=== PATIENT | male | born 1980 | race Caucasian/White ===

== ENCOUNTER 2018-04-09 11:58 | Emergency (ER) | payer OTHER ==
--- OUTSIDE RECORDS SUMMARY | 2018-04-09 12:02 | XMS REPORT | Clinical Summary ---
:1980 Author Organization [facility] Address [address] [place] [address] Phone Care Team Providers Name Role Phone Unavailable Primary Care Provider Unavailable Allergies No Known Allergies Current Medications Prescription Sig. Disp. Refills Start Date End Date Status pantoprazole Take 40 mg by 03/09/2018 Discontinued (PROTONIX) 40 MG mouth daily. tablet varenicline (CHANTIX) Take 1 mg by 03/09/2018 Discontinued 1 mg tablet mouth 2 (two) times daily Give with meals and with a full glass of water. . aspirin 81 MG EC Take 81 mg by 03/09/2018 Discontinued tablet mouth daily. gabapentin Take 300 mg by 03/09/2018 Discontinued (NEURONTIN) 300 MG mouth 3 (three) capsule times daily. butalbital-acetaminop Take 1 tablet by 03/09/2018 Discontinued hen-caffeine mouth every 6 (FIORICET, ESGIC) (six) hours as 50-325-40 mg per needed for tablet Headaches. ondansetron (ZOFRAN) Take by mouth 03/09/2018 Discontinued 8 MG tablet every 8 (eight) hours as needed for Nausea. benzonatate Take 100 mg by 03/09/2018 Discontinued (TESSALON) 100 MG mouth 3 (three) capsule times daily as needed for Cough. atorvastatin Take 40 mg by 03/09/2018 Discontinued (LIPITOR) 40 MG mouth daily. tablet omega-3 fatty Take 2 g by 03/09/2018 Discontinued acids-fish oil mouth 2 (two) 340-1,000 mg Cap per times daily. capsule naproxen Take 220 mg by 03/09/2018 Discontinued (ALEVE,ANAPROX,MIDOL) mouth 2 (two) 220 MG tablet times daily with breakfast and dinner. ergocalciferol Take 50,000 03/09/2018 Discontinued (VITAMIN D2) 50,000 Units by mouth unit capsule once a week. loratadine (CLARITIN) Take 10 mg by 03/09/2018 Discontinued 10 mg tablet mouth daily. Active Problems Not on file Encounters Date Type Specialty Care Team Description 03/10/2018 Procedure Pass Gastroenterology 03/09/2018 Anesthesia Event Gastroenterology Yair Puckett MD 03/03/2018 Outside Orders Rick Alcala Abdominal pain, MD Pipo generalized (Primary Dx) after 04/08/2017 Social History Tobacco Use Types Packs/Day Years Used Date Current Every Day Smoker 0.5 Smokeless Tobacco: Never Used Tobacco Cessation: Ready to Quit: Yes Alcohol Use Drinks/Week oz/Week Comments Yes 6 pack a month Sex Assigned at Date Recorded Not on file Last Filed Vital Signs Vital Sign Reading Time Taken Blood Pressure - - Pulse - - Temperature - - Respiratory Rate - - Oxygen Saturation - - Inhaled Oxygen Concentration - - Weight 113.4 kg (250 lb) 03/05/2018 11:20 AM CDT Height 185.4 cm (6' 1") 03/05/2018 11:20 AM CDT Body Mass Index 32.98 03/05/2018 11:20 AM CDT Plan of Treatment Not on file Results Not on fileafter 04/08/2017
--- OUTSIDE RECORDS SUMMARY | 2018-04-09 12:02 | XMS REPORT ---
:1980 [facility] Address [address] [place] [address] Dr. Cuevas [address] [place] [address] Care Team Providers Name Role Phone Unavailable Unavailable Unavailable Problems This patient has no known problems. Allergies, Adverse Reactions, Alerts This patient has no known allergies or adverse reactions. Medications This patient has no known medications. Results Test Description Test Time Test Comments Text Results Atomic Results Result Comments CT ABDOMEN/PELVIS WITH 2017-04-16 [facility]3080 15:41:00 [place], [place] [id number] IMAGING REPORTPatient Name: Odalys PHILIPte of Service: [id number]: 36 Sex: M Order #: [id number] [facility] 1980 [facility] Number: [id number] Record Number: [id number] Hospital Number: [id number] Physician: ESTELA TELLEZ TANOrdering Physician: RUPERTO KC ABDOMEN AND PELVIS WITH CONTRAST:CLINICAL HISTORY: Pain in the left lower rib cage/upper abdomen post traumaTECHNIQUE: Examination is performed following intravenous administration of100 mL of Isovue-300. 4 mm axial sections were obtained with coronal andsagittal reconstructions.This CT exam was performed using one or more of the following dosereduction techniques: Automated exposure control, adjustment of the MA andor KV according to patient size or use of iterative reconstructiontechnique.FINDINGS: The enhanced liver, spleen, pancreas, adrenals, kidneys, uretersand bladder oral normal.The retrocecal appendix is normal. The bowel loops are unremarkable.There is no evidence of free air or ascites.There is no evidence of a soft tissue hematoma.The lower rib cage, lumbar spine and bony pelvis are normal.Impression: Normal CT scan abdomen and pelvisElectronically Signed By: Giovanni Altman M.D., 04/16/2017 3:39 PMLegally authenticated by DEMARCO Merlos 2017-04-16 15:39:04 CT THORAX W/CONT 2017-04-16 [facility]3080 15:39:00 [place], [place] [id number] IMAGING REPORTPatient Name: Dharmesh PHILIP of Service: [id number]: 36 Sex: M Order #: [id number] [facility] 1980 [facility] Number: [id number] Record Number: [id number] Hospital Number: [id number] Physician: ESTELA TELLEZ TANOrdering Physician: RUPERTO KC CHEST WITH INTRAVENOUS CONTRAST:CLINICAL HISTORY: Pain in the left lower rib cage after trauma; dizzinessand nauseaTECHNIQUE: Examination is performed following intravenous administration of100 mL of Isovue-300. 4 mm axial sections were obtained with coronal andsagittal reconstructions.This CT exam was performed using one or more of the following dosereduction techniques: Automated exposure control, adjustment of the MA andor KV according to patient size or use of iterative reconstructiontechnique.FINDINGS: The heart and great vessels are within normal limits.There is no evidence of mediastinal or hilar adenopathy and the lungs areclear with no focal infiltrates, pneumothorax or contusion.The bony thorax appears grossly intact.Impression: Normal CT scan of the chestElectronically Signed By: Giovanni Altman M.D., 04/16/2017 3:36 PMLegally authenticated by DEMARCO Merlos 2017-04-16 15:36:49
--- NOTE | 2018-04-09 13:32 | ER ---
Nurse's Notes [facility] Name: Diogo Holden Age: 37 yrs Sex: Male : 1980 Arrival Date: 04/09/2018 Time: 12:03 Bed 23 Private MD: Diagnosis: Low back pain Presentation: 04/09 12:13 Presenting complaint: Patient states: Low back pain that radiates down bilateral legs. aj Patient reports pain has been chronic for over 1 year. Seen in ER for this complaint in [place]. Transition of care: patient was not received from another setting of care. Onset of symptoms was January 2017. Initial Sepsis Screen: Does the patient meet any 2 criteria? No. Patient's initial sepsis screen is negative. Does the patient have a suspected source of infection? No. Patient's initial sepsis screen is negative. Care prior to arrival: None. 12:13 Method Of Arrival: Ambulatory 12:13 Acuity: HEATHER 4 aj Triage Assessment: 12:17 General: Appears in no apparent distress. comfortable, Behavior is calm, cooperative, aj appropriate for age. Pain: Complains of pain in coccyx, left lower back, right lower back, left gluteus amalia, right gluteus amalia, left gluteal fold and right gluteal fold. Neuro: Level of Consciousness is awake, alert, obeys commands, Oriented to person, place, time, situation, Appropriate for age. Respiratory: Airway is patent Respiratory effort is even, unlabored, Respiratory pattern is regular, symmetrical. Derm: Skin is intact, is healthy with good turgor, Skin is pink, warm \\T\\ dry. normal. Musculoskeletal: Range of motion: intact in all extremities, Reports pain in coccyx, left lower back, right lower back, left gluteus amalia, right gluteus amalia, left gluteal fold and right gluteal fold. Historical: - Allergies: 12:17 No Known Allergies; aj - Home Meds: 12:17 gabapentin 300 mg oral cap 3 times per day [Active]; Chantix oral oral [Active]; Zofran aj (as hydrochloride) 4 mg Oral tab [Active]; aspirin 81 mg Oral chew 1 tab once daily [Active]; Butalbital Compound 50-325-40 mg Oral tab 1 tab every 4 hours [Active]; loratadine 10 mg oral TbDL 1 tab once daily [Active]; atorvastatin 20 mg oral tab 1 tab once daily [Active]; pantoprazole 40 mg oral TbEC 1 tab once daily [Active]; - PMHx: 12:17 Hyperlipidemia; Chronic pain; "stomach issues"; aj - PSHx: 12:17 wisdom teeth; aj - Immunization history:: Adult Immunizations up to date. - Social history:: Smoking status: Patient uses tobacco products, smokes one pack cigarettes per day. Screenin:00 Abuse screen: Denies threats or abuse. Denies injuries from another. Nutritional kr2 screening: No deficits noted. Tuberculosis screening: No symptoms or risk factors identified. Fall Risk None identified. Assessment: 13:00 General: Appears in no apparent distress. uncomfortable, well groomed, well developed, kr2 well nourished, Behavior is calm, cooperative, appropriate for age. Pain: Complains of pain in back Pain radiates to right leg and left leg Pain currently is 6 out of 10 on a pain scale. Quality of pain is described as aching, sharp, Pain began 1 year ago Is continuous, Alleviated by medications, rest, Aggravated by increased activity. Neuro: Level of Consciousness is awake, alert, obeys commands, Oriented to person, place, time, situation, French Tutor are equal bilaterally Moves all extremities. Intact. Cardiovascular: Capillary refill < 3 seconds in bilateral fingers Patient's skin is warm and dry. Respiratory: Airway is patent Respiratory effort is even, unlabored, Respiratory pattern is regular, symmetrical, Breath sounds are clear bilaterally. GI: Abdomen is flat, non-distended. : No signs and/or symptoms were reported regarding the genitourinary system. EENT: Oral mucosa is moist. Derm: Skin is intact, is healthy with good turgor, Skin is pink, warm \\T\\ dry. Musculoskeletal: Circulation, motion, and sensation intact. Vital Signs: 12:17 BP 125 / 85; Pulse 72; Resp 18; Temp 98.2; Pulse Ox 99% on R/A; Weight 104.33 kg; aj Height 6 ft. 1 in. (185.42 cm); Pain 6/10; 13:15 BP 124 / 78; Pulse 70; Resp 16; Pulse Ox 99% on R/A; kr2 12:17 Body Mass Index 30.34 (104.33 kg, 185.42 cm) ED Course: 12:03 Patient arrived in ED. sb2 12:14 Triage completed. aj 12:17 Arm band placed on right wrist. Patient placed in an exam room. aj 12:53 Barbara Ferrer, RN is Primary Nurse. kr2 12:56 Glen Remy NP is PHCP. pm1 12:56 Maximilian Cain MD is Attending Physician. pm1 13:00 Patient has correct armband on for positive identification. Bed in low position. Call kr2 light in reach. Side rails up X 1. Adult w/ patient. Pulse ox on. NIBP on. Door closed. Warm blanket given. Head of bed elevated. 13:50 No provider procedures requiring assistance completed. Patient did not have IV access kr2 during this emergency room visit. Administered Medications: No medications were administered Outcome: 13:32 Discharge ordered by . pm1 13:50 Discharged to home ambulatory, with family. kr2 13:50 Condition: good 13:50 Discharge instructions given to patient, family, Instructed on discharge instructions, follow up and referral plans. medication usage, Demonstrated understanding of instructions, follow-up care, medications, Prescriptions given X 2. 13:51 Patient left the ED. kr2 Signatures: Rita Brumfield, RN RN Glen Dudley, LETICIA CHILD AND FAMILY THERAPIST pm1 Barbara Ferrer, SLAVA RN kr2 Radha Paul sb2
--- NOTE | 2018-04-09 13:32 | EDPHYS ---
Physician Documentation [facility] Name: Diogo Holden Age: 37 yrs Sex: Male : 1980 Arrival Date: 04/09/2018 Time: 12:03 Bed 23 Private MD: ED Physician Maximilian Cain HPI: 04/09 13:30 This 37 yrs old Male presents to ER via Ambulatory with complaints of Back pm1 Pain. 13:30 The patient presents with pain that is chronic, with no known mechanism of injury. The pm1 symptoms are located in the low back. Onset: The symptoms/episode began/occurred 1 year(s) ago. The pain radiates to the right leg and left leg. Associated signs and symptoms: Pertinent negatives: abdominal pain, chest pain, dysuria, fever, incontinence, numbness, tingling, urinary retention. The problem was sustained Result of fall injury in the past. Modifying factors: The patient symptoms are alleviated by nothing, the patient symptoms are aggravated by bending, movement, walking. Severity of symptoms: in the emergency department the symptoms are unchanged. The patient has experienced similar episodes in the past, chronically. Historical: - Allergies: 12:17 No Known Allergies; aj - Home Meds: 12:17 gabapentin 300 mg oral cap 3 times per day [Active]; Chantix oral oral [Active]; Zofran aj (as hydrochloride) 4 mg Oral tab [Active]; aspirin 81 mg Oral chew 1 tab once daily [Active]; Butalbital Compound 50-325-40 mg Oral tab 1 tab every 4 hours [Active]; loratadine 10 mg oral TbDL 1 tab once daily [Active]; atorvastatin 20 mg oral tab 1 tab once daily [Active]; pantoprazole 40 mg oral TbEC 1 tab once daily [Active]; - PMHx: 12:17 Hyperlipidemia; Chronic pain; "stomach issues"; aj - PSHx: 12:17 wisdom teeth; aj - Immunization history:: Adult Immunizations up to date. - Social history:: Smoking status: Patient uses tobacco products, smokes one pack cigarettes per day. ROS: 13:30 Constitutional: Negative for fever, chills, and weight loss, Eyes: Negative for injury, pm1 pain, redness, and discharge, ENT: Negative for injury, pain, and discharge, Neck: Negative for injury, pain, and swelling, Cardiovascular: Negative for chest pain, palpitations, and edema, Respiratory: Negative for shortness of breath, cough, wheezing, and pleuritic chest pain, Abdomen/GI: Negative for abdominal pain, nausea, vomiting, diarrhea, and constipation. 13:30 : Negative for injury, bleeding, discharge, and swelling, MS/Extremity: Negative for injury and deformity, Skin: Negative for injury, rash, and discoloration, Neuro: Negative for headache, weakness, numbness, tingling, and seizure. 13:30 Back: Positive for of the left low back and right low back. Exam: 13:30 Constitutional: This is a well developed, well nourished patient who is awake, alert, pm1 and in no acute distress. Head/Face: Normocephalic, atraumatic. Eyes: Pupils equal round and reactive to light, extra-ocular motions intact. Lids and lashes normal. Conjunctiva and sclera are non-icteric and not injected. Cornea within normal limits. Periorbital areas with no swelling, redness, or edema. ENT: Nares patent. No nasal discharge, no septal abnormalities noted. Tympanic membranes are normal and external auditory canals are clear. Oropharynx with no redness, swelling, or masses, exudates, or evidence of obstruction, uvula midline. Mucous membranes moist. Neck: Trachea midline, no thyromegaly or masses palpated, and no cervical lymphadenopathy. Supple, full range of motion without nuchal rigidity, or vertebral point tenderness. No Meningismus. Chest/axilla: Normal chest wall appearance and motion. Nontender with no deformity. No lesions are appreciated. Cardiovascular: Regular rate and rhythm with a normal S1 and S2. No gallops, murmurs, or rubs. Normal PMI, no JVD. No pulse deficits. Respiratory: Lungs have equal breath sounds bilaterally, clear to auscultation and percussion. No rales, rhonchi or wheezes noted. No increased work of breathing, no retractions or nasal flaring. Abdomen/GI: Soft, non-tender, with normal bowel sounds. No distension or tympany. No guarding or rebound. No evidence of tenderness throughout. 13:30 MS/ Extremity: Pulses equal, no cyanosis. Neurovascular intact. Full, normal range of motion. 13:30 Back: normal spinal alignment noted, muscle spasm, is appreciated in the left low back, left mid back, right mid back and right low back. 13:30 Neuro: Orientation: is normal, Mentation: is normal, Motor: is normal, moves all fours, Sensation: is normal, no obvious gross deficits, Gait: is steady, at a normal pace, without difficulty, Deep tendon reflexes are 2+ (normal) in the right Achilles and left Achilles, Babinski testing is normal. Vital Signs: 12:17 BP 125 / 85; Pulse 72; Resp 18; Temp 98.2; Pulse Ox 99% on R/A; Weight 104.33 kg; aj Height 6 ft. 1 in. (185.42 cm); Pain 6/10; 13:15 BP 124 / 78; Pulse 70; Resp 16; Pulse Ox 99% on R/A; kr2 12:17 Body Mass Index 30.34 (104.33 kg, 185.42 cm) aj MDM: 12:58 Patient medically screened. pm1 13:30 Data reviewed: vital signs. Data interpreted: Pulse oximetry: on room air is 99 %. pm1 Interpretation: normal. Counseling: I had a detailed discussion with the patient and/or guardian regarding: the historical points, exam findings, and any diagnostic results supporting the discharge/admit diagnosis, the need for outpatient follow up, to return to the emergency department if symptoms worsen or persist or if there are any questions or concerns that arise at home. Administered Medications: No medications were administered Disposition: 04/10 07:21 Co-signature as Attending Physician, Maximilian Cain MD I agree with the assessment and wilder plan of care. Disposition: 04/09/18 13:32 Discharged to Home. Impression: Low back pain. - Condition is Stable. - Discharge Instructions: Back Pain, Adult, Chronic Back Pain, Sciatica. - Prescriptions for Naprosyn 500 mg Oral Tablet - take 1 tablet by ORAL route 2 times per day take with food; 30 tablet. Cyclobenzaprine 10 mg Oral Tablet - take 1 tablet by ORAL route every 8 hours As needed; 30 tablet. - Medication Reconciliation Form, Thank You Letter form. - Follow up: Emergency Department; When: As needed; Reason: Worsening of condition. Follow up: Private Physician; When: 2 - 3 days; Reason: Recheck today's complaints, Continuance of care, Re-evaluation by your physician. - Problem is new. - Symptoms have improved. Signatures: Rita Brumfield, RN RN Maximilian Colmenares MD MD cha Marinas, Patrick, OVEN DRIER TENDER OVEN DRIER TENDER pm1 Barbara Ferrer RN RN kr2 Corrections: (The following items were deleted from the chart) 04/09 13:51 13:32 04/09/2018 13:32 Discharged to Home. Impression: Low back pain. Condition is kr2 Stable. Forms are Medication Reconciliation Form, Thank You Letter, Antibiotic Education, Prescription Opioid Use. Follow up: Emergency Department; When: As needed; Reason: Worsening of condition. Follow up: Private Physician; When: 2 - 3 days; Reason: Recheck today's complaints, Continuance of care, Re-evaluation by your physician. Problem is new. Symptoms have improved. pm1
== END 2018-04-09 13:51 | disposition home or self-care (01) ==
LOC: ER 11:58
DX: M54.5 Low back pain (principal); E78.5 Hyperlipidemia, unspecified; F17.210 Nicotine dependence, cigarettes, uncomplicated
CPT/HCPCS: 99283

== ENCOUNTER 2018-06-24 16:25 | Emergency (ER) | payer OTHER ==
--- OUTSIDE RECORDS SUMMARY | 2018-06-24 16:27 | XMS REPORT ---
:1980 [facility] Address [address] Cuevas [address] [place] [address] Care Team Providers Name Role Phone Unavailable Unavailable Unavailable Problems This patient has no known problems. Allergies, Adverse Reactions, Alerts This patient has no known allergies or adverse reactions. Medications This patient has no known medications. Results Test Description Test Time Test Comments Text Results Atomic Results Result Comments CT ABDOMEN/PELVIS WITH 2017-04-16 [facility]3080 15:41:00 [place], [place] [id number] IMAGING REPORTPatient Name: Dharmesh PHILIP of Service: [id number]: 36 Sex: M Order #: [id number] Room: ERSDOB: 1980 X-Ray Number: [id number] Record Number: [id number] Hospital Number: [id number] Physician: ESTELA TELLEZ TANOrdering Physician: RUPERTO KC [...] Merlos 2017-04-16 15:39:04 CT THORAX W/CONT 2017-04-16 [facility]3080 15:39:00 [place], [place] [id number] IMAGING REPORTPatient Name: Dharmesh PHILIP of Service: [id number]: 36 Sex: M Order #: [id number] [facility] 1980 [facility] Number: [id number] Record Number: [id number] Hospital Number: [id number] Physician: ESTELA TELLEZ TANOrdering Physician: RUPERTO KC [...]
--- OUTSIDE RECORDS SUMMARY | 2018-06-24 16:27 | XMS REPORT ---
:1980 Author Organization [employer] Care Team Providers Name Role Phone Sirisha Meadows Provider Role Unavailable Allergies, Adverse Reactions, Alerts Substance Reaction Event Type mucomyst Info Not Available Non Drug Allergy Problems Problem Type Condition Code Onset Dates Condition Status Assessment Lumbar back pain with radiculopathy M54.17 Active affecting right lower extremity Problem Cigarette nicotine dependence F17.210 Active without complication Problem Cyclical vomiting with nausea, G43.A0 Active intractability of vomiting not specified Problem Vitamin D deficiency E55.9 Active Problem Mixed hyperlipidemia E78.2 Active Problem 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 Problem Gastroesophageal reflux disease K21.9 Active without esophagitis Problem Migraine with aura and without G43.109 Active status migrainosus, not intractable Problem Anxiety F41.9 Active Problem Environmental allergies Z91.09 Active Assessment 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 Assessment Mixed hyperlipidemia E78.2 Active Assessment Other specified abnormal findings R79.89 Active of blood chemistry Assessment Vitamin D deficiency E55.9 Active Assessment Other abnormality of red blood R71.8 Active cells Assessment Mid-back pain, acute M54.9 Active Medications Medication Code Code Instructions Start End Status Dosage System Date Date Gabapentin [facility] 64498909990 300 MG Orally Active 1 capsule Three times a day Pantoprazole [facility] 27936484460 40 MG Orally Active 1 tablet Sodium Once a day Borage Oil [facility] 33688625665 1000 MG Orally Active not defined Decara [facility] 68102873889 10512 UNIT Active 1 capsule Orally weekly Fish Oil [facility] 35903126337 1000 MG Orally Active 1 capsule Once a day Butalbital-APAP- [facility] 88820276161 50-300-40 MG Active 1 capsule Caffeine Orally prn as needed Chantix [facility] 67160316593 1 MG Orally Active 1 tablet Twice a day Flax Seed Oil [facility] 72855736083 1000 MG Orally Active not defined Benzonatate [facility] 61166720468 200 MG Orally Active 1 capsule prn Loratadine [facility] 86069248572 10 MG Orally Active 1 tablet Once a day Aspirin 81 ND 52284101024 81 MG Orally Active 1 tablet Once a day Butalbital-Aceta [facility] 11113501645 50-325 MG March Active 1 tablet minophen Orally every 6 2017, as needed hrs prn 2017 Migraine Atorvastatin [facility] 21471950964 40 MG Orally Active 1 tablet Calcium Once a day in evening Zofran [facility] 35912182741 4 MG Orally BID Active 1 tab prn nausea Aleve [facility] 59569574515 220 MG Orally Active 1 tablet every 12 hrs with food or milk as needed Results No Known Results Summary Purpose [employer] Submission
--- OUTSIDE RECORDS SUMMARY | 2018-06-24 16:27 | XMS REPORT ---
:1980 Author Organization [employer] Care Team Providers Name Role Phone Sirisha Meadows Provider Role Unavailable Allergies No Known Allergies Problems Problem Type Condition Code Onset Dates Condition Status Problem Cigarette nicotine dependence F17.210 Active without [...] F41.9 Active Problem Environmental allergies Z91.09 Active Medications No Known Medications Results No Known Results Summary Purpose [employer] Submission
--- OUTSIDE RECORDS SUMMARY | 2018-06-24 16:27 | XMS REPORT | Clinical Summary ---
:1980 Author Organization [facility] Address [address] [place] [address] Phone Care Team Providers Name Role Phone [...] pain, MD Pipo generalized (Primary Dx) after 06/23/2017 Social History Tobacco Use Types Packs/Day Years [...] Not on file Results Not on fileafter 06/23/2017
--- OUTSIDE RECORDS SUMMARY | 2018-06-24 16:27 | XMS REPORT ---
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 Assessment Lumbar back pain with radiculopathy M54.17 Active affecting right lower extremity Medications Medication Code Code Instructions Start End Status Dosage System Date Date Gabapentin [facility] 92703990537 300 MG Orally Active 1 capsule Three times a day Pantoprazole [facility] 99539633149 40 MG Orally Active 1 tablet Sodium Once a day Borage Oil [facility] 26624798260 1000 MG Orally Active not defined Decara [facility] 67478877891 13587 UNIT Active 1 capsule Orally weekly Fish Oil [facility] 06311359283 1000 MG Orally Active 1 capsule Once a day Butalbital-APAP- [facility] 45218170518 50-300-40 MG Active 1 capsule Caffeine Orally prn as needed Chantix [facility] 01539573901 1 MG Orally Active 1 tablet Twice a day Flax Seed Oil [facility] 35279403212 1000 MG Orally Active not defined Benzonatate [facility] 52893017845 200 MG Orally Active 1 capsule prn Loratadine [facility] 70010144039 10 MG Orally Active 1 tablet Once a day Aspirin 81 NDC 86960462787 81 MG Orally Active 1 tablet Once a day Butalbital-Aceta [facility] 31795966230 50-325 MG March Active 1 tablet minophen Orally every 6 2017 03, as needed hrs prn 2017 Migraine Atorvastatin [facility] 39970119446 40 MG Orally Active 1 tablet Calcium Once a day in evening Zofran [facility] 07802009329 4 MG Orally BID Active 1 tab prn nausea Aleve [facility] 65566552974 220 MG Orally Active 1 tablet every 12 hrs with food or milk as needed Results No Known Results Summary Purpose eClinicalWorks Submission
[2018-06-24] MEDS ORDERED: LIDOCAINE 1% MPF 5 ML VIAL ONE (17:49)
[2018-06-24] MEDS ORDERED: BUPIVACAINE 0.5% PF 10 ML VIAL ONE (17:50)
[2018-06-24] MEDS ORDERED: IBUPROFEN 400 MG TAB ONE (17:50)
[2018-06-24] MEDS ORDERED: TETANUS & DIPHTHERIA TOX,ADULT 0.5 ML VIAL ONE (17:52)
--- NOTE | 2018-06-24 18:39 | ER ---
Nurse's Notes [facility] Name: Diogo Holden Age: 37 yrs Sex: Male : 1980 Arrival Date: 06/24/2018 Time: 16:28 Bed 15 Private MD: Diagnosis: Laceration without foreign body of finger without damage to nail-Right Index and Middle Fingers Presentation: 06/24 16:41 Presenting complaint: Patient states: right 2nd and 3rd digit laceration on sheet rock sv that occurred about 30 mins ago. Transition of care: patient was not received from another setting of care. Onset of symptoms was June 24, 2018 at 16:00. Care prior to arrival: None. 16:41 Method Of Arrival: Ambulatory sv 16:41 Acuity: HEATHER 3 sv Historical: - Allergies: 16:44 No Known Allergies; sv - Home Meds: 16:44 aspirin 81 mg oral chew once daily [Active]; atorvastatin 20 mg Oral tab 1 tab once sv daily [Active]; Butalbital Compound 50-325-40 mg Oral tab 1 tab every 4 hours [Active]; Chantix Oral [Active]; gabapentin 300 mg Oral cap 3 times per day [Active]; loratadine 10 mg Oral TbDL 1 tab once daily [Active]; pantoprazole 40 mg Oral chew 1 tab once daily [Active]; Zofran (as hydrochloride) 4 mg Oral tab [Active]; - PMHx: 16:44 "stomach issues"; Chronic pain; Hyperlipidemia; sv - PSHx: 16:44 wisdom teeth; sv - Immunization history:: Adult Immunizations up to date, Last tetanus immunization: unknown. - Social history:: Smoking status: Patient uses tobacco products, smokes one pack cigarettes per day. - Ebola Screening: : No symptoms or risks identified at this time. Screenin:04 Abuse screen: Denies threats or abuse. Denies injuries from another. Nutritional aj1 screening: No deficits noted. Tuberculosis screening: No symptoms or risk factors identified. 19:09 Fall Risk None identified. aj1 Assessment: 17:20 General: Appears in no apparent distress. uncomfortable, Behavior is calm, cooperative, aj1 appropriate for age. Pain: Complains of pain in palmar aspect of middle phalanx of right middle finger and palmar aspect of middle phalanx of right index finger Pain does not radiate. Neuro: Level of Consciousness is awake, alert, obeys commands, Oriented to person, place, time, situation. Cardiovascular: Patient's skin is warm and dry. Respiratory: Airway is patent Respiratory effort is even, unlabored, Respiratory pattern is regular, symmetrical. GI: No signs and/or symptoms were reported involving the gastrointestinal system. : No signs and/or symptoms were reported regarding the genitourinary system. EENT: No signs and/or symptoms were reported regarding the EENT system. Derm: Skin is pink, warm \\T\\ dry. Musculoskeletal: Capillary refill < 3 seconds. Injury Description: Laceration sustained to palmar aspect of middle phalanx of right middle finger and palmar aspect of middle phalanx of right index finger is bleeding moderately. 18:10 Reassessment: Patient appears in no apparent distress at this time. No changes from aj1 previously documented assessment. Patient and/or family updated on plan of care and expected duration. Pain level reassessed. Patient is alert, oriented x 3, equal unlabored respirations, skin warm/dry/pink. 19:07 Reassessment: Patient appears in no apparent distress at this time. No changes from sv previously documented assessment. Patient and/or family updated on plan of care and expected duration. Pain level reassessed. Patient is alert, oriented x 3, equal unlabored respirations, skin warm/dry/pink. Vital Signs: 16:44 BP 155 / 109; Pulse 92; Resp 20; Pulse Ox 97% ; Weight 113.4 kg; Height 6 ft. 1 in. sv (185.42 cm); Pain 3/10; 18:04 BP 149 / 102; Pulse 88; Resp 18; Pulse Ox 99% ; aj1 16:44 Body Mass Index 32.98 (113.40 kg, 185.42 cm) sv ED Course: 16:28 Patient arrived in ED. mr 16:43 Triage completed. sv 16:44 Arm band placed on right wrist. sv 17:18 Maximilian Padilla PA is PHCP. cp 17:18 Aidan Escoto MD is Attending Physician. cp 17:18 Molly Lizarraga, SLAVA is Primary Nurse. aj1 17:25 Wound care: to laceration located on palmar aspect of distal phalanx of right ring jp3 finger, palmar aspect of middle phalanx of right ring finger, palmar aspect of distal phalanx of right middle finger, palmar aspect of middle phalanx of right middle finger, palmar aspect of distal phalanx of right index finger and palmar aspect of middle phalanx of right index finger was cleaned with Hibiclens, soaked in Betadine solution, debrided using irrigated with normal saline, Patient tolerated well. 17:36 Diet: Patient given ice chips. Patient given water. jp3 18:04 Patient has correct armband on for positive identification. Bed in low position. Call aj1 light in reach. Side rails up X 1. 18:04 Assist provider with laceration repair on palmar aspect of middle phalanx of right aj1 middle finger and palmar aspect of middle phalanx of right index finger Set up tray. 19:07 Wound care: to laceration was dressed with 4X4s, Kerlix. sv 19:07 Patient did not have IV access during this emergency room visit. 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 Exp: aj1 07/20/2020. Lot #: [id number]. } Route: IM; Site: right deltoid; 19:07 Follow up: Response: No adverse reaction sv 17:56 Drug: Marcaine (0.5 %) 5 ml {Note: given by PA. Darius} Volume: 10 ml; Route: aj1 Infiltration; 17:57 Drug: Lidocaine (1 %) 5 ml {Note: given by PA. Darius} Volume: 5 ml; Route: aj1 Infiltration; Outcome: 18:39 Discharge ordered by MD. mosley 19:08 Discharged to home ambulatory. aj1 19:08 Condition: good 19:08 Discharge instructions given to patient, Instructed on discharge instructions, follow up and referral plans. wound care, Demonstrated understanding of instructions, follow-up care, wound care. 19:09 Patient left the ED. aj1 Signatures: Molly Lizarraga RN RN ajRadha De Santiago RN RN sv Rivera, Maria mr Page, Corey, PA PA cp Pisarski, Jacob jp3 Corrections: (The following items were deleted from the chart) 18:09 18:04 General: Appears in no apparent distress. uncomfortable, Behavior is calm, aj1 cooperative, appropriate for age, aj1 : 18:04 Pain: Complains of pain in palmar aspect of middle phalanx of right middle finger aj1 and palmar aspect of middle phalanx of right index finger Pain does not radiate. [facility] : 18:04 Neuro: Level of Consciousness is awake, alert, obeys commands, Oriented to [facility] person, place, time, situation, [facility] : 18:04 Cardiovascular: [facility]'s [facility] is [facility] and [facility]. [facility] Respiratory: Airway is patent Respiratory effort is even, unlabored, Respiratory [facility] pattern is regular, symmetrical, [facility] : 18:04 GI: No signs and/or symptoms were reported involving the gastrointestinal system. [facility] 18:04 : No signs and/or symptoms were reported regarding the [facility]ourinary system. [facility] E[facility]: No signs and/or symptoms were reported regarding the EENT system. [facility]04 Derm: Skin is pink, warm \\T\\ dry. [facility] 18:04 Musculoskeletal: Capillary refill < 3 seconds, [place] [id number] : 18:04 Injury Description: Laceration sustained to palmar aspect of middle phalanx of aj1 right middle finger and palmar aspect of middle phalanx of right index finger is bleeding moderately, aj
--- NOTE | 2018-06-24 18:40 | EDPHYS ---
Physician Documentation [facility] Name: Diogo Holden Age: 37 yrs Sex: Male : 1980 Arrival Date: 06/24/2018 Time: 16:28 Bed 15 Private MD: ED Physician Aidan Escoto HPI: 06/24 17:30 This 37 yrs old Male presents to ER via Ambulatory with complaints of cp laceration to fingers. 17:30 The patient or guardian reports a laceration, clean. The complaints affect the palmar cp aspect of middle phalanx of right index finger and palmar aspect of middle phalanx of right middle finger. Context: The problem was sustained at work, resulted from sharp edge of sheet rock. 17:30 Onset: The symptoms/episode began/occurred just prior to arrival. Associated signs and cp symptoms: Pertinent negatives: cyanosis distally, decreased sensation distally. Historical: - Allergies: 16:44 No Known Allergies; sv - Home Meds: 16:44 aspirin 81 mg oral chew once daily [Active]; atorvastatin 20 mg Oral tab 1 tab once sv daily [Active]; Butalbital Compound 50-325-40 mg Oral tab 1 tab every 4 hours [Active]; Chantix Oral [Active]; gabapentin 300 mg Oral cap 3 times per day [Active]; loratadine 10 mg Oral TbDL 1 tab once daily [Active]; pantoprazole 40 mg Oral chew 1 tab once daily [Active]; Zofran (as hydrochloride) 4 mg Oral tab [Active]; - PMHx: 16:44 "stomach issues"; Chronic pain; Hyperlipidemia; sv - PSHx: 16:44 wisdom teeth; sv - Immunization history:: Adult Immunizations up to date, Last tetanus immunization: unknown. - Social history:: Smoking status: Patient uses tobacco products, smokes one pack cigarettes per day. - Ebola Screening: : No symptoms or risks identified at this time. ROS: 17:35 Constitutional: Negative for body aches, chills, fever, poor PO intake. cp 17:35 Eyes: Negative for injury, pain, redness, and discharge. cp 17:35 ENT: Negative for drainage from ear(s), ear pain, sore throat, difficulty swallowing, difficulty handling secretions. 17:35 Cardiovascular: Negative for chest pain, edema, palpitations. 17:35 Respiratory: Negative for cough, shortness of breath, wheezing. 17:35 Skin: Positive for laceration(s), of the palmar aspect of middle phalanx of right index finger and palmar aspect of middle phalanx of right middle finger. 17:35 Neuro: Negative for numbness, tingling. 17:35 All other systems are negative. Exam: 17:40 Constitutional: The patient appears in no acute distress, alert, awake, well developed, cp well nourished, uncomfortable. 17:40 Head/Face: Normocephalic, atraumatic. cp 17:40 Eyes: Periorbital structures: appear normal, Conjunctiva: normal, no exudate, no cp injection, Lids and lashes: appear normal, bilaterally. 17:40 ENT: External ear(s): are unremarkable, Nose: is normal, Mouth: Lips: moist, Oral cp mucosa: moist, Posterior pharynx: is normal, airway is patent. 17:40 Chest/axilla: Inspection: normal. 17:40 Cardiovascular: Rate: normal. 17:40 Respiratory: the patient does not display signs of respiratory distress, Respirations: normal, no use of accessory muscles, no retractions, no splinting, no tachypnea. 17:40 Abdomen/GI: Exam negative for discomfort, distension, guarding, Inspection: abdomen appears normal. 17:40 Musculoskeletal/extremity: Perfusion: the extremity is normally perfused throughout, Sensation intact. Tendon exam: specific tendon testing normal through active and passive range of motion 17:40 Skin: injury, laceration(s), the wound is approximately 2 cm(s), of the palmar aspect of middle phalanx of right index finger, the second wound is approximately 1 cm(s), of the palmar aspect of middle phalanx of right middle finger, that can be described as clean, linear, with mild bleeding. Vital Signs: 16:44 BP 155 / 109; Pulse 92; Resp 20; Pulse Ox 97% ; Weight 113.4 kg; Height 6 ft. 1 in. sv (185.42 cm); Pain 3/10; 18:04 BP 149 / 102; Pulse 88; Resp 18; Pulse Ox 99% ; aj1 16:44 Body Mass Index 32.98 (113.40 kg, 185.42 cm) sv Laceration: 18:30 Wound Repair of 3cm ( 1.2in ) subcutaneous laceration to palmar aspect of middle cp phalanx of right index finger and palmar aspect of middle phalanx of right middle finger. Linear shaped.. Distal neuro/vascular/tendon intact. Anesthesia: Digital block administered with 6 mls of Lido/Marcaine. Wound prep: Extensive cleansing by nurse, Wound irrigation by me. Skin closed with 6 5-0 Prolene using interrupted sutures and sterile technique. Dressed with Bacitracin, non-adherent dressing. Patient tolerated well. MDM: 17:18 Patient medically screened. cp 17:30 Differential diagnosis: open fracture, tendon injury, superficial laceration, retained cp foreign body. 18:38 Data reviewed: vital signs, nurses notes, and as a result, I will discharge patient. cp 18:38 Counseling: I had a detailed discussion with the patient and/or guardian regarding: the cp historical points, exam findings, and any diagnostic results supporting the discharge/admit diagnosis, to return to the emergency department if symptoms worsen or persist or if there are any questions or concerns that arise at home. Response to treatment: the patient's symptoms have markedly improved after treatment, and as a result, I will discharge patient. 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 Exp: aj1 07/20/2020. Lot #: [id number]. } Route: IM; Site: right deltoid; 19:07 Follow up: Response: No adverse reaction sv 17:56 Drug: Marcaine (0.5 %) 5 ml {Note: given by PA. Darius} Volume: 10 ml; Route: aj1 Infiltration; 17:57 Drug: Lidocaine (1 %) 5 ml {Note: given by ORA Mccoy.} Volume: 5 ml; Route: aj1 Infiltration; Disposition: 06/24/18 18:39 Discharged to Home. Impression: Laceration without foreign body of finger without damage to nail - Right Index and Middle Fingers. - Condition is Stable. - Discharge Instructions: Laceration Care, Adult. - Medication Reconciliation Form, Thank You Letter, Antibiotic Education, Prescription Opioid Use form. - Follow up: Private Physician; When: 7 - 10 days; Reason: Staple/Suture removal. - Problem is new. - Symptoms have improved. Addendum: 07/03/2018 21:06 Co-signature as Attending Physician, Aidan Escoto MD. r n Signatures: Molly Lizarraga RN RN aj1 Radha Alex RN RN sv Nieto, Roman, MD MD rn Page, Corey, PA PA cp Corrections: (The following items were deleted from the chart) 06/24 19:09 18:39 06/24/2018 18:39 Discharged to Home. Impression: Laceration without foreign body aj1 of finger without damage to nail - Right Index and Middle Fingers. Condition is Stable. Forms are Medication Reconciliation Form, Thank You Letter, Antibiotic Education, Prescription Opioid Use. Follow up: Private Physician; When: 7 - 10 days; Reason: Staple/Suture removal. Problem is new. Symptoms have improved. cp
== END 2018-06-24 19:09 | disposition home or self-care (01) ==
LOC: ER 16:25
PROC: 0JQJ0ZZ Repair Right Hand Subcutaneous Tissue and Fascia, Open Approach (ICD-10-PCS; principal; 2018-06-24)
DX: S61.210A Laceration without foreign body of right index finger without damage to nail, initial encounter (principal); S61.212A Laceration without foreign body of right middle finger without damage to nail, initial encounter; W26.8XXA Contact with other sharp object(s), not elsewhere classified, initial encounter; Y93.89 Activity, other specified; Y92.69 Other specified industrial and construction area as the place of occurrence of the external cause; Z23 Encounter for immunization; G89.29 Other chronic pain; E78.5 Hyperlipidemia, unspecified
CPT/HCPCS: 90714; 99284

== ENCOUNTER 2019-01-04 10:41 | Emergency (ER) | payer OTHER, SELFPAY ==
--- OUTSIDE RECORDS SUMMARY | 2019-01-04 10:48 | XMS REPORT ---
[...] End Status Dosage System Date Date Gabapentin [facility] 39429203816 300 MG Orally Active 1 capsule Three times a day Pantoprazole [facility] 27882336556 40 MG Orally Active 1 tablet Sodium Once a day Borage Oil [facility] 87734302192 1000 MG Orally Active not defined Decara [facility] 84419166900 91597 UNIT Active 1 capsule Orally weekly Fish Oil [facility] 57931266778 1000 MG Orally Active 1 capsule Once a day Butalbital-APAP- [facility] 28447252701 50-300-40 MG Active 1 capsule Caffeine Orally prn as needed Chantix [facility] 71010636995 1 MG Orally Active 1 tablet Twice a day Flax Seed Oil [facility] 69102301525 1000 MG Orally Active not defined Benzonatate [facility] 72024750411 200 MG Orally Active [address] [facility] 16549358158 10 MG Orally Active 1 tablet Once a day Aspirin 81 NDC 74564971603 81 MG Orally Active 1 tablet Once a day Butalbital-Aceta [facility] 69365977862 50-325 MG March Active 1 tablet minophen Orally every 6 2017 03, as needed hrs prn [address] [facility] 69328840670 40 MG Orally Active 1 tablet Calcium Once a day in evening Zofran [facility] 78420424545 4 MG Orally BID Active 1 tab prn nausea Aleve [facility] 92693702833 220 MG Orally Active 1 tablet every 12 hrs with food or milk as needed Results No Known Results Summary Purpose eClinicalWorks Submission
--- OUTSIDE RECORDS SUMMARY | 2019-01-04 10:48 | XMS REPORT | Clinical Summary ---
:1980 Author Organization [facility] Address [address] [place] [address] Care Team Providers Name Role Phone Sarah Meadows [facility] Primary Care Provider Allergies No Known Allergies Medications Medication Sig Dispensed Refills Start Date End Date Status pantoprazole Take 40 mg by 0 Discontinued (PROTONIX) 40 MG mouth daily. 8 tablet varenicline Take 1 mg by 0 Discontinued (CHANTIX) 1 mg mouth 2 (two) 8 tablet times daily Give with meals and with a full glass of water. . aspirin 81 MG EC Take 81 mg by 0 Discontinued tablet mouth daily. 8 gabapentin Take 300 mg by 0 Discontinued (NEURONTIN) 300 MG mouth 3 (three) 8 capsule times daily. butalbital-acetamino Take 1 tablet 0 Discontinued phen-caffeine by mouth every 8 (FIORICET, ESGIC) 6 (six) hours 50-325-40 mg per as needed for tablet Headaches. ondansetron (ZOFRAN) Take by mouth 0 Discontinued 8 MG tablet every 8 (eight) 8 hours as needed for Nausea. benzonatate Take 100 mg by 0 Discontinued (TESSALON) 100 MG mouth 3 (three) 8 capsule times daily as needed for Cough. atorvastatin Take 40 mg by 0 Discontinued (LIPITOR) 40 MG mouth daily. 8 tablet omega-3 fatty Take 2 g by 0 Discontinued acids-fish oil mouth 2 (two) 8 340-1,000 mg Cap per times daily. capsule naproxen Take 220 mg by 0 Discontinued (ALEVE,ANAPROX,MIDOL mouth 2 (two) 8 ) 220 MG tablet times daily with breakfast and dinner. ergocalciferol Take 50,000 0 Discontinued (VITAMIN D2) 50,000 Units by mouth 8 unit capsule once a week. loratadine Take 10 mg by 0 Discontinued (CLARITIN) 10 mg mouth daily. 8 tablet Active Problems Not on file Encounters Date Type Specialty Care Team Description 03/09/2018 Anesthesia Event Gastroenterology ItaloYair MD 03/03/2018 Outside Orders Rick Alcala Abdominal pain, MD P[place] generalized (Primary Dx) after 01/03/2018 Social History Tobacco Use Types Packs/Day Years Used Date Current Every Day Smoker 0.5 Smokeless Tobacco: Never Used Tobacco Cessation: Ready to Quit: Yes Alcohol Use Drinks/Week oz/Week Comments Yes 6 pack a month Sex Assigned at Date Recorded Not on file Job Start Date Occupation Industry Not on file Not on file Not on file Travel History Travel Start Travel End No recent travel history available. Last Filed Vital Signs Vital Sign Reading [...] Not on file Results Not on fileafter 01/03/2018 Insurance Payer Benefit Plan / Group Subscriber ID Type Phone Address [employer] [facility] x[facility] BRITTANY [employer] xxxxxxxxxxx
--- OUTSIDE RECORDS SUMMARY | 2019-01-04 10:48 | XMS REPORT ---
[...] End Status Dosage System Date Date Gabapentin [facility] 84501034725 300 MG Orally Active 1 capsule Three times a day Pantoprazole [facility] 25480413628 40 MG Orally Active 1 tablet Sodium Once a day Borage Oil [facility] 73136985246 1000 MG Orally Active not defined Decara [facility] 56347366478 78171 UNIT Active 1 capsule Orally weekly Fish Oil [facility] 08301744603 1000 MG Orally Active 1 capsule Once a day Butalbital-APAP- [facility] 45439509008 50-300-40 MG Active 1 capsule Caffeine Orally prn as needed Chantix [facility] 54785142270 1 MG Orally Active 1 tablet Twice a day Flax Seed Oil [facility] 73429473026 1000 MG Orally Active not defined Benzonatate [facility] 99907849917 200 MG Orally Active 1 capsule prn Loratadine [facility] 83383364180 10 MG Orally Active 1 tablet Once a day Aspirin 81 ND 96622377148 81 MG Orally Active 1 tablet Once a day Butalbital-Aceta [facility] 70375221706 50-325 MG March Active 1 tablet minophen Orally every 6 2017, as needed hrs prn 2017 Migraine Atorvastatin [facility] 72866067104 40 MG Orally Active 1 tablet Calcium Once a day in evening Zofran [facility] 54470964325 4 MG Orally BID Active 1 tab prn nausea Aleve [facility] 47381276985 220 MG Orally Active 1 tablet every 12 hrs with food or milk as needed Results No Known Results Summary Purpose eClinicalWorks Submission
--- OUTSIDE RECORDS SUMMARY | 2019-01-04 10:48 | XMS REPORT ---
:1980 Author Organization [employer] Care Team Providers Name Role Phone Sirisha Meadows Provider Role Unavailable Allergies No Known Allergies Problems Problem Type Condition Code Onset Dates Condition Status Problem Cigarette nicotine dependence F17.210 Active without complication Problem Gastroesophageal reflux disease K21.9 Active without esophagitis Problem Migraine with aura and without G43.109 Active status migrainosus, not intractable Problem Family history of hemochromatosis Z83.49 Active Problem Seasonal allergic rhinitis due to J30.1 Active pollen Problem Mixed dyslipidemia E78.2 Active Problem Anxiety F41.9 Active Problem Environmental allergies Z91.09 Active Problem 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
--- OUTSIDE RECORDS SUMMARY | 2019-01-04 10:48 | XMS REPORT ---
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 Problem Seasonal allergic rhinitis due to J30.1 Active pollen Problem Mixed hyperlipidemia E78.2 Active Problem Migraine with aura and without G43.109 Active status migrainosus, not intractable Problem Environmental allergies Z91.09 Active Problem Gastroesophageal reflux disease K21.9 Active without esophagitis Assessment Smoking trying to quit Z72.0 Active Assessment Seasonal allergic rhinitis due to J30.1 Active pollen Assessment Migraine with aura and without G43.109 Active status migrainosus, not intractable Medications Medication Code Code Instructions Start End Status Dosage System Date Date Magnesium Oxide ND 13960316152 400 MG Orally Jul 22, Nov 19, Active 1 tablet Once a day 2017 2017 as needed Pantoprazole ND 48423918464 40 MG Orally Active 1 tablet Sodium Once a day Aspirin 81 ND 44970947001 81 MG Orally Active 1 tablet Once a day Loratadine ND 52176773996 10 MG Orally Active 1 tablet Once a day Borage Oil [facility] 28367653500 1000 MG Orally Active not defined Zofran ND 81340813628 4MG Active TAKE 1 TABLET BY MOUTH TWICE DAILY NEEDED FOR NAUSEA Fish Oil ND 37849637014 1000 MG Orally Active 1 capsule Once a day Aleve ND 28478474209 220 MG Orally Active 1 tablet every 12 hrs with food or milk as needed ProAir HFA ND 87460361127 108 (90 Base) Jul 22, Active 2 puffs as MCG/ACT 2018 needed Inhalation every 6 hrs Butalbital-APAP ND 91553655223 50-300-40 MG Inactive 1 capsule -Caffeine Orally prn as needed Chantix [facility] 65910945288 1 MG Orally Active 1 tablet Twice a day Gabapentin [facility] 55880825641 300 MG Active 1 capsule Three times a day Orally 30 days Decara [facility] 09458306793 53911 UNIT Active 1 capsule Orally weekly Flax Seed Oil [facility] 49519890088 1000 MG Orally Active not defined Atorvastatin [facility] 59848101571 40 MG Orally Active 1 tablet Calcium Once a day in evening Butalbital-Acet [facility] 28142573673 50-325MG Orally Active 1 tablet aminophen every 6 hrs prn as needed Migraine Flonase [facility] 77809748446 50 MCG/ACT Jul 22, Active 1 spray in Nasally Once a 2018 each day nostril Results No Known Results Summary Purpose eClinicalWorks Submission
--- OUTSIDE RECORDS SUMMARY | 2019-01-04 10:48 | XMS REPORT ---
:1980 [facility] [place] [address] [place] [id number] Care Team Providers Name Role Phone Unavailable Unavailable Unavailable Problems This patient has no known problems. Allergies, Adverse Reactions, Alerts This patient has no known allergies or adverse reactions. Medications This patient has no known medications. Results Test Description Test Time Test Comments Text Results Atomic Results Result Comments CT ABDOMEN/PELVIS WITH 2017-04-16 [id number] 15:41:00 [place], [place] [id number] IMAGING REPORTPatient Name: Odalys PHILIPte of Service: [id number]: 35 Sex: M Order #: [id number] Room: ERSDOB: 1980 X-Ray Number: [id number] Record Number: [id number] Hospital Number: [id number] Physician: ESTELA TELLEZ TANOrdering Physician: RUPERTO KC [...] Merlos 2017-04-16 15:39:04 CT THORAX W/CONT 2017-04-16 [id number] 15:39:00 [place], [place] [id number] IMAGING REPORTPatient Name: Dharmesh PHILIP of Service: [id number]: 36 Sex: M Order #: [id number] [facility] 1980 [facility] Number: [id number] Record Number: [id number] Hospital Number: [id number] Physician: ESTELA TELLEZ TANOrdering Physician: RUPERTO KC [...]
--- NOTE | 2019-01-04 13:54 | RAD REPORT ---
EXAM DESCRIPTION: RAD - Chest Single View - 01/04/2019 1:49 pm CLINICAL HISTORY: COUGH Chest pain. COMPARISON: No comparisons FINDINGS: Portable technique limits examination quality. The lungs are grossly clear. The heart is normal in size. No displaced fractures. IMPRESSION: No acute intrathoracic process suspected.
[2019-01-04] MEDS ORDERED: KETOROLAC 30 MG/ML INJ ONE (14:14)
[2019-01-04] MEDS ORDERED: ONDANSETRON 4 MG/2 ML VIAL ONE (14:23)
[2019-01-04 14:45] LABS: Absolute Lymphocytes (CBC) 3.5 K/uL (0.7-4.9); Absolute Monocytes 0.6 K/uL (0.1-1.3); Absolute Neutrophil 4.2 K/uL (1.8-8.0); Basophils % 0.4 % (0-1.3); Eosinophils % 1.1 % (0-4.4); Hematocrit 43.3 % (39.6-49.0); Lymphocytes % 41.8 % (15.3-44.8); MPV 7.1 fL (7.6-11.3); Monocytes % 6.6 % (3.3-12.3); RBC Red Blood Cell Count 4.72 M/uL (4.33-5.43)
[2019-01-04 14:47] LABS: Protime INR 0.94
[2019-01-04 14:57] LABS: Albumin 3.8 g/dL (3.4-5.0); Bilirubin Direct 0.2 mg/dL (0-0.2); Bilirubin Total 0.3 mg/dL (0.2-1.0); Potassium 3.9 mmol/L (3.5-5.1); Protein, Total 7.6 g/dL (6.4-8.2)
--- NOTE | 2019-01-04 16:26 | RAD REPORT ---
EXAM DESCRIPTION: CT - Abdomen Pelvis W Contrast - 01/04/2019 4:08 pm CLINICAL HISTORY: Abdominal pain. COMPARISON: January 2018 TECHNIQUE: Computed axial tomography of the abdomen and pelvis was obtained. 100 cc Isovue-300 is ad ministered intravenously. Oral contrast was given. All CT scans are performed using dose optimization technique as appropriate and may include automated exposure control or mA/KV adjustment according to patient size. FINDINGS: The liver, spleen, pancreas, adrenals and kidneys appear unremarkable. The appendix is normal caliber. There is no evidence of diverticulitis Spondylosis involves L5 IMPRESSION: No acute abnormality displayed
--- NOTE | 2019-01-04 16:53 | ER ---
Nurse's Notes 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 Transition of care: patient was not received from another setting of care. Onset of symptoms was January 04, 2019. Risk Assessment: Do you want to hurt yourself or someone else? Patient reports no desire to harm self or others. Initial Sepsis Screen: Does the patient meet any 2 criteria? RR > 20 per min. Does the patient have a suspected source of infection? No. Patient's initial sepsis screen is negative. Care prior to arrival: None. 10:50 Method Of Arrival: Ambulatory sg 10:50 Acuity: HEATHER 3 sg Triage Assessment: 17:09 General: Appears uncomfortable, well groomed, well developed, well nourished. tl3 Respiratory:. Respiratory: Reports no resp s/s. Historical: - Allergies: 10:53 No Known Allergies; sg - Home Meds: 17:11 atorvastatin 20 mg Oral tab 1 tab once daily [Active]; gabapentin 300 mg Oral cap 3 tl3 times per day [Active]; pantoprazole 40 mg Oral chew 1 tab once daily [Active]; Zofran (as hydrochloride) 4 mg Oral tab [Active]; - PMHx: 10:53 "stomach issues"; Chronic pain; Hyperlipidemia; sg - PSHx: 10:53 wisdom teeth; sg - Immunization history:: Adult Immunizations up to date. - Social history:: Smoking status: Patient uses tobacco products. - Ebola Screening: : Patient negative for fever greater than or equal to 101.5 degrees Fahrenheit, and additional compatible Ebola Virus Disease symptoms Patient denies exposure to infectious person Patient denies travel to an Ebola-affected area in the 21 days before illness onset No symptoms or risks identified at this time. Screenin:46 Abuse screen: Denies threats or abuse. Nutritional screening: No deficits noted. tl3 Tuberculosis screening: Fall Risk None identified. Assessment: 12:46 General: Appears distressed, uncomfortable, well groomed, well developed, well tl3 nourished, Behavior is calm, cooperative, appropriate for age. Pain: Complains of pain in chest and abdomen Pain currently is 8 out of 10 on a pain scale. Neuro: No deficits noted. Level of Consciousness is awake, alert, obeys commands, Oriented to person, place, time, situation, Appropriate for age. Cardiovascular: Heart tones S1 S2 present Patient's skin is warm and dry. Rhythm is regular. Respiratory: Airway is patent Respiratory effort is even, unlabored, Respiratory pattern is regular, symmetrical, Breath sounds are clear bilaterally. GI: No signs and/or symptoms were reported involving the gastrointestinal system. : No signs and/or symptoms were reported regarding the genitourinary system. 13:39 Reassessment: No changes from previously documented assessment. Patient and/or family tl3 updated on plan of care and expected duration. Pain level reassessed. Patient is alert, oriented x 3, equal unlabored respirations, skin warm/dry/pink. 14:08 Reassessment: Patient appears in no apparent distress at this time. No changes from tl3 previously documented assessment. Patient and/or family updated on plan of care and expected duration. Pain level reassessed. Patient is alert, oriented x 3, equal unlabored respirations, skin warm/dry/pink. family at bedside, no needs at this time. 15:19 Reassessment: Patient appears in no apparent distress at this time. No changes from tl3 previously documented assessment. Patient and/or family updated on plan of care and expected duration. Pain level reassessed. Patient is alert, oriented x 3, equal unlabored respirations, skin warm/dry/pink. 17:06 Reassessment: Patient appears in no apparent distress at this time. No changes from tl3 previously documented assessment. Patient and/or family updated on plan of care and expected duration. Pain level reassessed. Patient is alert, oriented x 3, equal unlabored respirations, skin warm/dry/pink. pt being discharged. Vital Signs: 10:53 BP 132 / 92; Pulse 76; Resp 19; Temp 97.6; Pulse Ox 97% on R/A; Weight 113.4 kg; Height sg 6 ft. 0 in. (182.88 cm); Pain 8/10; 12:46 BP 125 / 95; Pulse 68; Resp 18; Pulse Ox 95% on R/A; tl3 13:39 BP 124 / 86; Pulse 66; Resp 18; Pulse Ox 97% ; tl3 14:08 BP 132 / 90; Pulse 60; Resp 18; Pulse Ox 98% on R/A; tl3 15:19 BP 120 / 83; Pulse 66; Resp 18; Pulse Ox 95% on R/A; tl3 17:06 BP 120 / 83; Pulse 67; Resp 18; Pulse Ox 95% on R/A; tl3 10:53 Body Mass Index 33.91 (113.40 kg, 182.88 cm) sg ED Course: 10:44 Patient arrived in ED. as 10:44 Sarah Meadows is Private Physician. as 10:52 Triage completed. sg 10:52 Arm band placed on. sg 11:04 EKG done, by senior maintenance technician. reviewed by Aidan Escoto MD. sg 12:35 Verenice Rojas, RN is Primary Nurse. tl3 12:39 Maximilian Padilla PA is PHCP. cp 12:39 Aidan Escoto MD is Attending Physician. cp 12:46 Patient has correct armband on for positive identification. Placed in gown. Bed in low tl3 position. Call light in reach. Side rails up X2. Adult w/ patient. groundwater monitoring technician on. Pulse ox on. NIBP on. Door closed. Warm blanket given. 12:46 No provider procedures requiring assistance completed. tl3 13:48 X-ray completed. Portable x-ray completed in exam room. Patient tolerated procedure sw well. 13:52 Inserted saline lock: 20 gauge in right antecubital area, using aseptic technique. lt1 13:53 Initial lab(s) drawn, by me, sent to lab. lt1 13:54 XRAY Chest (1 view) In Process Unspecified. EDMS 16:00 Inserted saline lock: 22 gauge in left antecubital area, using aseptic technique. ca1 ,using aseptic technique. by CTscan tech. 16:09 CT Abd/Pelvis - W/Contrast In Process Unspecified. EDMS 17:06 IV discontinued, intact, bleeding controlled, No redness/swelling at site. Pressure tl3 dressing applied, RAC and LAC. Administered Medications: 14:07 Drug: TORadol 30 mg Route: IVP; Infused Over: 1 mins; Site: left antecubital; tl3 14:19 Follow up: Response: No adverse reaction tl3 14:18 Drug: Zofran 4 mg Route: IVP; Infused Over: 2 mins; Site: right antecubital; tl3 17:08 Follow up: Response: No adverse reaction tl3 Outcome: 16:53 Discharge ordered by . melany 17:06 Discharged to home ambulatory. tl3 17:06 Condition: stable 17:06 Discharge instructions given to patient, family, Instructed on discharge instructions, follow up and referral plans. medication usage, Demonstrated understanding of instructions, follow-up care, medications, Prescriptions given X 2. 17:12 Patient left the ED. tl3 Signatures: Dispatcher [employer] EDMS Kyle Garcia RN RN sg Martinez, Amelia as Warren, Shannon sw Page, Corey, Verenice Verduzco cp, RN RN tl3 Sushila Witt RN RN ca1 Tran, Leah lt1
--- NOTE | 2019-01-04 16:53 | EDPHYS ---
Physician Documentation [facility] Name: Diogo Holden Age: 38 yrs Sex: Male : 1980 Arrival Date: 01/04/2019 Time: 10:44 Bed 23 Private MD: Sarah Meadows ED Physician Aidan Escoto HPI: 01/04 13:05 This 38 yrs old Male presents to ER via Ambulatory with complaints of cp Shortness Of Breath, Chest Pain, Abdominal Pain. 13:05 The patient has shortness of breath with light activity. cp 13:05 Onset: The symptoms/episode began/occurred gradually. Duration: The symptoms are cp intermittent. The patient's shortness of breath is aggravated by exertion. Associated signs and symptoms: Pertinent positives: non-productive cough, left lower rib and left upper abdomen pain, Pertinent negatives: diaphoresis, dizziness, fever, vomiting. Severity of symptoms: in the emergency department the symptoms are unchanged despite home interventions. Historical: - Allergies: 10:53 No Known Allergies; sg - Home Meds: 17:11 atorvastatin 20 mg Oral tab 1 tab once daily [Active]; gabapentin 300 mg Oral cap 3 tl3 times per day [Active]; pantoprazole 40 mg Oral chew 1 tab once daily [Active]; Zofran (as hydrochloride) 4 mg Oral tab [Active]; - PMHx: 10:53 "stomach issues"; Chronic pain; Hyperlipidemia; sg - PSHx: 10:53 wisdom teeth; sg - Immunization history:: Adult Immunizations up to date. - Social history:: Smoking status: Patient uses tobacco products. - Ebola Screening: : Patient negative for fever greater than or equal to 101.5 degrees Fahrenheit, and additional compatible Ebola Virus Disease symptoms Patient denies exposure to infectious person Patient denies travel to an Ebola-affected area in the 21 days before illness onset No symptoms or risks identified at this time. ROS: 13:10 Constitutional: Negative for body aches, chills, fever, poor PO intake. cp 13:10 Eyes: Negative for injury, pain, redness, and discharge. cp 13:10 ENT: Negative for drainage from ear(s), ear pain, sore throat, difficulty swallowing, difficulty handling secretions. 13:10 Neck: Negative for pain with movement, pain at rest, stiffness, tenderness. 13:10 Cardiovascular: Positive for chest pain, of the left lower rib area, Negative for edema, palpitations. 13:10 Respiratory: Positive for shortness of breath, Negative for cough, wheezing. 13:10 Abdomen/GI: Positive for abdominal pain, of the epigastric area and left upper quadrant, Negative for vomiting, diarrhea, constipation, abdominal distension, anorexia, dysphagia, black/tarry stool, rectal bleeding. 13:10 Back: Negative for injury or acute deformity, decreased range of motion, radiated pain. 13:10 : Negative for urinary symptoms, burning with urination, difficulty urinating, testicular pain 13:10 Skin: Negative for cellulitis, rash. 13:10 Neuro: Negative for altered mental status, dizziness, headache, numbness, weakness. 13:10 All other systems are negative. Exam: 13:15 Constitutional: The patient appears in no acute distress, alert, awake, cp non-diaphoretic, non-toxic, well developed, well nourished. 13:15 Head/Face: Normocephalic, atraumatic. Eyes: Pupils equal round and reactive to light, cp extra-ocular motions intact. Lids and lashes normal. Conjunctiva and sclera are non-icteric and not injected. Cornea within normal limits. Periorbital areas with no swelling, redness, or edema. ENT: Nares patent. No nasal discharge, no septal abnormalities noted. Tympanic membranes are normal and external auditory canals are clear. Oropharynx with no redness, swelling, or masses, exudates, or evidence of obstruction, uvula midline. Mucous membranes moist. Neck: Trachea midline, no thyromegaly or masses palpated, and no cervical lymphadenopathy. Supple, full range of motion without nuchal rigidity, or vertebral point tenderness. No Meningismus. 13:15 Chest/axilla: Inspection: normal, Palpation: crepitus, is not appreciated, tenderness, that is moderate, of the left lower lateral rib area, that partially reproduces the patient's complaints. 13:15 Cardiovascular: Rate: normal, Rhythm: regular, Pulses: Pulses are 2+ in right radial artery and left radial artery. Heart sounds: murmur, not appreciated, rub, not appreciated, gallop, not appreciated, Edema: is not appreciated, JVD: is not appreciated. 13:15 Respiratory: the patient does not display signs of respiratory distress, Respirations: normal, no use of accessory muscles, no retractions, no splinting, no tachypnea, labored breathing, is not present, Breath sounds: are clear throughout, no decreased breath sounds, no stridor, no wheezing. 13:15 Abdomen/GI: Inspection: abdomen appears normal, Bowel sounds: active, all quadrants, Palpation: soft, in all quadrants, moderate abdominal tenderness, in the epigastric area and left upper quadrant, rebound tenderness, is not appreciated, voluntary guarding, is not appreciated, involuntary guarding, is not appreciated. 13:15 Back: ROM is normal. 13:15 Musculoskeletal/extremity: Exam is negative for decreased range of motion, deformity, injury. 13:15 Skin: cellulitis, is not appreciated, no rash present. 13:15 Neuro: Orientation: to person, place \\T\\ time. Mentation: is normal, Cerebellar function: is grossly normal, Motor: moves all fours, strength is normal, Sensation: is normal. Vital Signs: 10:53 BP 132 / 92; Pulse 76; Resp 19; Temp 97.6; Pulse Ox 97% on R/A; Weight 113.4 kg; Height sg 6 ft. 0 in. (182.88 cm); Pain 8/10; 12:46 BP 125 / 95; Pulse 68; Resp 18; Pulse Ox 95% on R/A; tl3 13:39 BP 124 / 86; Pulse 66; Resp 18; Pulse Ox 97% ; tl3 14:08 BP 132 / 90; Pulse 60; Resp 18; Pulse Ox 98% on R/A; tl3 15:19 BP 120 / 83; Pulse 66; Resp 18; Pulse Ox 95% on R/A; tl3 17:06 BP 120 / 83; Pulse 67; Resp 18; Pulse Ox 95% on R/A; tl3 10:53 Body Mass Index 33.91 (113.40 kg, 182.88 cm) sg MDM: 12:39 Patient medically screened. cp 14:15 Differential diagnosis: Bronchitis CHF exacerbation, Chronic Obstructive Pulmonary cp Disease pneumonia, Pneumothorax pulmonary edema, Unstable Angina. 16:52 Data reviewed: vital signs, nurses notes, lab test result(s), EKG, radiologic studies, cp plain films. 16:52 Test interpretation: by ED physician or midlevel provider: ECG, plain radiologic cp studies. Counseling: I had a detailed discussion with the patient and/or guardian regarding: the historical points, exam findings, and any diagnostic results supporting the discharge/admit diagnosis, lab results, radiology results, to return to the emergency department if symptoms worsen or persist or if there are any questions or concerns that arise at home. Response to treatment: the patient's symptoms have markedly improved after treatment, VSS. Pain improved with meds, and as a result, I will discharge patient. 01/04 13:16 Order name: Basic Metabolic Panel; Complete Time: 15:07 cp / 15:07 Interpretation: Normal except: CL 109; GFR 74. cp 01/04 13:16 Order name: CBC with Diff; Complete Time: 15:20 cp 01/04 15:20 Interpretation: Normal except: MPV 7.1. cp / 13:16 Order name: Creatinine for Radiology; Complete Time: 15:07 cp 01/04 13:16 Order name: Hepatic Function; Complete Time: 15:07 cp /04 16:45 Interpretation: Normal except: GLOB 3.8; A/G 1.0. cp 01/04 13:16 Order name: Lipase; Complete Time: 15:07 cp 01/04 13:16 Order name: PT-INR; Complete Time: 15:07 cp 01/04 13:02 Order name: EKG Electrocardiogram; Complete Time: 14:08 EDMS 01/04 13:16 Order name: XRAY Chest (1 view); Complete Time: 15:07 cp 01/04 13:16 Order name: IV Saline Lock; Complete Time: 14:01 cp 01/04 13:16 Order name: Labs collected and sent; Complete Time: 14:01 cp 01/04 14:00 Order name: CT Abd/Pelvis - W/Contrast; Complete Time: 16:44 cp Administered Medications: 14:07 Drug: TORadol 30 mg Route: IVP; Infused Over: 1 mins; Site: left antecubital; tl3 14:19 Follow up: Response: No adverse reaction tl3 14:18 Drug: Zofran 4 mg Route: IVP; Infused Over: 2 mins; Site: right antecubital; tl3 17:08 Follow up: Response: No adverse reaction tl3 Disposition: 18:13 Co-signature as Attending Physician, Aidan Escoto MD. rn Disposition: 01/04/19 16:53 Discharged to Home. Impression: Intercostal pain - Left lower ribs, Upper abdominal pain, unspecified - Left. - Condition is Stable. - Discharge Instructions: Gastroesophageal Reflux Disease, Adult, Musculoskeletal Pain. - Prescriptions for Cyclobenzaprine 10 mg Oral Tablet - take 1 tablet by ORAL route every 8 hours As needed; 20 tablet. Tramadol 50 mg Oral Tablet - take 1 tablet by ORAL route every 8 hours as needed. no driving while taking medication; 15 tablet. - Medication Reconciliation Form, Thank You Letter, Antibiotic Education, Prescription Opioid Use form. - Follow up: Private Physician; When: 2 - 3 days; Reason: Recheck today's complaints. - Problem is new. - Symptoms have improved. Signatures: Dispatcher [employer] EDMS Kyle Garcia RN RN sg Aidan Escoto MD MD rn Page, Corey, PA PA cp Lowrey, Tammy RN RN tl3 Corrections: (The following items were deleted from the chart) 17:12 16:53 01/04/2019 16:53 Discharged to Home. Impression: Intercostal pain - Left lower tl3 ribs; Upper abdominal pain, unspecified - Left. Condition is Stable. Forms are Medication Reconciliation Form, Thank You Letter, Antibiotic Education, Prescription Opioid Use. Follow up: Private Physician; When: 2 - 3 days; Reason: Recheck today's complaints. Problem is new. Symptoms have improved. cp
--- NOTE | 2019-01-04 17:01 | EKG ---
Test Date: 2018-12-04 Test Time: 11:01:54 Worm Raiser: [place] MEASUREMENT RESULTS: Intervals: Rate: 75 CT: 146 QRSD: 104 QT: 366 QTc: 408 [place]: P: 36 CT: 146 QRS: 41 T: 34 INTERPRETIVE STATEMENTS: Normal sinus rhythm Normal ECG No previous ECG available for comparison Electronically Signed On 01-04-19 17:01:06 SALES ACCOUNT ASSOCIATE by Scooby Zee
== END 2019-01-04 17:12 | disposition home or self-care (01) ==
LOC: ER 10:41
DX: R07.82 Intercostal pain (principal); R10.12 Left upper quadrant pain; E78.5 Hyperlipidemia, unspecified; Z72.0 Tobacco use
CPT/HCPCS: 36415; 71045; 74177; 80048; 80076; 83690; 85025; 85610; 93005; 99285; J2405; Q9967

== ENCOUNTER 2020-01-27 09:02 | Emergency (ER) | payer OTHER ==
--- OUTSIDE RECORDS SUMMARY | 2020-01-27 09:05 | XMS REPORT ---
:1980 Author Organization [employer] Care Team Providers Name Role Phone Sarah Meadows Provider Role Unavailable Allergies, Adverse Reactions, Alerts Substance Reaction Event Type mucomyst Info Not Available Non Drug Allergy Problems Problem Type Condition Code Onset Dates Condition Status Problem Migraine with aura and without G43.109 Active status migrainosus, not intractable Problem Environmental allergies Z91.09 Active Problem Gastroesophageal reflux disease K21.9 Active without esophagitis Problem Mixed dyslipidemia E78.2 Active Assessment Spondylosis of lumbar spine M47.816 Active Problem Family history of hemochromatosis Z83.49 Active Assessment Vitamin D deficiency E55.9 Active Assessment Anxiety F41.9 Active Problem Mixed hyperlipidemia E78.2 Active Problem Vitamin D deficiency E55.9 Active Problem Anxiety F41.9 Active Problem Seasonal allergic rhinitis due to J30.1 Active pollen Problem 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 Problem Pain in right foot M79.671 Active Assessment Cigarette nicotine dependence F17.210 Active without complication Assessment Gastroesophageal reflux disease K21.9 Active without esophagitis Problem 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 Active Problem Spondylosis of lumbar spine M47.816 Active Problem Unspecified thoracic, thoracolumbar M51.9 Active and lumbosacral intervertebral disc disorder Problem Cyclical vomiting with nausea, G43.A0 Active intractability of vomiting not specified Assessment Mixed hyperlipidemia E78.2 Active Problem Pain of left foot M79.672 Active Problem Cigarette nicotine dependence F17.210 Active without complication Medications Medication Code Code Instructions Start End Status Dosage System Date Date Escitalopram [facility] 10306173208 20 MG Oral Active TAKE 1 Oxalate TABLET BY MOUTH ONCE DAILY FOR 30 DAYS Flax Seed Oil ND 86348901875 1000 MG Orally Active not defined Fish Oil ND 16496647913 1000 MG Orally Active 1 capsule Once a day Ondansetron ND 21177683206 8 MG Orally Jan 06, Active 1 tablet on Once a day 2019 the tongue and allow to dissolve as needed Rosuvastatin ND 58952686924 40 MG Orally Nov 29, Active 1 tablet Calcium Once a day 2017 Decara [facility] 65304143134 42026 UNIT Active 1 capsule Orally weekly ProAir HFA [facility] 36478415579 108 (90 Base) Active 2 puffs as MCG/ACT needed Inhalation every 6 hrs Butalbital-Aceta [facility] 60221078973 50-325MG Orally Active 1 tablet as minophen every 6 hrs prn needed Migraine Atorvastatin [facility] 57557020417 40 MG Orally Active 1 tablet Calcium Once a day in evening Gabapentin [facility] 05333698922 300 MG Orally Jan 06, Active 1 capsule Three times a 2019 Zofran [facility] 19167698347 4MG Active TAKE 1 TABLET BY MOUTH TWICE DAILY NEEDED FOR NAUSEA Loratadine [facility] 56204259510 10 MG Orally Active 1 tablet Once a day Ibuprofen [facility] 46539716390 200 MG Orally Active 1 tablet Three times a with food day or milk as needed Tylenol [facility] 89117574443 325 MG Orally Active 1 tablet as every 4 hrs needed Pantoprazole [facility] 09102288070 40 MG Orally Active 1 tablet Sodium Once a day Flonase [facility] 12042044905 50 MCG/ACT Active 1 spray in Nasally Once a each day nostril Borage Oil [facility] 83775681291 1000 MG Orally Active not defined Aspirin 81 [facility] 79113957601 81 MG Orally Active 1 tablet Once a day Chantix [facility] 04103115330 1 MG Orally Active 1 tablet Twice a day Results No Known Results Summary Purpose eClinicalWorks Submission
--- OUTSIDE RECORDS SUMMARY | 2020-01-27 09:05 | XMS REPORT ---
:1980 [facility] [place] [address] [place] [address] Care Team Providers Name Role Phone Unavailable Unavailable Unavailable Problems This patient has no known problems. Allergies, Adverse Reactions, Alerts This patient has no known allergies or adverse reactions. Medications This patient has no known medications. Results Test Description Test Time Test Comments Text Results Atomic Results Result Comments CT ABDOMEN/PELVIS WITH 2017-04-16 [facility] 15:41:00 [place], [place] [id number] IMAGING REPORTPatient Name: Odalys PHILIPte of Service: [id number]: 36 Sex: M Order #: [id number] Room: ERSDOB: 1980 X-Ray Number: [id number] Record Number: [id number] Hospital Number: [id number] Physician: ESTELA TELLEZ TANOrdering Physician: RUPERTO KC [...] Merlos 2017-04-16 15:39:04 CT THORAX W/CONT 2017-04-16 [facility] 15:39:00 [place], [place] [id number] IMAGING REPORTPatient Name: Dharmesh PHILIP of Service: [id number]: 36 Sex: M Order #: [id number] [facility] 1980 X-Ray Number: [id number] Record Number: [id number] Hospital Number: [id number] Physician: ESTELA TELLEZ TANOrdering Physician: RUPERTO KC [...]
[2020-01-27] MEDS ORDERED: DICYCLOMINE HCL 10 MG CAP ONE (09:31)
[2020-01-27] MEDS ORDERED: PANTOPRAZOLE 40 MG INJ ONE (09:31)
[2020-01-27] MEDS ORDERED: NA CHLORIDE 0.9% 1,000 ML ONE (09:31)
[2020-01-27 09:42] LABS: Absolute Lymphocytes (CBC) 2.3 K/uL (0.7-4.9); Basophils % 0.5 % (0-1.3); Hematocrit 45.5 % (39.6-49.0); Lymphocytes % 21.7 % (15.3-44.8); MPV 7.4 fL (7.6-11.3); RBC Red Blood Cell Count 4.98 M/uL (4.33-5.43)
[2020-01-27 09:51] LABS: Albumin 4.3 g/dL (3.4-5.0); Bilirubin Total 0.8 mg/dL (0.2-1.0); Potassium 3.3 mmol/L (3.5-5.1); Protein, Total 8.7 g/dL (6.4-8.2)
--- NOTE | 2020-01-27 10:34 | RAD REPORT ---
EXAM DESCRIPTION: CTAbdomen Pelvis W Contrast - 01/27/2020 10:20 am CLINICAL HISTORY: Abdominal pain. ABD PAIN COMPARISON: Abdomen Pelvis W Contrast dated 01/04/2019; Abdomen Pelvis W Contrast dated 01/30/2018 TECHNIQUE: Biphasic CT imaging of the abdomen and pelvis was performed with 100 ml non-ionic IV cont rast. All CT scans are performed using dose optimization technique as appropriate and may include automated exposure control or mA/KV adjustment according to patient size. FINDINGS: The lung bases are clear. The liver, spleen, pancreas, adrenal glands and kidneys are within normal limits. No bowel obstruction, free air, free fluid or abscess. The appendix is normal. No evidence of signi ficant lymphadenopathy. No suspicious bony findings. IMPRESSION: No acute intra-abdominal or pelvic finding.
[2020-01-27 11:23] LABS: Barbiturates NEGATIVE (NEGATIVE); Benzodiazepines NEGATIVE (NEGATIVE); Cocaine POSITIVE (NEGATIVE); METHAMPHETAM POSITIVE (NEGATIVE); Methadone NEGATIVE (NEGATIVE); Opiates NEGATIVE (NEGATIVE); Phencyclidine NEGATIVE (NEGATIVE); THC Cannibis POSITIVE (NEGATIVE)
--- NOTE | 2020-01-27 11:35 | EDPHYS ---
Physician Documentation [facility] Name: Diogo Holden Age: 39 yrs Sex: Male : 1980 Arrival Date: 01/27/2020 Time: 09:03 Bed 7 Private MD: ED Physician Rony Nails HPI: 01/27 09:10 This 39 yrs old Male presents to ER via EMS with complaints of hematemesis. ps1 09:10 Patient states that he has polysubstance abuse. Took 5 MDMA pills yesterday and cocaine ps1 over the last week. States this morning was taking a shower and had nausea with gross hematemesis. Has mild epigastric pain. Symptoms have improved as blood is now streaky. Presented tachycardic and appears dehydrated. . Historical: - Allergies: 09:23 acetylcysteine; ah 09:23 Risperdal; ah - Home Meds: 09:23 gabapentin Oral [Active]; Zofran (as hydrochloride) Oral [Active]; Lexapro Oral ah [Active]; biotin oral oral [Active]; Omeprazole Oral [Active]; - PMHx: 09:23 "stomach issues"; Chronic pain; Hyperlipidemia; ah - PSHx: 09:23 None; ah - Immunization history:: Flu vaccine is not up to date. - Social history:: Patient uses street drugs, cocaine, Smoking status: . ROS: 09:10 Constitutional: Negative for fever, chills, and weight loss, Eyes: Negative for injury, ps1 pain, redness, and discharge, ENT: Negative for injury, pain, and discharge, Cardiovascular: Negative for chest pain, palpitations, and edema, Respiratory: Negative for shortness of breath, cough, wheezing, and pleuritic chest pain, MS/Extremity: Negative for injury and deformity, Skin: Negative for injury, rash, and discoloration, Neuro: Negative for headache, weakness, numbness, tingling, and seizure. 09:10 Abdomen/GI: Positive for abdominal pain, nausea and vomiting, hematemesis. Exam: 09:10 Head/Face: Normocephalic, atraumatic. Eyes: Pupils equal round and reactive to light, ps1 extra-ocular motions intact. Lids and lashes normal. Conjunctiva and sclera are non-icteric and not injected. Chest/axilla: Normal chest wall appearance and motion. Nontender with no deformity. No lesions are appreciated. 09:10 Abdomen/GI: Soft, non-tender, with normal bowel sounds. No distension or tympany. No guarding or rebound. No evidence of tenderness throughout. Skin: Warm, dry with normal turgor. Normal color with no rashes, no lesions, and no evidence of cellulitis. MS/ Extremity: Pulses equal, no cyanosis. Neurovascular intact. Full, normal range of motion. Neuro: Awake and alert, GCS 15, oriented to person, place, time, and situation. Cranial nerves II-XII grossly intact. Sensory grossly intact. Psych: Awake, alert, with orientation to person, place and time. Behavior, mood, and affect are within normal limits. 09:10 Constitutional: The patient appears alert, diaphoretic, in obvious distress, mildly distressed. 09:10 Cardiovascular: Rate: tachycardic, Rhythm: regular, Pulses: no pulse deficits are appreciated. 09:10 Respiratory: the patient does not display signs of respiratory distress, Respirations: normal, Breath sounds: are clear throughout, Respiratory rate: tachypnea Vital Signs: 09:11 Pulse 111; Resp 20; Temp 98.4; Pulse Ox 99% ; sv 09:14 BP 145 / 102; Weight 117.93 kg; Height 6 ft. 1 in. (185.42 cm); ah 09:45 BP 154 / 79; Pulse 107; Resp 16; Pulse Ox 99% ; sv 10:42 BP 171 / 110; Pulse 106; Resp 18; Pulse Ox 99% ; ah 09:14 Body Mass Index 34.30 (117.93 kg, 185.42 cm) MDM: 09:17 Patient medically screened. ps1 11:30 Differential diagnosis: Nonspecific abd pain, gastritis, pancreatitis, gastroenteritis, ps1 GI Bleed. Data reviewed: vital signs, nurses notes, lab test result(s), radiologic studies, and as a result, I will discharge patient. Counseling: I had a detailed discussion with the patient and/or guardian regarding: the historical points, exam findings, and any diagnostic results supporting the discharge/admit diagnosis, lab results, radiology results, the need for outpatient follow up, to return to the emergency department if symptoms worsen or persist or if there are any questions or concerns that arise at home. ED course: 39 y/o M with polysubstance abuse and stable GI bleed. Hgb WNL. No recurrence and vomiting is streaky blood no gross hematemesis. Protonix given. Counseled patient on rehab. Avoid NSAIDs. Home with Bentyl, Carafate, omeprazole, Zofran. Return precautions given. . 01/27 09:09 Order name: CBC with Diff; Complete Time: 09:46 ps1 01/27 09:09 Order name: CMP; Complete Time: 09:52 ps1 01/27 09:09 Order name: Type And Screen; Complete Time: 10:18 ps1 01/27 09:09 Order name: CK; Complete Time: 09:52 ps1 01/27 09:09 Order name: UDS; Complete Time: 11:30 [facility] 01/27 11:04 Order name: ABO/RH no charge; Complete Time: 11:07 EDMS 01/27 09:09 Order name: CT Abd/Pelvis - IV Contrast Only; Complete Time: 10:39 [facility] 01/27 09:09 Order name: Urine Dipstick-Ancillary (obtain specimen); Complete Time: 11:07 [facility] 01/27 11:08 Order name: Urine Dipstick--Ancillary (enter results) dh3 Administered Medications: 09:35 Drug: Bentyl 10 mg Route: PO; 10:41 Follow up: Response: No adverse reaction 09:35 Drug: ProTONIX 80 mg Route: IVP; Site: right antecubital; 10:41 Follow up: Response: No adverse reaction 09:35 Drug: NS 0.9% 1000 ml Route: IV; Rate: 1 bolus; Site: right antecubital; 11:48 Follow up: IV Status: Completed infusion; IV Intake: 1000ml Disposition: 01/27/20 11:35 Discharged to Home. Impression: GI Bleeding, Polysubstance Abuse, Dehydration. - Condition is Stable. - Discharge Instructions: Gastrointestinal Bleeding, What You Need To Know About Illegal Drug Use and Dependence, Youth. - Prescriptions for Bentyl 10 mg Oral Capsule - take 1 capsule by ORAL route every 6 hours As needed; 40 capsule. Carafate 1 gram Oral Tablet - take 1 tablet by ORAL route 4 times per day take on an empty stomach, beginning on waking and last dose at bedtime; 100 tablet. Protonix 40 mg Oral Tablet - take 1 tablet by ORAL route once daily; 30 tablet. Zofran 4 mg Oral Tablet - take 1 tablet by ORAL route every 12 hours As needed; 20 tablet. - Medication Reconciliation Form, Thank You Letter, Antibiotic Education, Prescription Opioid Use form. - Follow up: Private Physician; When: 48 Hours; Reason: Further diagnostic work-up, Recheck today's complaints, Continuance of care, Re-evaluation by your physician. Follow up: Emergency Department; When: As needed; Reason: If symptoms return, Trouble breathing, Worsening of condition. - Problem is new. - Symptoms have improved. Signatures: Dispatcher [employer] EDMS Rony Nails MD MD ps1 Abril Zee RN RN ah Corrections: (The following items were deleted from the chart) 09:14 09:10 This 39 yrs old Male presents to ER via EMS with complaints of ps1 hematemesis. ps1 11:49 11:35 01/27/2020 11:35 Discharged to Home. Impression: GI Bleeding; Polysubstance ah Abuse; Dehydration. Condition is Stable. Forms are Medication Reconciliation Form, Thank You Letter, Antibiotic Education, Prescription Opioid Use. Follow up: Private Physician; When: 48 Hours; Reason: Further diagnostic work-up, Recheck today's complaints, Continuance of care, Re-evaluation by your physician. Follow up: Emergency Department; When: As needed; Reason: If symptoms return, Trouble breathing, Worsening of condition. Problem is new. Symptoms have improved. ps1
--- NOTE | 2020-01-27 11:35 | ER ---
Nurse's Notes [facility] Name: Diogo Holden Age: 39 yrs Sex: Male : 1980 Arrival Date: 01/27/2020 Time: 09:03 Bed 7 Private MD: Diagnosis: GI Bleeding;Polysubstance Abuse;Dehydration Presentation: 01/27 09:04 Chief complaint: EMS states: Pt has vomited a few times this morning, states that he ah has done cocaine and ecstacy in the last 24 hours. There was blood on ground upon arrival, possible from nostrils. Vitals from EMS 107/65, 99%, HR 125. Coronavirus screen: The patient has NOT traveled to [place] in the past 14 days. The patient has NOT had contact with known and/or suspected case of Coronavirus. Ebola Screen: No symptoms or risks identified at this time. Initial Sepsis Screen: Does the patient meet any 2 criteria? No. Patient's initial sepsis screen is negative. Does the patient have a suspected source of infection? No. Patient's initial sepsis screen is negative. Risk Assessment: Do you want to hurt yourself or someone else? Patient reports no desire to harm self or others. Care prior to arrival: Medication(s) given: Phenergan, 12.5 mg, zofran 8 mg, IV initiated. 18 GA, in the right antecubital area. 09:04 Method Of Arrival: EMS: [facility] 09:14 Acuity: HEATHER 2 11:48 Onset of symptoms was January 27, 2020. Historical: - Allergies: 09:23 acetylcysteine; 09:23 Risperdal; - Home Meds: 09:23 gabapentin Oral [Active]; Zofran (as hydrochloride) Oral [Active]; Lexapro Oral ah [Active]; biotin oral oral [Active]; Omeprazole Oral [Active]; - PMHx: 09:23 "stomach issues"; Chronic pain; Hyperlipidemia; - PSHx: 09:23 None; - Immunization history:: Flu vaccine is not up to date. - Social history:: Patient uses street drugs, cocaine, Smoking status: . Screenin:47 Abuse screen: Denies threats or abuse. Nutritional screening: No deficits noted. Tuberculosis screening: No symptoms or risk factors identified. Fall Risk None identified. Assessment: 09:20 General: Appears uncomfortable, Behavior is calm, cooperative. Pain: Denies pain. Neuro: Level of Consciousness is awake, alert, Oriented to person, place, time, situation. Cardiovascular: Heart tones S1 S2 present Capillary refill < 3 seconds Pulses are palpable in right radial artery and left radial artery Rhythm is. Respiratory: Airway is patent Respiratory effort is even, unlabored, Respiratory pattern is regular, symmetrical, Breath sounds are clear bilaterally. GI: Abdomen is non-distended, Bowel sounds present X 4 quads. Reports vomiting, since this morning used ecstacy at midnight last night. : No signs and/or symptoms were reported regarding the genitourinary system. EENT:. Derm: Skin is intact, Skin is moist, Skin is flushed, Skin temperature is warm. Musculoskeletal: No signs and/or symptoms reported regarding the musculoskeletal system. Circulation, motion, and sensation intact. Vital Signs: 09:11 Pulse 111; Resp 20; Temp 98.4; Pulse Ox 99% ; sv 09:14 BP 145 / 102; Weight 117.93 kg; Height 6 ft. 1 in. (185.42 cm); ah 09:45 BP 154 / 79; Pulse 107; Resp 16; Pulse Ox 99% ; sv 10:42 BP 171 / 110; Pulse 106; Resp 18; Pulse Ox 99% ; ah 09:14 Body Mass Index 34.30 (117.93 kg, 185.42 cm) ED Course: 09:03 Patient arrived in ED. sv 09:03 Rony Nails MD is Attending Physician. ps1 09:03 Abril Zee, RN is Primary Nurse. 09:03 ED physician to see patient. sv 09:03 Patient placed in an exam room, on a stretcher. sv 09:13 Bed in low position. Call light in reach. Side rails up X 1. Pulse ox on. NIBP on. sv 09:16 Triage completed. 09:20 Initial lab(s) drawn, by me, sent to lab. T\\T\\S collected, blood band applied to patient. dh3 09:28 CMP Sent. dh3 09:28 CBC with Diff Sent. dh3 09:28 Type And Screen Sent. dh3 09:28 CK Sent. dh3 09:[address] Scan. sv 10:20 CT Abd/Pelvis - IV Contrast Only In Process Unspecified. EDMS 10:[address] back from [address]. sv 10:40 Maintain EMS IV. Dressing intact. Site clean \\T\\ dry. Gauge \\T\\ site: 18g R AC. Flushed right antecubital. 11:47 Arm band placed on left wrist. 11:47 No provider procedures requiring assistance completed. IV discontinued, intact, ah bleeding controlled, No redness/swelling at site. Pressure dressing applied. Administered Medications: 09:35 Drug: Bentyl 10 mg Route: PO; 10:41 Follow up: Response: No adverse reaction 09:35 Drug: ProTONIX 80 mg Route: IVP; Site: right antecubital; 10:41 Follow up: Response: No adverse reaction 09:35 Drug: NS 0.9% 1000 ml Route: IV; Rate: 1 bolus; Site: right antecubital; 11:48 Follow up: IV Status: Completed infusion; IV Intake: 1000ml ah Intake: 11:48 IV: 1000ml; Total: 1000ml. Outcome: 11:35 Discharge ordered by . ps1 11:46 Discharged to home ambulatory. 11:46 Condition: good 11:46 Discharge instructions given to patient, Instructed on discharge instructions, medication usage, Demonstrated understanding of instructions, follow-up care, medications, Prescriptions given X 4. 11:49 Patient left the ED. Signatures: Dispatcher [employer] EDMS Radha Alex RN RN Liz Odom 3 Rony Nails MD MD ps1 Abril Zee RN RN Corrections: (The following items were deleted from the chart) 09:18 09:04 Chief complaint: EMS states: Pt has been vomiting all morning, states that he has ah done cocaine and ecstacy in the last 24 hours. There was blood on ground upon arrival. Vitals from EMS 107/65, 99%, HR 125, 11:31 10:13 General: Appears uncomfortable, Behavior is calm, cooperative, [facility] 11: 10:13 Pain: Denies pain. [facility] 11: 10:13 Neuro: Level of Consciousness is awake, alert, Oriented to person, place, time, ah situation, 11: 10:13 Cardiovascular: Heart tones S1 S2 present Capillary refill < 3 seconds Pulses are ah palpable in right radial artery and left radial artery Rhythm is : Respiratory: Airway is patent Respiratory effort is even, unlabored, Respiratory ah pattern is regular, symmetrical, Breath sounds are clear bilaterally. : GI: Abdomen is non-distended, Bowel sounds present X 4 quads. Reports vomiting, since this morning used ecstacy at midnight last night : : No signs and/or symptoms were reported regarding the genitourinary system. [facility] : EENT: [facility] : Derm: Skin is intact, Skin is moist, Skin is flushed, Skin temperature is warm [facility] : Musculoskeletal: No signs and/or symptoms reported regarding the musculoskeletal system. Circulation, motion, and sensation intact.
[2020-01-27 12:04] VITALS: TEMP 98.4; O2SAT 99
[2020-01-27 12:07] VITALS: BP 171/110
[2020-01-27 12:55] LABS: Urine Blood TRACE (NEG); Urine Glucose NEGATIVE (NEG); Urine Protein 1+ (NEG); Urine Specific Gravity 1.015 (1.005-1.030)
== END 2020-01-27 11:49 | disposition home or self-care (01) ==
LOC: ER 09:02
DX: E86.0 Dehydration (principal); F19.10 Other psychoactive substance abuse, uncomplicated; E78.5 Hyperlipidemia, unspecified; G89.29 Other chronic pain; Z88.8 Allergy status to other drugs, medicaments and biological substances
CPT/HCPCS: 96361; 85025; 36415; 86900; 86850; 82550; 86901; 80307 ×8; 81003; 80053; 74177; 96374; 99284; Q9967; C9113; J7030

== ENCOUNTER 2020-09-04 13:04 | Emergency (ER) | payer OTHER, SELFPAY ==
[2020-09-04 14:34] LABS: Absolute Lymphocytes (CBC) 0.8 K/uL (0.7-4.9); Basophils % 0.2 % (0-1.3); Hematocrit 50.6 % (39.6-49.0); Lymphocytes % 9.4 % (15.3-44.8); MPV 7.3 fL (7.6-11.3); RBC Red Blood Cell Count 5.74 M/uL (4.33-5.43)
[2020-09-04] MEDS ORDERED: MORPHINE 2 MG/ML SYR ONE ×2 (14:37→17:20)
[2020-09-04] MEDS ORDERED: FAMOTIDINE 20 MG/2 ML VIAL IV ONE (14:38)
[2020-09-04] MEDS ORDERED: ONDANSETRON 4 MG/2 ML VIAL ONE (14:38)
[2020-09-04] MEDS ORDERED: NA CHLORIDE 0.9% 1,000 ML ONE ×3 (14:38→17:20)
--- NOTE | 2020-09-04 14:43 | RAD REPORT ---
EXAM DESCRIPTION: CTAbdomen Pelvis W Contrast - 09/04/2020 2:30 pm CLINICAL HISTORY: Abdominal pain. back pain;Abd pain COMPARISON: Abdomen Pelvis W Contrast dated 01/27/2020; Abdomen Pelvis W Contrast dated 01/04/2019; Abdomen Pelvis W Contrast dated 01/30/2018 TECHNIQUE: Biphasic CT imaging of the abdomen and pelvis was performed with 100 ml non-ionic IV cont rast. All CT scans are performed using dose optimization technique as appropriate and may include automated exposure control or mA/KV adjustment according to patient size. FINDINGS: The lung bases are clear. The liver demonstrates diffuse fatty infiltration. The spleen, pancreas, adrenal glands and kidneys a re within normal limits. No bowel obstruction, free air, free fluid or abscess. The appendix is normal. No evidence of signi ficant lymphadenopathy. Bilateral chronic spondylolysis at L5-S1 with minimal anterolisthesis. IMPRESSION: Mild diffuse fatty infiltration. Bilateral chronic spondylolysis with minimal anterolisthesis at L5-S1.
[2020-09-04 14:53] LABS: Alkaline Phosphatase 118 U/L (45-117); BUN Blood Urea Nitrogen 19 mg/dL (7-18); Bicarbonate 20 mmol/L (21-32); Bilirubin Total 2.4 mg/dL (0.2-1.0); Creatine Phosphokinase 753 U/L (39-308); Glucose Level 95 mg/dL (74-106); Lipase 173 U/L (73-393); Magnesium 2.4 mg/dL (1.8-2.4); Potassium 3.6 mmol/L (3.5-5.1); Sodium Level 137 mmol/L (136-145); Troponin I < 0.02 ng/mL (0.0-0.045)
[2020-09-04] MEDS ORDERED: LORazepam 2 MG/ML VIAL ONE (15:03)
[2020-09-04 15:04] LABS: Barbiturates NEGATIVE (NEGATIVE); Benzodiazepines NEGATIVE (NEGATIVE); Cocaine POSITIVE (NEGATIVE); METHAMPHETAM NEGATIVE (NEGATIVE); Methadone NEGATIVE (NEGATIVE); Opiates NEGATIVE (NEGATIVE); Phencyclidine NEGATIVE (NEGATIVE); THC Cannibis POSITIVE (NEGATIVE)
[2020-09-04 15:10] LABS: ALT/SGPT 3889 U/L (12-78); AST/SGOT 5845 U/L (15-37)
[2020-09-04] MEDS ORDERED: ASPIRIN 81 MG CHEWABLE TABLET ONE (15:12)
[2020-09-04 15:17] LABS: Urine Blood 1+ (NEG); Urine Glucose NEGATIVE (NEG); Urine Protein 2+ (NEG)
[2020-09-04 15:17] LABS: Urine Amorphous Sediment 1+ /HPF (NONE SEEN); Urine Bacteria 20-50 /HPF (NONE SEEN); Urine Culture Reflex Order REFLEXED; Urine Mucus 2+ /HPF (NONE SEEN); Urine RBC <5 /HPF (NONE SEEN)
[2020-09-04 15:47] LABS: Blood Morphology Comment NOT SEEN (NOT SEEN); Platelet Estimate DECR; White Blood Cell Scan OK (OK)
--- NOTE | 2020-09-04 15:55 | RAD REPORT ---
EXAM DESCRIPTION: US - Abdomen Exam Limited - 09/04/2020 3:45 pm CLINICAL HISTORY: epigastric pain, elevated liver enzymes COMPARISON: Abdomen Exam Complete dated 01/19/2018 FINDINGS: The gallbladder demonstrates no gallstones. No pericholecystic fluid or gallbladder wall t hickening. The common bile duct is normal measuring 3 mm. The liver demonstrates fatty infiltration. IMPRESSION: Negative gallbladder/ biliary tree findings. Fatty liver.
[2020-09-04] MEDS ORDERED: ACETYLCYSTEINE 15,000 MG in D5W 200 ML IV SCH (16:00)
--- NOTE | 2020-09-04 16:05 | EDPHYS ---
Physician Documentation [facility] Name: Diogo Holden Age: 39 yrs Sex: Male : 1980 Arrival Date: 09/04/2020 Time: 13:06 Bed 27 Private MD: Sarah Meadows ED Physician Adian Escoto HPI: 09/04 14:09 This 39 yrs old Male presents to ER via Wheelchair with complaints of Pain cp All Over. 14:10 The patient presents with pain that is acute, with no known mechanism of injury. The cp symptoms are located in the mid back area. Onset: The symptoms/episode began/occurred 1 week(s) ago. Associated signs and symptoms: Pertinent positives: abdominal pain, nausea, vomiting, Pertinent negatives: chest pain, constipation, fever, incontinence, numbness, tingling, urinary retention, weakness, active vomiting. 15:28 Patient reports taking unknown amount of tylenol 3 days ago. cp Historical: - Allergies: 13:21 acetylcysteine; ll1 13:21 Risperdal; ll1 - PMHx: 13:21 "stomach issues"; Chronic pain; Hyperlipidemia; ll1 - PSHx: 13:21 None; ll1 - Immunization history:: Flu vaccine is not up to date. - Social history:: Smoking status: Patient reports the use of cigarette tobacco products, smokes one pack cigarettes per day. ROS: 14:11 Constitutional: Positive for poor PO intake, Negative for body aches, chills, fever. cp 14:11 Cardiovascular: Negative for chest pain, edema, palpitations. 14:11 Respiratory: Negative for cough, shortness of breath, wheezing. 14:11 Abdomen/GI: Positive for abdominal pain, nausea, vomiting, Negative for diarrhea, constipation, hematemesis. 14:11 Back: Positive for pain at rest, of the mid back area. 14:11 : Negative for urinary symptoms. 14:11 Neuro: Negative for altered mental status, headache, weakness. 14:11 All other systems are negative. Exam: 14:12 Head/Face: Normocephalic, atraumatic. cp 14:12 Constitutional: The patient appears in no acute distress, alert, awake, non-diaphoretic, non-toxic, well developed, well nourished, uncomfortable. 14:12 Eyes: Periorbital structures: appear normal, Conjunctiva: normal, no exudate, no injection, Sclera: no appreciated abnormality, Lids and lashes: appear normal, bilaterally. 14:12 ENT: External ear(s): are unremarkable, Nose: is normal, Mouth: Lips: moist, Oral mucosa: moist, Posterior pharynx: Airway: no evidence of obstruction, patent. 14:12 Neck: ROM/movement: is normal, is supple, without pain, no range of motions limitations. 14:12 Chest/axilla: Inspection: normal, Palpation: is normal, no crepitus, no tenderness. 14:12 Cardiovascular: Rate: tachycardic, Rhythm: regular, Edema: is not appreciated, JVD: is not appreciated. 14:12 Respiratory: the patient does not display signs of respiratory distress, Respirations: normal, no use of accessory muscles, no retractions, labored breathing, is not present, Breath sounds: are clear throughout, no decreased breath sounds, no stridor, no wheezing. 14:12 Abdomen/GI: Inspection: abdomen appears normal, Bowel sounds: active, all quadrants, Palpation: soft, in all quadrants, moderate abdominal tenderness, in the epigastric area, rebound tenderness, is not appreciated, voluntary guarding, is elicited in the epigastric area. 14:12 Back: pain, that is severe, of the mid back area. 14:15 Neuro: Orientation: to person, place \\T\\ time. Mentation: is normal, Motor: moves all cp fours, strength is normal. 14:20 ECG was reviewed by the Attending Physician. cp 14:33 ECG was reviewed by the Attending Physician. cp Vital Signs: 13:18 BP 91 / 72; Pulse 100; Resp 20; Temp 99.4; Pulse Ox 97% ; Weight 99.79 kg; Height 6 ft. ll1 1 in. (185.42 cm); Pain 10/10; 14:03 BP 118 / 82; Pulse 100; Resp 18 S; Pulse Ox 99% on R/A; ca1 14:48 BP 132 / 75; Pulse 87; Resp 15 S; Pulse Ox 100% on R/A; ca1 15:05 BP 116 / 68; Pulse 76; Resp 20; Pulse Ox 100% on R/A; mt 17:12 BP 147 / 109; Pulse 86; Resp 15 S; Pulse Ox 98% on R/A; ca1 17:39 BP 127 / 106; Pulse 85; Resp 18 S; Pulse Ox 98% on R/A; ca1 18:00 BP 158 / 94; Pulse 81; Resp 15 S; Pulse Ox 99% on R/A; ca1 13:18 Body Mass Index 29.03 (99.79 kg, 185.42 cm) ll1 MDM: 13:48 Patient medically screened. 14:50 Differential diagnosis: Cholelithiasis chronic back pain, ruptured disc, cp Ureterolithiasis pancreatitis, cholecystitis. 15:54 Physician consultation: Klaus Godfrey MD was called at 15:54, was contacted at 15:54, regarding patient's condition, after a discussion of the case, a recommendation for transfer for higher level of care is made, patient needs evaluation by vp corporate development. 15:55 Data reviewed: vital signs, nurses notes, lab test result(s), EKG, radiologic studies, CT scan, ultrasound, I have discussed the patient's presentation/case with the attending Emergency Department Physician;. Test interpretation: by ED physician or midlevel provider: ECG. Response to treatment: the patient's symptoms have mildly improved after treatment. 16:27 Physician consultation: was contacted at 16:27, regarding regarding transfer, to [facility]. accepting physicians will be DR Mcclelland and DR Pepper, vp corporate development. 09/04 14:07 Order name: Basic Metabolic Panel 09/04 14:07 Order name: CBC with Diff 09/04 14:07 Order name: Hepatic Function; Complete Time: 15:21 09/04 16:23 Interpretation: Normal except: ALK 118; BILIT 2.4; BILID 1.0; GLOB 4.0; A/G 1.0; AST cp 5845; ALT 3889. 09/04 14:07 Order name: Lipase; Complete Time: 15:21 09/04 15:08 Interpretation: Within normal limits: LIP 173. 09/04 14:07 Order name: CPK; Complete Time: 15:21 09/04 14:54 Interpretation: Abnormal: CPK 753. 09/04 14:07 Order name: Troponin I; Complete Time: 15:21 09/04 14:55 Interpretation: Reviewed. 09/04 14:07 Order name: UDS; Complete Time: 15:07 09/04 15:08 Interpretation: Normal except: NATALIE POSITIVE; THC POSITIVE. cp 09/04 14:07 Order name: Magnesium; Complete Time: 15:21 cp 09/04 14:07 Order name: Urine Microscopic Only; Complete Time: 15:21 cp 09/04 14:08 Order name: Basic Metabolic Panel; Complete Time: 15:21 EDMS 09/04 15:08 Interpretation: Normal except: CO2 20; BUN 19; GFR 71. cp 09/04 14:08 Order name: CBC with Automated Diff; Complete Time: 15:48 EDMS 09/04 14:48 Interpretation: Normal except: RBC 5.74; HCT 50.6; MCV 88.1; PLT 115; MPV 7.3; TELLY% cp 88.7; LYM% 9.4; MN% 1.6. 09/04 14:42 Order name: CBC Smear Scan; Complete Time: 15:48 EDMS 09/04 14:43 Order name: Urine Dipstick--Ancillary (enter results); Complete Time: 15:21 bd 09/04 16:23 Interpretation: Normal except: UKET 4+; UBLD 1+; UPROT 2+. cp 09/04 15:18 Order name: Urine Culture EDMS 09/04 14:07 Order name: CT Abd/Pelvis - IV Contrast Only; Complete Time: 14:46 cp 09/04 15:10 Order name: US Abdomen Limited; Complete Time: 16:03 cp 09/04 16:03 Interpretation: Report reviewed. 09/04 15:22 Order name: Tylenol Level; Complete Time: 15:55 cp 09/04 15:55 Interpretation: Reviewed. 09/04 15:44 Order name: ETOH Level; Complete Time: 16:03 cp 09/04 15:45 Order name: LAB Add On cp 09/04 15:50 Order name: PT-INR; Complete Time: 17:11 cp 09/04 17:11 Interpretation: Abnormal. cp 09/04 15:50 Order name: Ptt, Activated; Complete Time: 17:11 cp 09/04 14:07 Order name: IV Saline Lock; Complete Time: 14:15 cp 09/04 14:07 Order name: Labs collected and sent; Complete Time: 14:15 cp 09/04 14:07 Order name: EKG; Complete Time: 14:08 cp 09/04 14:07 Order name: EKG - Nurse/Tech; Complete Time: 14:15 cp 09/04 14:07 Order name: Urine Dipstick-Ancillary (obtain specimen); Complete Time: 14:29 cp 09/04 15:10 Order name: NPO; Complete Time: 15:13 cp EC:20 Rate is 83 beats/min. Rhythm is regular. MI interval is normal. QRS interval is cp prolonged at 102 msec. QT interval is normal. T waves are Inverted in lead aVR. Interpreted by me. Reviewed by me. 14:33 Rate is 83 beats/min. Rhythm is regular. MI interval is normal. QRS interval is normal. cp QT interval is normal. T waves are Inverted in lead aVR. Interpreted by me. Reviewed by me. Administered Medications: 14:35 Drug: NS 0.9% 1000 ml Route: IV; Rate: 1 bolus; Site: right antecubital; ca1 15:32 Follow up: Response: No adverse reaction; IV Status: Completed infusion; IV Intake: ca1 1000ml 14:36 Drug: Pepcid 20 mg Route: IVP; Site: right antecubital; ca1 15:32 Follow up: Response: No adverse reaction ca1 14:38 Drug: Zofran (Ondansetron) 4 mg Route: IVP; Site: right antecubital; ca1 15:33 Follow up: Response: No adverse reaction; Nausea is decreased; Vomiting decreased ca1 14:40 Drug: morphine 2 mg {Note: rass 1.} Route: IVP; Site: right antecubital; ca1 15:33 Follow up: Response: No adverse reaction; Pain is decreased; RASS: Alert and Calm (0) ca1 14:52 Drug: Ativan 0.5 mg Route: IVP; Site: right antecubital; ca1 15:31 Follow up: Response: No adverse reaction; Marked relief of symptoms ca1 15:02 Drug: Aspirin Chewable Tablet 324 mg Route: PO; ca1 15:32 Follow up: Response: No adverse reaction ca1 15:20 Drug: NS 0.9% 1000 ml Route: IV; Rate: 1000 ml; Site: right antecubital; ca1 16:20 Follow up: Response: No adverse reaction; IV Status: Completed infusion; IV Intake: ca1 1000ml 16:09 Drug: Acetylcysteine 150 mg/kg Route: IV; Rate: calculated rate; Site: right ca1 antecubital; 17:10 Follow up: Response: No adverse reaction; IV Status: Completed infusion; IV Intake: ca1 275ml 17:17 Drug: Phenergan 12.5 mg Route: IVP; Site: right antecubital; ca1 18:00 Follow up: Response: No adverse reaction; Nausea is decreased ca1 17:18 Drug: NS 0.9% 1000 ml Route: IV; Rate: 125 ml/hr; Site: right antecubital; ca1 18:00 Follow up: Response: No adverse reaction; IV Status: Infusion continued upon transfer ca1 17:19 Drug: morphine 2 mg {Note: rass 0.} Route: IVP; Site: right antecubital; ca1 17:22 Drug: Ativan 0.5 mg Route: IVP; Site: right antecubital; ca1 18:00 Follow up: Response: No adverse reaction; Marked relief of symptoms ca1 Disposition: 18:00 Chart complete. cp 18:41 Co-signature as Attending Physician, Aidan Escoto MD. rn Disposition: 09/04/20 16:04 Transfer ordered to [facility]. Diagnosis are Hepatic failure, unspecified, Abnormal electrocardiogram [ECG] [EKG]. - Reason for transfer: Higher level of care. - Accepting physician is DR Mcclelland and DR Pepper. - Condition is Stable. - Problem is new. - Symptoms have improved. Signatures: Dispatcher [employer] Aidan Quiroga MD MD rn Page, Corey, PA PA cp Sushila Witt RN RN ca1 Cecily Deng RN RN ll1 Corrections: (The following items were deleted from the chart) 16:23 14:54 Normal except: ALK 118; BILIT 2.4; BILID 1.0; GLOB 4.0; A/G 1.0. cp cp 16:27 16:04 09/04/2020 16:04 Transfer ordered to [facility]. cp Diagnosis is Hepatic failure, unspecified. Reason for transfer: Higher level of care. Accepting physician is Doctor. Condition is Stable. Problem is new. Symptoms have improved. cp 18:19 16:27 09/04/2020 16:04 Transfer ordered to [facility]. ca1 Diagnosis is Hepatic failure, unspecified; Abnormal electrocardiogram [ECG] [EKG]. Reason for transfer: Higher level of care. Accepting physician is DR Mcclelland and DR Pepper. Condition is Stable. Problem is new. Symptoms have improved. cp 09/05 16:30 Data reviewed: vital signs, nurses notes, lab test result(s), EKG, cp radiologic studies, CT scan, ultrasound, I have discussed the patient's presentation/case with the attending Emergency Department Physician; cp 09/05 16:30 Test interpretation: by ED physician or midlevel provider: ECG, cp cp 09/05 16:30 Response to treatment: the patient's symptoms have mildly improved after cp treatment, cp
--- NOTE | 2020-09-04 16:05 | ER ---
Nurse's Notes [facility] Name: Diogo Holden Age: 39 yrs Sex: Male : 1980 Arrival Date: 09/04/2020 Time: 13:06 Bed 27 Private MD: Sarah Meadows Diagnosis: Hepatic failure, unspecified;Abnormal electrocardiogram [ECG] [EKG] Presentation: 09/04 13:18 Chief complaint: Patient states: Back pain for 1 week. Pain has been so bad he started ll1 drinking a lot. No fever. Coronavirus screen: Client denies travel out of the [place] in the last 14 days. At this time, the client does not indicate any symptoms associated with coronavirus-19. Ebola Screen: Patient denies travel to an Ebola-affected area in the 21 days before illness onset. Initial Sepsis Screen: Does the patient meet any 2 criteria? HR > 90 bpm. Risk Assessment: Do you want to hurt yourself or someone else? Patient reports no desire to harm self or others. Onset of symptoms was August 30, 2020. 13:18 Method Of Arrival: Wheelchair ll1 13:18 Acuity: HEATHER 2 ll1 13:40 Initial Sepsis Screen: Does the patient have a suspected source of infection? No. ca1 Patient's initial sepsis screen is negative. Historical: - Allergies: 13:21 acetylcysteine; ll1 13:21 Risperdal; ll1 - PMHx: 13:21 "stomach issues"; Chronic pain; Hyperlipidemia; ll1 - PSHx: 13:21 None; ll1 - Immunization history:: Flu vaccine is not up to date. - Social history:: Smoking status: Patient reports the use of cigarette tobacco products, smokes one pack cigarettes per day. Screenin:40 Abuse screen: Denies threats or abuse. Denies injuries from another. Nutritional ca1 screening: No deficits noted. Tuberculosis screening: No symptoms or risk factors identified. Fall Risk IV access (20 points). Assessment: 13:40 General: Appears in no apparent distress. uncomfortable, Behavior is cooperative, ca1 restless. Pain: Complains of pain in back Pain currently is 9 out of 10 on a pain scale. Pain began a week ago Is intermittent. Neuro: Level of Consciousness is awake, alert, obeys commands, Oriented to person, place, time, situation. Cardiovascular: Heart tones S1 S2 present Capillary refill < 3 seconds. Respiratory: Airway is patent Respiratory effort is even, unlabored, Respiratory pattern is regular, symmetrical, Breath sounds are clear bilaterally. GI: Abdomen is flat, non-distended, Pt is actively vomiting clear fluid, Bowel sounds present X 4 quads. Abd is soft and non tender X 4 quads. : No signs and/or symptoms were reported regarding the genitourinary system. EENT: No signs and/or symptoms were reported regarding the EENT system. Derm: Skin is intact, is healthy with good turgor, Skin is pink, warm \\T\\ dry. Musculoskeletal: Circulation, motion, and sensation intact. Capillary refill < 3 seconds. 14:20 Reassessment: EKG done, shown to provider. Order to repeat EKG, done. Shown to provider.ca1 14:22 Reassessment: Pt to CT. ca1 14:40 Reassessment: : Maria Alejandra [phone]. ca1 14:40 Reassessment: Dr. Escoto at bedside discussing POC. ca1 14:48 Reassessment: Patient appears in no apparent distress at this time. Patient is alert, ca1 oriented x 3, equal unlabored respirations, skin warm/dry/pink. 14:48 General: Appears in no apparent distress. comfortable, Behavior is calm, cooperative, ca1 appropriate for age. 15:50 Reassessment: Patient appears in no apparent distress at this time. Patient and/or ca1 family updated on plan of care and expected duration. Pain level reassessed. Patient is alert, oriented x 3, equal unlabored respirations, skin warm/dry/pink. 16:40 Reassessment: Patient appears in no apparent distress at this time. No changes from ca1 previously documented assessment. Patient and/or family updated on plan of care and expected duration. Pain level reassessed. Patient is alert, oriented x 3, equal unlabored respirations, skin warm/dry/pink. 17:34 Reassessment: Patient appears in no apparent distress at this time. Pt c/o N/V. Pt ca1 states, "Please give me something to make me sleep" Notified provider. VO for Ativan 0.5 mg IV. General: Appears in no apparent distress. uncomfortable, Behavior is cooperative, restless. 18:00 Reassessment: Patient appears in no apparent distress at this time. Patient is alert, ca1 oriented x 3, equal unlabored respirations, skin warm/dry/pink. General: Appears in no apparent distress. comfortable, Behavior is calm, cooperative, appropriate for age. Vital Signs: 13:18 BP 91 / 72; Pulse 100; Resp 20; Temp 99.4; Pulse Ox 97% ; Weight 99.79 kg; Height 6 ft. ll1 1 in. (185.42 cm); Pain 10/10; 14:03 BP 118 / 82; Pulse 100; Resp 18 S; Pulse Ox 99% on R/A; ca1 14:48 BP 132 / 75; Pulse 87; Resp 15 S; Pulse Ox 100% on R/A; ca1 15:05 BP 116 / 68; Pulse 76; Resp 20; Pulse Ox 100% on R/A; mt 17:12 BP 147 / 109; Pulse 86; Resp 15 S; Pulse Ox 98% on R/A; ca1 17:39 BP 127 / 106; Pulse 85; Resp 18 S; Pulse Ox 98% on R/A; ca1 18:00 BP 158 / 94; Pulse 81; Resp 15 S; Pulse Ox 99% on R/A; ca1 13:18 Body Mass Index 29.03 (99.79 kg, 185.42 cm) ll1 ED Course: 13:06 Patient arrived in ED. mr 13:07 Sarah Meadows is Private Physician. mr 13:20 Triage completed. ll1 13:21 Arm band placed on. ll1 13:38 Sushila Witt, RN is Primary Nurse. ca1 13:40 Patient has correct armband on for positive identification. Placed in gown. Bed in low ca1 position. Call light in reach. Side rails up X2. Pulse ox on. NIBP on. Warm blanket given. 13:46 Maximilian Padilla PA is PHCP. cp 13:46 Aidan Escoto MD is Attending Physician. cp 14:15 EKG done, by ED staff, reviewed by Maximilian PAYAN. mt 14:16 Initial lab(s) drawn, by mn, sent to lab. Inserted saline lock: 20 gauge in right ca1 antecubital area, using aseptic technique. Blood collected. 14:23 EKG done, by ED staff, reviewed by Maximilian PAYAN. mt 14:30 CT Abd/Pelvis - IV Contrast Only In Process Unspecified. EDMS 15:26 contacted Emilia in lab to add on Tylenol level, she verified it would be added on. mt 15:44 US Abdomen Limited In Process Unspecified. EDMS 16:02 law draw from [facility] IV for ETOH and PTT added on, patient tolerated well. mt 16:52 initiated transfer to [facility]. bd 17:26 pt accepted in transfer to [facility] by dr granados, admin approval given bd by reg gauthier rn. 17:39 No provider procedures requiring assistance completed. Patient transferred, IV remains ca1 in place. Administered Medications: 14:35 Drug: NS 0.9% 1000 ml Route: IV; Rate: 1 bolus; Site: right antecubital; ca1 15:32 Follow up: Response: No adverse reaction; IV Status: Completed infusion; IV Intake: ca1 1000ml 14:36 Drug: Pepcid 20 mg Route: IVP; Site: right antecubital; ca1 15:32 Follow up: Response: No adverse reaction ca1 14:38 Drug: Zofran (Ondansetron) 4 mg Route: IVP; Site: right antecubital; ca1 15:33 Follow up: Response: No adverse reaction; Nausea is decreased; Vomiting decreased ca1 14:40 Drug: morphine 2 mg {Note: rass 1.} Route: IVP; Site: right antecubital; ca1 15:33 Follow up: Response: No adverse reaction; Pain is decreased; RASS: Alert and Calm (0) ca1 14:52 Drug: Ativan 0.5 mg Route: IVP; Site: right antecubital; ca1 15:31 Follow up: Response: No adverse reaction; Marked relief of symptoms ca1 15:02 Drug: Aspirin Chewable Tablet 324 mg Route: PO; ca1 15:32 Follow up: Response: No adverse reaction ca1 15:20 Drug: NS 0.9% 1000 ml Route: IV; Rate: 1000 ml; Site: right antecubital; ca1 16:20 Follow up: Response: No adverse reaction; IV Status: Completed infusion; IV Intake: ca1 1000ml 16:09 Drug: Acetylcysteine 150 mg/kg Route: IV; Rate: calculated rate; Site: right ca1 antecubital; 17:10 Follow up: Response: No adverse reaction; IV Status: Completed infusion; IV Intake: ca1 275ml 17:17 Drug: Phenergan 12.5 mg Route: IVP; Site: right antecubital; ca1 18:00 Follow up: Response: No adverse reaction; Nausea is decreased ca1 17:18 Drug: NS 0.9% 1000 ml Route: IV; Rate: 125 ml/hr; Site: right antecubital; ca1 18:00 Follow up: Response: No adverse reaction; IV Status: Infusion continued upon transfer ca1 17:19 Drug: morphine 2 mg {Note: rass 0.} Route: IVP; Site: right antecubital; ca1 17:22 Drug: Ativan 0.5 mg Route: IVP; Site: right antecubital; ca1 18:00 Follow up: Response: No adverse reaction; Marked relief of symptoms ca1 Intake: 15:32 IV: 1000ml; Total: 1000ml. ca1 16:20 IV: 1000ml; Total: 2000ml. ca1 17:10 IV: 275ml; Total: 2275ml. ca1 Outcome: 16:04 ER care complete, transfer ordered by MD. cp 18:10 Transferred by ground EMS to [facility], Transfer form completed. ca1 X-rays sent w/ patient. 18:10 Condition: stable 18:10 Instructed on the need for transfer. 18:19 Patient left the ED. ca1 Signatures: Dispatcher [employer] EDMS Isabella Olsen, Estefany mr Maximilian Padilla PA PA cp Thompson, Moriah mt Acob, Cheryl RN RN ca1 Cecily Deng RN RN ll1 Corrections: (The following items were deleted from the chart) 17:33 14:48 Reassessment: Patient appears in no apparent distress at this time. Patient is ca1 alert, oriented x 3, equal unlabored respirations, skin warm/dry/pink. ca1 17:34 17:32 Reassessment: Patient appears in no apparent distress at this time. No changes ca1 from previously documented assessment. Patient and/or family updated on plan of care and expected duration. Pain level reassessed. ca1
[2020-09-04 16:19] LABS: Protime INR 1.75
[2020-09-04] MEDS ORDERED: PROMETHAZINE INJ 25 MG/ML AMP ONE (17:20)
[2020-09-04 19:29] VITALS: TEMP 99.4
[2020-09-04 19:38] VITALS: BP 158/94; O2SAT 99
--- NOTE | 2020-09-06 06:00 | EKG ---
Test Date: 2020-09-04 Test Time: 14:24:25 Network Program Manager: MADY MEASUREMENT RESULTS: Intervals: Rate: 83 CT: 130 QRSD: 100 QT: 386 QTc: 453 [place]: P: 37 CT: 130 QRS: 15 T: 43 INTERPRETIVE STATEMENTS: Normal sinus rhythm ST elevation, consider inferior injury or acute infarct ACUTE [place] Abnormal ECG Compared to ECG 09/04/2020 14:16:10 No significant changes Electronically Signed On 09-06-20 05:56:20 CDT by Victoriano Aragon
--- NOTE | 2020-09-06 06:01 | EKG ---
Test Date: 2020-09-04 Test Time: 14:16:10 Shipping/Receiving Clerk: MADY MEASUREMENT RESULTS: Intervals: Rate: 83 IA: 130 QRSD: 102 QT: 400 QTc: 470 [place]: P: 41 IA: 130 QRS: 31 T: 50 INTERPRETIVE STATEMENTS: Normal sinus rhythm ST elevation, consider inferior injury or acute infarct ACUTE [place] Abnormal ECG Compared to ECG 01/04/2019 11:01:54 ST (T wave) deviation now present Myocardial infarct finding now present Electronically Signed On 09-06-20 05:56:35 CDT by Victoriano Aragon
--- OUTSIDE RECORDS SUMMARY | 2020-09-07 06:56 | XMS REPORT | Clinical Summary ---
:1980 Author Organization [facility] Address [address] [place] [address] Care Team Providers Name Role Phone Noemi Meadows IP LITIGATION PARALEGAL Primary Care Provider Allergies No Known Allergies Medications No known medications Active Problems Problem Noted Date Acute liver failure 09/04/2020 Encounters Date Type Specialty Care Team Description 09/04/2020 Hospital Encounter General Internal G[place], Acute liver failure without hepatic coma; Medicine Kate Acute hepatitis ; MD Govind Drug-induced liver injury; Braeden Coagulopathy (H CC); MD Jefferson Thrombocytopenia (HCC); Jacqui Rodriguez Polysubstanc e abuse (HCC); MD Gladys Anxiety and depression Isela Frankel 09/04/2020 Travel after 09/06/2019 Social History Tobacco Use Types Packs/Day Years [...] Vital Sign Reading Time Taken Blood Pressure 112/57 09/07/2020 4:06 AM CDT Pulse 97 09/07/2020 4:06 AM CDT Temperature 37.1 C (98.7 F) 09/07/2020 4:06 AM CDT Respiratory Rate 19 09/07/2020 4:06 AM CDT Oxygen Saturation 95% 09/07/2020 4:06 AM CDT Inhaled Oxygen Concentration - - Weight 100.8 kg (222 lb 3.6 oz) 09/07/2020 6:1 3 AM CDT Height 185.4 cm (6' 1") 09/04/2020 7:47 PM CDT Body Mass Index 29.32 09/07/2020 6:13 AM CDT Plan of Treatment Health Maintenance Due Date Last Done Comments PNEUMOCOCCAL VACCINE 2-64 YEARS AT RISK (1 of 1 - 1987 PPSV23) LIPID PANEL 2016 INFLUENZA VACCINE (#1) 2020 Procedures The patient is currently admitted. The information in this section might not be complete until the patient is discharged. Procedure Name Priority Date/Time Associated Comments Diagnosis CBC W/PLT COUNT & AUTO Routine 09/07/2020 5:21 R esults for this DIFFERENTIAL AM CDT procedure are i n the results section. COMPREHENSIVE Routine 09/07/2020 5:21 Results fo r this METABOLIC PANEL AM CDT procedure ar e in the results section. CBC W/PLT COUNT & AUTO Routine 09/07/2020 5:21 R esults for this DIFFERENTIAL AM CDT procedure are i n the results section. HEPATIC FUNCTION PANEL Routine 09/07/2020 5:21 R esults for this AM CDT procedure are i n the results section. MR THORACIC SPINE Routine 09/06/2020 8:31 Result s for this WITHOUT IV CONTRAST PM CDT procedur e are in the results section. MR LUMBAR SPINE Routine 09/06/2020 7:55 Results for this WITHOUT IV CONTRAST PM CDT procedur e are in the results section. US ABDOMINAL WITH PRICE 09/06/2020 12:16 Result s for this DOPPLER PM CDT procedure are i n the results section. PHOSPHORUS Add-On 09/06/2020 5:39 Results for this AM CDT procedure are i n the results section. [id number]\\, Routine 09/06/2020 5:39 Re sults for this SERUM AM CDT procedure are i n the results section. ALPHA FETOPROTEIN Routine 09/06/2020 5:39 Result s for this (AFP), TUMOR MARKER AM CDT procedur e are in the results section. PROTHROMBIN TIME/INR Routine 09/06/2020 5:39 Res ults for this AM CDT procedure are i n the results section. MAGNESIUM Routine 09/06/2020 5:39 Results for this AM CDT procedure are i n the results section. HEPATIC FUNCTION PANEL Routine 09/06/2020 5:39 R esults for this AM CDT procedure are i n the results section. BASIC METABOLIC PANEL Routine 09/06/2020 5:39 Re sults for this (7) AM CDT procedure are i n the results section. CBC W/PLT COUNT & AUTO Routine 09/06/2020 5:38 R esults for this DIFFERENTIAL AM CDT procedure are i n the results section. CBC W/PLT COUNT & AUTO Routine 09/06/2020 5:38 R esults for this DIFFERENTIAL AM CDT procedure are i n the results section. MAGNESIUM PRICE 09/05/2020 6:54 Results for this PM CDT procedure are i n the results section. PHOSPHORUS PRICE 09/05/2020 6:54 Results for this PM CDT procedure are i n the results section. COMPREHENSIVE PRICE 09/05/2020 6:54 Results fo r this METABOLIC PANEL PM CDT procedure ar e in the results section. CBC W/PLT COUNT & AUTO Routine 09/05/2020 5:20 R esults for this DIFFERENTIAL AM CDT procedure are i n the results section. CBC W/PLT COUNT & AUTO Routine 09/05/2020 5:20 R esults for this DIFFERENTIAL AM CDT procedure are i n the results section. PROTHROMBIN TIME/INR Routine 09/05/2020 5:20 Res ults for this AM CDT procedure are i n the results section. PHOSPHORUS Routine 09/05/2020 5:20 Results for this AM CDT procedure are i n the results section. MAGNESIUM Routine 09/05/2020 5:20 Results for this AM CDT procedure are i n the results section. HEPATIC FUNCTION PANEL Routine 09/05/2020 5:20 R esults for this AM CDT procedure are i n the results section. BASIC METABOLIC PANEL Routine 09/05/2020 5:20 Re sults for this (7) AM CDT procedure are i n the results section. FERRITIN Routine 09/05/2020 5:20 Results for this AM CDT procedure are i n the results section. IRON, TIBC, % SAT. Routine 09/05/2020 5:20 Resul ts for this (WITHOUT FERRITIN) AM CDT procedure are in the results section. SARS-COV2/RT-PCR ([facility] Routine 09/04/2020 10:16 R esults for this & REF LABS) PM CDT procedure are i n the results section. CBC W/PLT COUNT & AUTO Routine 09/04/2020 10:15 R esults for this DIFFERENTIAL PM CDT procedure are i n the results section. HEPATITIS A PANEL Routine 09/04/2020 10:15 Result s for this PM CDT procedure are i n the results section. HEPATITIS C ANTIBODY Routine 09/04/2020 10:15 Res ults for this PM CDT procedure are i n the results section. HEPATITIS B PANEL Routine 09/04/2020 10:15 Result s for this PM CDT procedure are i n the results section. CBC W/PLT COUNT & AUTO Routine 09/04/2020 10:15 R esults for this DIFFERENTIAL PM CDT procedure are i n the results section. PROTHROMBIN TIME/INR Routine 09/04/2020 10:15 Res ults for this PM CDT procedure are i n the results section. MAGNESIUM Routine 09/04/2020 10:15 Results for this PM CDT procedure are i n the results section. HEPATIC FUNCTION PANEL Routine 09/04/2020 10:15 R esults for this PM CDT procedure are i n the results section. BASIC METABOLIC PANEL Routine 09/04/2020 10:15 Re sults for this (7) PM CDT procedure are i n the results section. after 09/06/2019 Results CBC with platelet count + automated diff (09/07/2020 5:21 AM CDT)Only the most recent of4 resultswithin the time period is included. WBC 4.9 3.5 - 10.5 K/L [facility] RBC 4.02 (L) 4.63 - 6.08 M/L [facility] Hemoglobin 11.9 (L) 13.7 - 17.5 GM/DL [facility] Hematocrit 35.9 (L) 40.1 - 51.0 % [facility] MCV 89.3 79.0 - 92.2 fL [facility] MCH 29.6 25.7 - 32.2 pg [facility] MCHC 33.1 32.3 - 36.5 GM/DL [facility] RDW 13.1 11.6 - 14.4 % [facility] Platelets 105 (L) 150 - 450 K/CU MM [facility] MPV 9.3 (L) 9.4 - 12.4 fL [facility] nRBC 0 0 - 0 /100 WBC [facility] % Neutros 52 % [facility] % Lymphs 34 % [facility] % Monos 7 % [facility] % Eos 7 % [facility] % Baso 1 % [facility] # Neutros 2.52 1.78 - 5.38 K/L [facility] # Lymphs 1.64 1.32 - 3.57 K/L [facility] # Monos 0.35 0.30 - 0.82 K/L [facility] # Eos 0.33 0.04 - 0.54 K/L [facility] # Baso 0.03 0.01 - 0.08 K/L [facility] Immature Granulocytes-Relative 0 0 - 1 % C [facility] Specimen Blood Performing Organization Address City/State/Zipcode Phone Number [facility] [address] [place] [address] CENTER Hepatic function panel (09/07/2020 5:21 AM CDT)Only the most recent of4 results within the time period is included. Protein, Total 5.9 (L) 6.0 - 8.3 gm/dL [facility] Albumin 3.6 3.5 - 5.0 g/dL [facility] Total Bilirubin 1.6 (H) 0.2 - 1.2 mg/dL [facility] Bilirubin, Direct 1.1 (H) 0.1 - 0.5 mg/dL [facility] Alkaline Phosphatase 68 40 - 150 U/L [facility] AST 341 (H) 5 - 34 U/L [facility] ALT 1,900 (H) 6 - 55 U/L [facility] Specimen Blood Narrative Performed At [employer] JOSE LUIS Adams [facility] Performing Organization Address City/State/Zipcode Phone Number [facility] [address] [place] [address] CENTER Comprehensive metabolic panel (09/07/2020 5:21 AM CDT)Only the most recent of2 resultswithin the time period is included. Protein, Total 5.9 (L) 6.0 - 8.3 gm/dL [facility] Albumin 3.6 3.5 - 5.0 g/dL [facility] Alkaline Phosphatase 68 40 - 150 U/L [facility] Total Bilirubin 1.6 (H) 0.2 - 1.2 mg/dL [facility] Sodium 142 136 - 145 meq/L [facility] Potassium 3.6 3.5 - 5.1 meq/L [facility] Chloride 109 (H) 98 - 107 meq/L [facility] CO2 24 22 - 29 meq/L [facility] BUN 9 7 - 21 mg/dL [facility] Creatinine 0.71 0.57 - 1.25 mg/dL [facility] Glucose 111 (H) 70 - 105 mg/dL [facility] Calcium 7.9 (L) 8.4 - 10.2 mg/dL [facility] AST 341 (H) 5 - 34 U/L [facility] ER ALT 1,900 (H) 6 - 55 U/L [facility] ER EGFR 124Comment: ESTIMATED mL/min/1.[address] [facility] GFR IS NOT ACCURATE [facility] CENTER CREATININE CLEARANCE IN PREDICTING GLOMERULAR FILTRATION RATE. ESTIMATED GFR IS NOT APPLICABLE FOR DIALYSIS PATIENTS. 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 TECHNIQUE: Sagittal T1-, T2-, and T2-w f at-saturated images, and axial T1-w and T2-w images of the thorac ic and lumbar spine. COMPARISON: 02/07/2013 CT abdomen/pelvis FINDINGS: THORACIC SPINE: Alignment: Normal Vertebral Bodies: Normal in height. No a cute fracture. Marrow Signal: Expected. No suspicious l esion or marrow edema. Intervertebral Discs: Mild to moderate m ultilevel degenerative disc disease with height loss most notable at T5-T6, T6-T7, and T11-T12. Spinal cord: Normal Paraspinal Soft Tissues: Normal Individual Levels: Small central disc pr otrusion at T8-T9 contacting the ventral cord. No spinal canal or for aminal stenosis. LUMBAR SPINE: Spine Numbering: For purposes of this di ctation, it is assumed that there are 5 [id number], lumbar-type vertebrae, and the most caudal fully segmented lumbar vertebra i s labeled L5. Alignment: No acute malalignment. Grade 1 anterolisthesis of L5 on S1 with associated bilateral pars interarti cularis defects. Vertebral Bodies: No acute fracture. Hannah tebral body heights are preserved. Marrow Signal: Expected. No inflammatory marrow signal or suspicious lesion. Intervertebral Discs: Disc desiccation w ithout significant height loss at L5-S1. Conus Medullaris:Terminates at a nor mal level, L1. Cauda Equina: Normal Paraspinal Soft Tissues: Normal Individual Levels: T12-L1: No spinal canal or foraminal clement nosis. L1-L2: No spinal canal or foraminal sten osis. L2-L3:No spinal canal or foraminal s tenosis. L3-L4:No spinal canal or foraminal s tenosis. L4-L5:No spinal canal or foraminal s tenosis. L5-S1:Level of grade 1 anterolisthes is with unroofing of the posterior disc. There is small superimpo sed disc bulge with posterior annular fissure and mild bilateral facet arthropathy. No spinal canal. There is mild bilateral foraminal stenosis. IMPRESSION: 1. No acute abnormality or significant s tenosis of the thoracolumbar spine. 2. Small central disc protrusion at T8-T 9 contacting the ventral cord without spinal canal stenosis. 3.At L5-S1 there is grade 1 anterolisthe sis with bilateral spondylolysis, small disc bulge with pos terior annular fissure, and modest degenerative changes resulting in mild bilateral foraminal stenosis. No high-grade stenosis. Signed: Gisella Puckett MD Report Verified Date/Time:09/06/2020 23:30:49 Procedure Note Interface, External Ris In - 09/06/2020 11:33 PM CDT FINAL REPORT EXAM: MR, SPINE, THORACIC, WITHOUT CONTR AST, MR, SPINE, LUMBAR, WITHOUT CONTRAST 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 TECHNIQUE: Sagittal T1-, T2-, and T2-w f at-saturated images, and axial T1-w and T2-w images of the thorac ic and lumbar spine. COMPARISON: 02/07/2013 CT abdomen/pelvis FINDINGS: THORACIC SPINE: Alignment: Normal Vertebral Bodies: Normal in height. No a cute fracture. Marrow Signal: Expected. No suspicious l esion or marrow edema. Intervertebral Discs: Mild to moderate m ultilevel degenerative disc disease with height loss most notable at T5-T6, T6-T7, and T11-T12. Spinal cord: Normal Paraspinal Soft Tissues: Normal Individual Levels: Small central disc pr otrusion at T8-T9 contacting the ventral cord. No spinal canal or for aminal stenosis. LUMBAR SPINE: Spine Numbering: For purposes of this di ctation, it is assumed that there are 5 [id number], lumbar-type vertebrae, and the most caudal fully segmented lumbar vertebra i s labeled L5. Alignment: No acute malalignment. Grade 1 anterolisthesis of L5 on S1 with associated bilateral pars interarti cularis defects. Vertebral Bodies: No acute fracture. Hannah tebral body heights are preserved. Marrow Signal: Expected. No inflammatory marrow signal or suspicious lesion. Intervertebral Discs: Disc desiccation w ithout significant height loss at L5-S1. Conus Medullaris: Terminates at a shabnam l level, L1. Cauda Equina: Normal Paraspinal Soft Tissues: Normal Individual Levels: T12-L1: No spinal canal or foraminal clement nosis. L1-L2: No spinal canal or foraminal sten osis. L2-L3: No spinal canal or foraminal clement nosis. L3-L4: No spinal canal or foraminal clement nosis. L4-L5: No spinal canal or foraminal clement nosis. L5-S1: Level of grade 1 anterolisthesis with unroofing of the posterior disc. There is small superimpo sed disc bulge with posterior annular fissure and mild bilateral facet arthropathy. No spinal canal. There is mild bilateral foraminal stenosis. IMPRESSION: 1. No acute abnormality or significant s tenosis of the thoracolumbar spine. 2. Small central disc protrusion at T8-T 9 contacting the ventral cord without spinal canal stenosis. 3.At L5-S1 there is grade 1 anterolisthe sis with bilateral spondylolysis, small disc bulge with pos terior annular fissure, and modest degenerative changes resulting in mild bilateral foraminal stenosis. No high-grade stenosis. 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 TECHNIQUE: Sagittal T1-, T2-, and T2-w f at-saturated images, and axial T1-w and T2-w images of the thorac ic and lumbar spine. COMPARISON: 02/07/2013 CT abdomen/pelvis FINDINGS: THORACIC SPINE: Alignment: Normal Vertebral Bodies: Normal in height. No a cute fracture. Marrow Signal: Expected. No suspicious l esion or marrow edema. Intervertebral Discs: Mild to moderate m ultilevel degenerative disc disease with height loss most notable at T5-T6, T6-T7, and T11-T12. Spinal cord: Normal Paraspinal Soft Tissues: Normal Individual Levels: Small central disc pr otrusion at T8-T9 contacting the ventral cord. No spinal canal or for aminal stenosis. LUMBAR SPINE: Spine Numbering: For purposes of this di ctation, it is assumed that there are 5 [id number], lumbar-type vertebrae, and the most caudal fully segmented lumbar vertebra i s labeled L5. Alignment: No acute malalignment. Grade 1 anterolisthesis of L5 on S1 with associated bilateral pars interarti cularis defects. Vertebral Bodies: No acute fracture. Hannah tebral body heights are preserved. Marrow Signal: Expected. No inflammatory marrow signal or suspicious lesion. Intervertebral Discs: Disc desiccation w ithout significant height loss at L5-S1. Conus Medullaris:Terminates at a nor mal level, L1. Cauda Equina: Normal Paraspinal Soft Tissues: Normal Individual Levels: T12-L1: No spinal canal or foraminal clement nosis. L1-L2: No spinal canal or foraminal sten osis. L2-L3:No spinal canal or foraminal s tenosis. L3-L4:No spinal canal or foraminal s tenosis. L4-L5:No spinal canal or foraminal s tenosis. L5-S1:Level of grade 1 anterolisthes is with unroofing of the posterior disc. There is small superimpo sed disc bulge with posterior annular fissure and mild bilateral facet arthropathy. No spinal canal. There is mild bilateral foraminal stenosis. IMPRESSION: 1. No acute abnormality or significant s tenosis of the thoracolumbar spine. 2. Small central disc protrusion at T8-T 9 contacting the ventral cord without spinal canal stenosis. 3.At L5-S1 there is grade 1 anterolisthe sis with bilateral spondylolysis, small disc bulge with pos terior annular fissure, and modest degenerative changes resulting in mild bilateral foraminal stenosis. No high-grade stenosis. Signed: Gisella Puckett MD Report Verified Date/Time:09/06/2020 23:30:49 Procedure Note Interface, External Ris In - 09/06/2020 11:33 PM CDT FINAL REPORT EXAM: MR, SPINE, THORACIC, WITHOUT CONTR AST, MR, SPINE, LUMBAR, WITHOUT CONTRAST 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 TECHNIQUE: Sagittal T1-, T2-, and T2-w f at-saturated images, and axial T1-w and T2-w images of the thorac ic and lumbar spine. COMPARISON: 02/07/2013 CT abdomen/pelvis FINDINGS: THORACIC SPINE: Alignment: Normal Vertebral Bodies: Normal in height. No a cute fracture. Marrow Signal: Expected. No suspicious l esion or marrow edema. Intervertebral Discs: Mild to moderate m ultilevel degenerative disc disease with height loss most notable at T5-T6, T6-T7, and T11-T12. Spinal cord: Normal Paraspinal Soft Tissues: Normal Individual Levels: Small central disc pr otrusion at T8-T9 contacting the ventral cord. No spinal canal or for aminal stenosis. LUMBAR SPINE: Spine Numbering: For purposes of this di ctation, it is assumed that there are 5 [id number], lumbar-type vertebrae, and the most caudal fully segmented lumbar vertebra i s labeled L5. Alignment: No acute malalignment. Grade 1 anterolisthesis of L5 on S1 with associated bilateral pars interarti cularis defects. Vertebral Bodies: No acute fracture. Hannah tebral body heights are preserved. Marrow Signal: Expected. No inflammatory marrow signal or suspicious lesion. Intervertebral Discs: Disc desiccation w ithout significant height loss at L5-S1. Conus Medullaris: Terminates at a shabnam l level, L1. Cauda Equina: Normal Paraspinal Soft Tissues: Normal Individual Levels: T12-L1: No spinal canal or foraminal clement nosis. L1-L2: No spinal canal or foraminal sten osis. L2-L3: No spinal canal or foraminal clement nosis. L3-L4: No spinal canal or foraminal clement nosis. L4-L5: No spinal canal or foraminal clement nosis. L5-S1: Level of grade 1 anterolisthesis with unroofing of the posterior disc. There is small superimpo sed disc bulge with posterior annular fissure and mild bilateral facet arthropathy. No spinal canal. There is mild bilateral foraminal stenosis. IMPRESSION: 1. No acute abnormality or significant s tenosis of the thoracolumbar spine. 2. Small central disc protrusion at T8-T 9 contacting the ventral cord without spinal canal stenosis. 3.At L5-S1 there is grade 1 anterolisthe sis with bilateral spondylolysis, small disc bulge with pos terior annular fissure, and modest degenerative changes resulting in mild bilateral foraminal stenosis. No high-grade stenosis. Signed: Gisella Puckett MD Report Verified Date/Time: 09/06/2020 2 3:30:49 Performing Organization Address City/State/Zipcode Phone Number [facility] US abdominal with doppler (09/06/2020 12:16 PM CDT) Specimen Narrative Performed At FINAL REPORT [facility] HISTORY : Elevated LFTs. Evaluate for as cites, liver disease, and hepatic vasculature COMPARISON : None. COMMENT : Complete ultrasound examination of the a bdomen with color Doppler and spectral evaluation of the abdominal vas culature was performed. The visualized pancreas appears unremark able. The liver is normal in size measuring 14 .7 cm in length. Hepatic echogenicity is within normal limits. No focal hepatic abnormalities are identified. The gallbladder is unrem arkable. There is no intra or extra hepatic biliary ductal dilatation. The common bile duct measures 3 mm. Sonographic Hernandez's sign is negative. The spleen measures 12.6 cm in length an d demonstrates an unremarkable sonographic appearance. The kidneys are normal in size measuring 11.4 cm in length on the right and 13.6 cm in length on the left. Cortical thickness/echogenicity is within normal limits. There is no evidence for solid renal mass, hydronephrosis, or shadowing calculi. There is no ascites present. Vascular: The main portal vein is patent with ante grade flow and diameter of 1.2 cm, within normal limits. Peak systo lic velocity is 32.5 cm/s. The right left portal veins are patent w ith antegrade flow. The proper hepatic artery is patent with resistive indices of 0.6. The right left hepatic artery is are pat ent with resistive indices of 0.7 and 0.6. Arterial waveforms are with in normal limits. The IVC is patent and unremarkable. The middle, right, left hepatic veins are patent and unremarkable. The v isualized portions of the splenic artery and vein are patent. The aorta is normal in caliber. IMPRESSION : Unremarkable sonographic appearance of t he liver without evidence for focal abnormality. No no ascites present . Unremarkable abdominal Doppler examinati on with patent hepatic vasculature. Signed: Erasto Martin MD Report Verified Date/Time:09/06/2020 12:30:32 Procedure Note Interface, External Ris In - 09/06/2020 12:32 PM CDT FINAL REPORT HISTORY : Elevated LFTs. Evaluate for as cites, liver disease, and hepatic vasculature COMPARISON : None. COMMENT : Complete ultrasound examination of the a bdomen with color Doppler and spectral evaluation of the abdominal vas culature was performed. The visualized pancreas appears unremark able. The liver is normal in size measuring 14 .7 cm in length. Hepatic echogenicity is within normal limits. No focal hepatic abnormalities are identified. The gallbladder is unrem arkable. There is no intra or extra hepatic biliary ductal dilatation. The common bile duct measures 3 mm. Sonographic Hernandez's sign is negative. The spleen measures 12.6 cm in length an d demonstrates an unremarkable sonographic appearance. The kidneys are normal in size measuring 11.4 cm in length on the right and 13.6 cm in length on the left. Cortical thickness/echogenicity is within normal limits. There is no evidence for solid renal mass, hydronephrosis, or shadowing calculi. There is no ascites present. Vascular: The main portal vein is patent with ante grade flow and diameter of 1.2 cm, within normal limits. Peak systo lic velocity is 32.5 cm/s. The right left portal veins are patent w ith antegrade flow. The proper hepatic artery is patent with resistive indices of 0.6. The right left hepatic artery is are pat ent with resistive indices of 0.7 and 0.6. Arterial waveforms are with in normal limits. The IVC is patent and unremarkable. The middle, right, left hepatic veins are patent and unremarkable. The v isualized portions of the splenic artery and vein are patent. The aorta is normal in caliber. IMPRESSION : Unremarkable sonographic appearance of t he liver without evidence for focal abnormality. No no ascites present . Unremarkable abdominal Doppler examinati on with patent hepatic vasculature. Signed: Erasto Martin MD Report Verified Date/Time: 09/06/2020 1 2:30:32 Performing Organization Address City/[facility]/Zipcode Phone Number [facility] [id number] (09/06/2020 5:39 AM CDT) A-1 Antitrypsin 166.50 90.00 - 200.00 mg/dL [facility] Specimen Blood Narrative Performed At Toggle Press Folder And Feeder ID - [facility] Performing Organization Address [facility]/[place] Phone Number [address] [address] CENTER Alpha fetoprotein (AFP), tumor marker (09/06/2020 5:39 AM CDT) Alpha-Fetoprotein 6.3 <10.0 ng/mL [facility] Specimen Blood Narrative Performed At Toggle Press Folder And Feeder ID - ALEKSEY M [facility] Performing Organization Address [facility]/[place] Phone Number [address] [address] C[place] Prothrombin time/INR (09/06/2020 5:39 AM CDT)Only the most recent of3 results within the time period is included. Protime 17.3 (H) 11.9 - 14.2 seconds [facility] INR 1.46 <=5.90 [facility] Specimen Blood Narrative Performed At Effective 04/28/2019: PT Reference Range [facility] Change New: 11.9-14.2Previous: 11.7-14.7 RECOMMENDED COUMADIN/WARFARIN INR THERAPY RANGES STANDARD DOSE: 2.0-3.0Includes: PROPHYLAXIS for venous thrombosis, systemic embolization; TREATMENT for venous thrombosis and/or pulmonary embolus. HIGH RISK: Target INR is 2.5-3.5 for patients wiht mechanical heart valves. Performing Organization Address [facility]/[place] Phone Number [address] [address] C[place] Phosphorus (09/06/2020 5:39 AM CDT)Only the most recent of3 resultswithin the time period is included. Phosphorus 1.8 (L) 2.3 - 4.7 mg/dL [facility] Specimen Blood Narrative Performed At Toggle Press Folder And Feeder ID Dana Pereira [facility] Performing Organization Address [facility]/[place] Phone Number [address] [address] [place] Magnesium (09/06/2020 5:39 AM CDT)Only the most recent of4 resultswithin the time period is included. Magnesium 1.9 1.6 - 2.6 mg/dL [facility] Specimen Blood Narrative Performed At T[employer] Folder And Feeder ID Dana Adams [facility] Performing Organization Address [facility]/[place] Phone Number [address] [address] [place] Basic metabolic panel (09/06/2020 5:39 AM CDT)Only the most recent of3 results within the time period is included. Sodium 139 136 - 145 meq/L [facility] Potassium 3.5 3.5 - 5.1 meq/L [facility] Chloride 109 (H) 98 - 107 meq/L [facility] CO2 22 22 - 29 meq/L [facility] BUN 11 7 - 21 mg/dL [facility] Creatinine 0.63 0.57 - 1.25 mg/dL [facility] Glucose 97 70 - 105 mg/dL [facility] Calcium 7.7 (L) 8.4 - 10.2 mg/dL [facility] EGFR 143Comment: ESTIMATED GFR IS mL/min/1.73 sq m [facility] NOT ACCURATE CREATININE [place] DICAL [place] CLEARANCE IN PREDICTING GLOMERULAR FILTRATION RATE. ESTIMATED GFR IS NOT APPLICABLE FOR DIALYSIS PATIENTS. Specimen Blood Narrative Performed At T[employer] Folder And Feeder ID - ALEKSEY Adams [facility] Specimen slightly icteric Performing Organization Address City/[facility]/[place] Phone Number [address] [address] C[place] Iron, TIBC, % sat. (without ferritin) (09/05/2020 5:20 AM CDT) Iron 129.0 40.0 - 160.0 ug/dL [facility] TIBC 210 (L) 250 - 450 ug/dL [facility] Iron % Saturation 61 (H) 20 - 55 % [facility] Specimen Blood Narrative Performed At T[employer] Press Folder And Feeder ID - JD [facility] Performing Organization Address City/[facility]/[place] Phone Number [address] [address] C[place] Ferritin (09/05/2020 5:20 AM CDT) Ferritin 14,630.89 (H) 5.00 - 275.00 ng/mL [facility] Specimen Blood Narrative Performed At T[employer] Press Folder And Feeder ID - [facility] Performing Organization Address City/[facility]/[place] Phone Number [address] [address] [place] SARS-CoV2/RT-PCR (Asymptomatic ONLY) (09/04/2020 10:16 PM CDT) SARS-COV2/RT-PCR Negative Not Detected, Negative, [facility] See external report for MEDICAL CENTER linked test SARS-COV-[address] [facility] Specimen Other Narrative Performed At Negative result for this test determines that [facility] SARS-CoV-2 RNA was not present in the specimen above the Limit of Detection (LOD).However, Negative results do not preclude SARS-CoV-2 infection and should not be used as the sole basis for treatment or patient management decisions. Negative results must be combined with clinical observations, patient history, and epidemiological information. A false negative result may occur if a specimen is improperly collected, transported or handled.A false negative result should be considered if patient's recent exposures or clinical presentation indicate that COVID-19 (SARS-CoV-2) is likely and diagnostic tests for other causes of illness are negative.Re-testing should be considered in cases of suspected false negatives. The limit of detection for this assay is 800 copies/mL. This SARS CoV-2 test is a real-time RT-PCR test intended for the qualitative detection of nucleic acid from SARS-CoV-2 in a nasopharyngeal swab specimen collected from individuals suspected of COVID-19 by their healthcare provider. This test has not been Food and Drug Administration (FDA) cleared or approved.This is a modified version of an approved Emergency Use Authorization (EUA) and is in the process of review by the FDA. Once authorized by the FDA, the issued EUA will be effective until the declaration that circumstances exist justifying the authorization of the emergency use of in vitro diagnostic tests for detection and/or diagnosis of COVID-19 is terminated under Section 564(b)(2) of the Act or the EUA is revoked under Section 564(g) of the Act. Fact Sheet for Healthcare Providers: https://www.disco volante.hi5/sites/default/files/pro duct/documents/Fact_Sheet_HC_Providers_Lyra_SA RS-CoV-2.pdf Fact Sheet for Healthcare Patients: https://www.disco volante.hi5/sites/default/files/pro duct/documents/Fact_Sheet_Patients_Lyra_SARS-C oV-2.pdf Performing Laboratory: [address] [address] Performing Organization Address City/State/Zipcode Phone Number [address] [address] [place] Hepatitis B Panel (09/04/2020 10:15 PM CDT) Hep B Core Total Ab Reactive (A) Nonreactive [facility] Hep B S Ab 1,258.6 (H) <8.0 mIU/mL [facility] HBsAg Screen Nonreactive Nonreactive [facility] Specimen Blood Narrative Performed At Toggle [employer] Folder And Feeder ID - BRIANDA Dennis [facility] Performing Organization Address City/State/Zipcode Phone Number [address] [address] [place] Hepatitis A Panel (09/04/2020 10:15 PM CDT) Hep A IgM Nonreactive Nonreactive [facility] Hep A IgG Nonreactive Nonreactive [facility] Specimen Blood Narrative Performed At [employer] Folder And Feeder ID - BRIANDA Dennis [facility] Performing Organization Address City/State/Zipcode Phone Number [address] [address] [place] Hepatitis C antibody (09/04/2020 10:15 PM CDT) Hepatitis C Ab Nonreactive Nonreactive [facility] Specimen Blood Narrative Performed At Toggle Press Folder And Feeder ID - MICHA L [facility] Performing Organization Address City/State/Zipcode Phone Number [address] [address] CENTER after 09/06/2019 Insurance Payer Benefit Plan / Group Subscriber ID Type Phone A ddress [employer] ONLY xxxx Advance Directives For more information, please contact:[place] [phone] [facility] Morales [place], [place] [phone] Code Status Date Activated Date Inactivated Comments Full Code 09/04/2020 8:14 PM This code status was determined by: Patient
--- OUTSIDE RECORDS SUMMARY | 2020-09-07 06:58 | XMS REPORT | Continuity of Care Document ---
:1980 Author Organization [facility] t Address Formerly [facility], later [facility] [place] [address] Care Team Providers Name Role Phone Noemi Richmond Primary Care Physician JOHN NOWAK Attending Clinician Unavailable John Nowak MD Attending Clinician [phone] Braeden BANUELOS Attending Clinician Michael BANUELOS, PVince Attending Clinician Terrance Frankel Attending Clinician Magdaleno Lyons MD Attending Clinician BRAEDEN Admitting Clinician Unavailable Payers Payer Name Policy Policy Effective Expiration Source Type Number Date Date INTERNATIONALENDOSCOPY xxxx [facility] ONLYxxxx [facility] - Medical Cook Problems Condition Condition Condition Status Onset Resolution Last Treating Co mments Source Name Details Category Date Date Treatment Clinician Date Acute Acute Disease Active 2019-[address] [facility] liver liver 0-05 [facility] failure failure [facility] Center Cigarette Cigarette Problem Active [facility] nicotine nicotine [facility] - dependence dependence Me moria without without l complicati complicati Ou tpati on on ent Clinics 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 [facility] - with with Memoria nausea, nausea, l intractabi intractabi Ou tpati lity of lity of ent vomiting vomiting Clinic s not not specified specified Vitamin D Vitamin 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[facility] deficiency deficiency [facility] - Memoria l Outpati ent Clinics 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 [facility] [place] [place] [facility] Other Other Problem Active [facility] hemoglobin hemoglobin Mi kes - opathies opathies Memori a l [facility] Gastroesop Gastroesop Problem Active [facility] hageal hageal [facility] - reflux reflux Memoria disease disease l without without Outpati esophagiti esophagiti en t s s Clinics Migraine Migraine Problem Active [facility] with aura with aura Luke [facility] - and and Memoria without without l status status Outpati migrainosu migrainosu en t s, not s, not Clinics intractabl intractabl e e Anxiety Anxiety Problem [facility] Environmen Environmen Problem Active [facility] mari mari [facility] - allergies allergies Marino loren l [facility] Seasonal Seasonal Problem Active [facility] allergic allergic [facility] - rhinitis rhinitis Memori a due to due to l pollen pollen [facility] Family Family Problem Active [facility] history of history of Mi kes - hemochroma hemochroma Me moria tosis tosis l [facility] Pain of Pain of Problem Active [facility] left foot left foot Luke s - Memoria l [facility] 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[facility] - herniation herniation Me moria l [facility] Pain in Pain in Problem Active [facility] right foot right foot Mi kes - Memoria l [facility]ics Spondylosi 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[facility] of s of [facility] - lumbar lumbar Memoria spine spine l [facility] Unspecifie Unspecifie Problem Active [facility] - thoracic, thoracic, Marino loren thoracolum thoracolum l bar and bar and Outpati lumbosacra lumbosacra en t l l Clinics interverte 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 Drug abuse Drug abuse Problem Active [facility] Generalize Generalize Problem Active [facility] - abdominal abdominal Marino loren pain pain l [facility] Dehydratio Dehydratio Problem Active [facility] Drug Drug Problem Active [facility] abuse, abuse, [facility] - cocaine cocaine Memoria type type l [facility] Weight Weight Diagnosis Active [facility] loss loss [facility] - [facility] Bowel Bowel Problem Active [facility] habit habit [facility] - changes changes Memoria l [facility] Rectal Rectal Problem Active [facility] bleeding bleeding [facility] - Memoria l [facility] Rectal Rectal Problem Active [facility] pain pain kes - [facility] Allergies, Adverse Reactions, Alerts Allergy Allergy Status Severity Reaction(s) Onset Inactive Treating Comm ents Source Name Type Date Date Clinician mucomyst Adverse Active Info Not [facility] Social History Social Habit Start Date Stop Date Quantity Comments Source Sex Assigned At [facility] Cigarettes smoked 2020-09-04 2020-09-04 [facility] - current (pack per 00:00:00 00:00:00 [facility] Center day) - Reported Alcohol Comment 2018-03-05 2018-03-05 6 pack a month [facility] - [facility]00 00:00:00 [facility] Smoking Status Start Date Stop Date Source Current every day smoker 2020-09-04 00:00:00 [facility] Medications Ordered Filled Start Stop Current Ordering Indication Dosage Frequency Signature Comments Components Source Medication Medication Date Date Medication? Clinician (SIG) Name Name Gabapentin Gabapentin Yes Sarah [address] [facility] 2-06 Tama [facility] - 00:00: Memoria 00 l [facility] ent [facility] Ondansetron Ondansetron Yes Sarah [address] [facility] 2-06 Tama on the [facility] - 00:00: tongue and Memoria 00 allow to l dissolve [facility] as needed ent Clinics Escitalopra Escitalopra Yes Sarah [address] [facility] m Oxalate m Oxalate Tama Luke s - Memoria l [facility] ent [facility] Ibuprofen Ibuprofen Yes Sarah [address] [facility] [address] Tama with food [facility] - or milk as Memoria needed l [facility] Omeprazole Omeprazole Yes Sarah [address] Tama 30 minutes [facility] - before Memoria morning l meal [facility] ent Clinics Tylenol Tylenol Yes Sarah [address] [address] Tama as needed [facility] - Memoria l [facility] Vital Signs Vital Name Observation Time Observation Value Comments Source Body weight Measured 2020-09-07 06:13:00 100.8 kg [facility] BMI 2020-09-07 06:13:00 29.32 kg/m2 [facility] Systolic blood 2020-09-07 04:06:00 112 mm[Hg] [facility] Diastolic blood 2020-09-07 04:06:00 57 mm[Hg] [facility] Heart rate 2020-09-07 04:06:00 97 /min [facility] Body temperature 2020-09-07 04:06:00 37.06 Dorcas [facility] Respiratory rate 2020-09-07 04:06:00 19 /min [facility] Oxygen saturation in 2020-09-07 04:06:00 95 /min [facility] Arterial blood by Medical Ce nter Pulse oximetry Body height 2020-09-04 19:47:00 185.4 cm [facility] Procedures Procedure Date / Time Performed Performing Clinician [facility] e HEPATIC FUNCTION PANEL 2020-09-07 05:21:00 [facility] COMPREHENSIVE METABOLIC 2020-09-07 05:21:00 Isela Frankel [facility] CBC W/PLT COUNT & AUTO 2020-09-07 05:21:00 Isela Frankel [facility] MR THORACIC SPINE WITHOUT 2020-09-06 20:31:00 Isela Frankel [facility] MR LUMBAR SPINE WITHOUT 2020-09-06 19:55:00 Isela Frankel [facility] US ABDOMINAL WITH DOPPLER 2020-09-06 12:16:00 Dima Elias [facility] BASIC METABOLIC PANEL (7) 2020-09-06 05:39:00 [facility] HEPATIC FUNCTION PANEL 2020-09-06 05:39:00 [facility] MAGNESIUM 2020-09-06 05:39:00 [facility] PROTHROMBIN TIME/INR 2020-09-06 05:39:00 [facility] ALPHA FETOPROTEIN (AFP), 2020-09-06 05:39:00 Elias, Dima [facility] TUMOR MARKER [facility] [id number]\, 2020-09-06 05:39:00 Dima Elias [facility] PHOSPHORUS 2020-09-06 05:39:00 Dima Elias [facility] CBC W/PLT COUNT & AUTO 2020-09-06 05:38:00 [facility] COMPREHENSIVE METABOLIC 2020-09-05 18:54:00 Jacqui Rodriguez [facility] PHOSPHORUS 2020-09-05 18:54:[address] [facility] MAGNESIUM 2020-09-05 18:54:00 [facility]BC, % SAT. 2020-09-05 05:20:00 [facility] 2020-09-05 05:20:00 [facility] BASIC METABOLIC PANEL (7) 2020-09-05 05:20:00 [facility] HEPATIC FUNCTION PANEL 2020-09-05 05:20:00 [facility] MAGNESIUM 2020-09-05 05:20:00 [facility] PHOSPHORUS 2020-09-05 05:20:00 [facility] PROTHROMBIN TIME/INR 2020-09-05 05:20:00 [facility] CBC W/PLT COUNT & AUTO 2020-09-05 05:20:00 [facility] SARS-COV2/RT-PCR ([facility] & 2020-09-04 22:16:00 [facility] BASIC METABOLIC PANEL (7) 2020-09-04 22:15:00 [facility] HEPATIC FUNCTION PANEL 2020-09-04 22:15:00 [facility] MAGNESIUM 2020-09-04 22:15:00 [facility] PROTHROMBIN TIME/INR 2020-09-04 22:15:00 [facility] HEPATITIS B PANEL 2020-09-04 22:15:00 [facility] HEPATITIS C ANTIBODY 2020-09-04 22:15:00 [facility] HEPATITIS A PANEL 2020-09-04 22:15:00 [facility] CBC W/PLT COUNT & AUTO 2020-09-04 22:15:00 [facility] Plan of Care Planned Activity Planned Date Details Comments Source Future Scheduled 2020-08-01 INFLUENZA VACCINE (#1) [facility] Test 00:00:00 [code = INFLUENZA Medical Ce nter VACCINE (#1)] Future Scheduled 2016 Lipid [facility] - Test 00:00:00 (procedure) [code = Medical Center 27944638] Future Scheduled [address] [facility] - Test 00:00:00 2-64 YEARS AT RISK (1 [facility] Center of 1 - PPSV23) [code = PNEUMOCOCCAL VACCINE 2-64 YEARS AT RISK (1 of 1 - PPSV23)] Encounters Start End Encounter Admission Attending Care Care Encounter Source Date/Time Date/Time Type Type Clinicians Facility Department ID 2020-04-26 2020-04-26 Outpatient Sheron Hammonds [id number] [facility] [address] 09:40:00 09:40:00 [facility] Family Medicine l Medicine Outpati ent Clinics 2020-03-20 2020-03-20 Outpatient Sheron Hammonds [id number] 10:13:00 10:13:00 [facility] Family Medicine l Medicine Outpati ent Clinics 2020-02-07 2020-02-07 Office LADY Lyons [id number] 13:45:31 14:38:53 Visit Porfirio AMBULATOR [id number] Magdaleno Y [id number] 2020-01-31 2020-01-31 [facility] [id number] 13:20:00 13:20:00 [facility] Outpati ent Clinics 2020-01-06 2020-01-06 [facility] [id number] 16:00:00 16:00:00 [facility] Outpati ent Clinics 2018-11-09 2018-11-09 [facility] [id number] 15:25:00 15:25:00 t [facility] Outpati ent Clinics 2018-11-09 2018-11-09 [facility] [id number] 15:17:00 15:17:00 t [facility] Outpati ent Clinics 2018-07-22 2018-07-22 [facility] [id number] 13:30:00 13:30:00 t [facility] Outpati ent Clinics 2018-04-29 2018-04-29 [facility] [id number] 09:50:00 09:50:00 t [facility] Outpati ent Clinics 2018-04-20 2018-04-20 [facility] [id number] 14:05:00 14:05:00 t Urgent [facility] l Outpati ent Clinics 2018-04-20 2018-04-20 [facility] [id number] 08:30:00 08:30:00 t [facility] Outpati ent Clinics Results Test Description Test Time Test Comments Results Result Comments Source Comprehensive metabolic panel 2020-09-07 06:39:00 Test Item Value Reference Range Interpretation Comme nts Protein, Total (test code 5.9 6.0- 8.3 gm/dL L = 2885-2) Albumin (test code = 3.6 g/dL 3.5-5 04389-4) Alkaline Phosphatase (test 68 U/L 40-150 code = 6768-6) Total Bilirubin (test code 1.6 mg/dL 0.2-1.2 H = 1974-2) Sodium (test code = 142 meq/L 242-173 1835-2) Potassium (test code = 3.6 meq/L 3.5-5.1 2823-3) Chloride (test code = 109 meq/L 98-107 H 2075-0) CO2 (test code = 8-9) 24 meq/L 22-29 BUN (test code = 3094-0) 9 mg/dL 7-21 Creatinine (test code = 0.71 mg/dL 0.57-1.25 2160-0) Glucose (test code = 111 mg/dL 70-105 H 2345-7) Calcium (test code = 7.9 mg/dL 8.4-10.2 L 89089-6) AST (test code = 1920-8) 341 U/L 5-34 H ALT (test code = 1742-6) 1900 U/L 6-55 H EGFR (test code = 99239-0) 124 mL/min/1.73 sq m ESTIMATED GFR IS NOT ACCURATE CREATININE ABDIAS CANDE IN PREDICTING GLOMERULAR FILT RATION RATE. ESTIMATED GFR IS NOT APPLICAB LE FOR DIALYSIS PATIEN TSVince CAMI (test code = CAMI) House Moving Supervisor ID - ALEKSEY M Lab Interpretation (test Abnormal code = 63643-3) [facility] [id number] 06:39:00 Test Item Value Reference Range Interpretation Comments TOTAL PROTEIN 5.9 gm/dL 6.0-8.3 L (BEAKER) (test code = 770) ALBUMIN (BEAKER) 3.6 g/dL 3.5-5.0 (test code = 1145) ALKALINE PHOSPHATASE 68 U/L 40-150 (BEAKER) (test code = 346) BILIRUBIN TOTAL 1.6 mg/dL 0.2-1.2 H (BEAKER) (test code = 377) SODIUM (BEAKER) (test 142 meq/L 136-145 code = 381) POTASSIUM (BEAKER) 3.6 meq/L 3.5-5.1 (test code = 379) CHLORIDE (BEAKER) 109 meq/L 98-107 H (test code = 382) CO2 (BEAKER) (test 24 meq/L 22-29 code = 355) BLOOD UREA NITROGEN 9 mg/dL 7-21 (BEAKER) (test code = 354) CREATININE (BEAKER) 0.71 mg/dL 0.57-1.25 (test code = 358) GLUCOSE RANDOM 111 mg/dL 70-105 H (BEAKER) (test code = 652) CALCIUM (BEAKER) 7.9 mg/dL 8.4-10.2 L (test code = 697) AST (SGOT) (BEAKER) 341 U/L 5-34 H (test code = 353) ALT (SGPT) (BEAKER) 1900 U/L 6-55 H (test code = 347) EGFR (BEAKER) (test 124 ESTIMATE D GFR IS code = 1092) mL/min/1.73 sq NOT ACCURA TE m CREATININE CLEARANCE IN PREDICTING GLOMERULAR FILTRATION RATE . ESTIMATED GFR I S NOT APPLICABLE FOR DIALYSIS PATIEN TS. House Moving Supervisor ID - ALEKSEY epatic function [id number] 06:38:00 Test Item Value Reference Range Interpretation Comments Protein, Total (test code 5.9 6.0- 8.3 gm/dL L = 2885-2) Albumin (test code = 3.6 g/dL 3.5-5 30073-8) Total Bilirubin (test code 1.6 mg/dL 0.2-1.2 H = 1975-2) Bilirubin, Direct (test 1.1 mg/dL 0.1-0.5 H code = 1968-7) Alkaline Phosphatase (test 68 U/L 40-150 code = 6768-6) AST (test code = 1920-8) 341 U/L 5-34 H ALT (test code = 1742-6) 1900 U/L 6-55 H CAMI (test code = CAMI) House Moving Supervisor ID - ALEKSEY M Lab Interpretation (test Abnormal code = 95053-8) [facility] [id number] 06:38:00 Test Item Value Reference Range Interpretation Comments TOTAL PROTEIN (BEAKER) (test code = 5.9 gm/dL 6.0-8.3 L 770) ALBUMIN (BEAKER) (test code = 1145) 3.6 g/dL 3.5-5.0 BILIRUBIN TOTAL (BEAKER) (test code 1.6 mg/dL 0.2-1.2 H = 377) BILIRUBIN DIRECT (BEAKER) (test 1.1 mg/dL 0.1-0.5 H code = 706) ALKALINE PHOSPHATASE (BEAKER) (test 68 U/L 40-150 code = 346) AST (SGOT) (BEAKER) (test code = 341 U/L 5-34 H 353) ALT (SGPT) (BEAKER) (test code = 1900 U/L 6-55 H 347) House Moving Supervisor ID - ALEKSEY [facility] with platelet count + automated [id number] 05:52:00 Test Item Value Reference Range Interpretation Comments WBC (test code = 6690-2) 4.9 3.5- 10.5 K/L RBC (test code = 789-8) 4.02 4.63- 6.08 M/L L MCHC (test code = 786-4) 33.1 32.3- 36.5 GM/DL L Hematocrit (test code = 4544-3) 35.9 % 40.1-51 L MCV (test code = 787-2) 89.3 fL 79-92.2 MCH (test code = 785-6) 29.6 pg 25.7-32.2 RDW (test code = 788-0) 13.1 % 11.6-14.4 Platelets (test code = 777-3) 105 150- 450 K/CU MM L MPV (test code = 24295-7) 9.3 fL 9.4-12.4 L nRBC (test code = 413) 0 0- 0 /100 WBC % Neutros (test code = 429) 52 % % Lymphs (test code = 430) 34 % % Monos (test code = 431) 7 % % Eos (test code = 432) 7 % % Baso (test code = 437) 1 % # Neutros (test code = 670) 2.52 1.78- 5.38 K/L # Lymphs (test code = 414) 1.64 1.32- 3.57 K/L # Monos (test code = 415) 0.35 0.30- 0.82 K/L # Eos (test code = 416) 0.33 0.04- 0.54 K/L # Baso (test code = 417) 0.03 0.01- 0.08 K/L Immature Granulocytes-Relative 0 % 0-1 (test code = 2801) Lab Interpretation (test code = Abnormal 72923-7) [facility] W/PLT COUNT & AUTO [id number] 05:52:00 Test Item Value Reference Range Interpretation Comments WHITE BLOOD CELL COUNT (BEAKER) 4.9 K/ L 3.5-10.5 (test code = 775) RED BLOOD CELL COUNT (BEAKER) 4.02 M/ L 4.63-6.08 L (test code = 761) HEMOGLOBIN (BEAKER) (test code = 11.9 GM/DL 13.7-17.5 L 410) HEMATOCRIT (BEAKER) (test code = 35.9 % 40.1-51.0 L 411) MEAN CORPUSCULAR VOLUME (BEAKER) 89.3 fL 79.0-92.2 (test code = 753) MEAN CORPUSCULAR HEMOGLOBIN 29.6 pg 25.7-32.2 (BEAKER) (test code = 751) MEAN CORPUSCULAR HEMOGLOBIN CONC 33.1 GM/DL 32.3-36.5 (BEAKER) (test code = 752) RED CELL DISTRIBUTION WIDTH 13.1 % 11.6-14.4 (BEAKER) (test code = 412) PLATELET COUNT (BEAKER) (test 105 K/CU MM 150-450 L code = 756) MEAN PLATELET VOLUME (BEAKER) 9.3 fL 9.4-12.4 L (test code = 754) NUCLEATED RED BLOOD CELLS 0 /100 WBC 0-0 (BEAKER) (test code = 413) NEUTROPHILS RELATIVE PERCENT 52 % (BEAKER) (test code = 429) LYMPHOCYTES RELATIVE PERCENT 34 % (BEAKER) (test code = 430) MONOCYTES RELATIVE PERCENT 7 % (BEAKER) (test code = 431) EOSINOPHILS RELATIVE PERCENT 7 % (BEAKER) (test code = 432) BASOPHILS RELATIVE PERCENT 1 % (BEAKER) (test code = 437) NEUTROPHILS ABSOLUTE COUNT 2.52 K/ L 1.78-5.38 (BEAKER) (test code = 670) LYMPHOCYTES ABSOLUTE COUNT 1.64 K/ L 1.32-3.57 (BEAKER) (test code = 414) MONOCYTES ABSOLUTE COUNT (BEAKER) 0.35 K/ L 0.30-0.82 (test code = 415) EOSINOPHILS ABSOLUTE COUNT 0.33 K/ L 0.04-0.54 (BEAKER) (test code = 416) BASOPHILS ABSOLUTE COUNT (BEAKER) 0.03 K/ L 0.01-0.08 (test code = 417) IMMATURE GRANULOCYTES-RELATIVE 0 % 0-1 PERCENT (BEAKER) (test code = 2801) MR, SPINE, LUMBAR, WITHOUT [id number] 23:30:00Unlisted Reason for Exam - Click Yes and Enter Reason Below->NoDeos the patient have an implanted electronic device?->NoFINAL REPORT EXAM: MR, SPINE, THORACIC, WITHOUT CONTRAST, MR, SPINE, LUMBAR, WITHOUT CONTRAST 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 TECHNIQUE: Sagittal T1-, T2-, and T2-w fat-saturated images, and axial T1-w and T2-w images of the thoracic and lumbar spine. COMPARISON: 02/07/2013 CT abdomen/pelvis FINDINGS:THORACIC SPINE: Alignment: Normal Vertebral Bodies: Normal in height. No acute fracture. Marrow Signal: Expected. No suspicious lesion or marrow edema. Intervertebral Discs: Mild to moderate multilevel degenerative disc disease with height loss most notableat T5-T6, T6-T7, and T11-T12. Spinal cord: Normal Paraspinal Soft Tissues: Normal Individual Levels:Small central disc protrusion at T8-T9 contacting the ventral cord. No spinal canal or foraminal stenosis. LUMBAR SPINE: Spine Numbering: For purposes of this dictation, it is assumed that there are 5 hax-raw-uwnwuny, lumbar-type vertebrae, and the most caudal fully segmented lumbar vertebra is labeled L5. Alignment: No acute malalignment. Grade 1 anterolisthesis of L5 on S1 with associated bilateralpars interarticularis defects. Vertebral Bodies: No acute fracture. Vertebral body heights are preser baldemar. Marrow Signal: Expected. No inflammatory marrow signal or suspicious lesion. Intervertebral Discs: Disc desiccation without significant height loss at L5-S1. Conus Medullaris: Terminates at a normal level, L1. Cauda Equina: Normal Paraspinal Soft Tissues: Normal Individual Levels: T12-L1: No spinal canal or foraminal stenosis. L1-L2: No spinal canal or foraminal stenosis. L2- L3: No spinal canal or foraminal stenosis. L3-L4: No spinal canal or foraminal stenosis. L4-L5: No spinal canal or foraminal stenosis. L5-S1: Level of grade 1 anterolisthesis with unroofing of the posterior disc. There is small superimposed disc bulge with posterior annular fissure and mild bilateral facet arthropathy. No spinal canal. There is mild bilateral foraminal stenosis. IMPRESSION:1. No acute abnormality or significant stenosis of the thoracolumbar spine.2. Small central disc protrusion at T8-T9 contacting the ventral cord without spinal canal stenosis.3.At L5-S1 there is grade 1 anterolisthesis with bilateral spondylolysis, small disc bulge with posterior annular fissure, and modest degenerative changes resulting in mild bilateral foraminal stenosis. No high-grade stenosis. 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 TECHNIQUE: Sagittal T1-, T2-, and T2-w fat-saturated images, and axial T1-w and T2-w images of the thoracic and lumbar spine. COMPARISON: 02/07/2013 CT abdomen/pelvis FINDINGS:THORACIC SPINE: Alignment: Normal Vertebral Bodies: Normal in height. No acute fracture. Marrow Signal: Expected. No suspicious lesion or marrow edema. Intervertebral Discs: Mild to moderate multilevel degenerative disc disease with height loss most notableat T5-T6, T6-T7, and T11-T12. Spinal cord: Normal Paraspinal Soft Tissues: Normal Individual Levels:Small central disc protrusion at T8-T9 contacting the ventral cord. No spinal canal or foraminal stenosis. LUMBAR SPINE: Spine Numbering: For purposes of this dictation, it is assumed that there are 5 hay-qce-vhcxakh, lumbar-type vertebrae, and the most caudal fully segmented lumbar vertebra is labeled L5. Alignment: No acute malalignment. Grade 1 anterolisthesis of L5 on S1 with associated bilateralpars interarticularis defects. Vertebral Bodies: No acute fracture. Vertebral body heights are preserved. Marrow Signal: Expected. No inflammatory marrow signal or suspicious lesion. Intervertebral Discs: Disc desiccation without significant height loss at L5-S1. Conus Medullaris: Terminates at a normal level, L1. Cauda Equina: Normal Paraspinal Soft Tissues: Normal Individual Levels: T12-L1: No spinal canal or foraminal stenosis. L1-L2: No spinal canal or foraminal stenosis. L2-L3: No spinal canal or foraminal stenosis. L3-L4: No spinal canal or foraminal stenosis. L4-L5: No spinal canal or foraminal stenosis. L5-S1: Level of grade 1 anterolisthesis with unroofing of the posterior disc. There is small superimposed disc bulge with posterior annular fissure and mild bilateral facet arthropathy. No spinal canal. There is mild bilateral foraminal stenosis. IMPRESSION:1. No acute abnormality or significant stenosis of the thoracolumbar spine.2. Small central disc protrusion at T8-T9 contacting the ventral cord without spinal canal stenosis.3.At L5-S1 there is grade 1 anterolisthesis with bilateral spondylolysis, small disc bulge with posterior annular fissure, and modest degenerative changes resulting in mild bilateral foraminal stenosis. No high-grade stenosis. Signed: Gisella Puckett MDRort Verified Date/Time: 09/06/2020 23:30:49 Electronically signed by: GISELLA PUCKETT MD on 05/2020 11:30 PMMR thoracic spine without IV [id number] 23:30:00 Interface, External Ris In - 09/06/2020 11:33 PM CDTFINAL REPORT EXAM: MR, SPINE, THORACIC, WITHOUT CONTRAST, MR, SPINE, LUMBAR, WITHOUT CONTRAST CLINICAL INDICATION: Congenitalanomaly and back pain. TECHNIQUE: Sagittal T1-, T2-, and T2-w fat-saturated images, and axial T1-w and T2-w images of the thoracic and lumbar spine. COMPARISON: 02/07/2013 CT abdomen/pelvis FINDINGS:THORACIC SPINE: Alignment: Normal Vertebral Bodies: Normal in height. No acute fracture. Marrow Signal: Expected. No suspicious lesion or marrow edema. Intervertebral Discs: Mild to moderate multilevel degenerative disc disease with height loss most notable at T5-T6, T6-T7, and T11-T12. Spinal cord: Normal Paraspinal Soft Tissues: Normal Individual Levels: Small central disc protrusion at T8-T9 contacting the ventral cord. No spinal canal or foraminal stenosis. LUMBAR SPINE: Spine Numbering: For purposes of this dictation, it is assumed that there are 5 vrh-pnm-jkmzyus, lumbar-type vertebrae, and the most caudal fully segmented lumbar vertebra is labeled L5. Alignment: No acute malalignment. Grade 1 anterolisthesis of L5 on S1 with associated bilateral pars interarticularis defects. Vertebral Bodies:No acute fracture. Vertebral body heights are preserved. Marrow Signal: Expected. No inflammatory marrow signal or suspicious lesion. Intervertebral Discs: Disc desiccation without significant height loss at L5-S1. Conus Medullaris: Terminates at a normal level, L1. Cauda Equina: Normal Paraspinal Soft Tissues: Normal Individual Levels: T12-L1: No spinal canal or foraminal stenosis. L1-L2: No spinal canal or foraminal stenosis. L2-L3: No spinal canal or foraminal stenosis. L3-L4: No spinal canal or foraminal stenosis. L4-L5: No spinal canal or foraminal stenosis. L5-S1: Level of grade 1 anterolisthesis with unroofing of the posterior disc. There is small superimposed disc bulge with posterior annular fissure and mild bilateral facet arthropathy. No spinal canal. There is mild bilateral foraminal stenosis. IMPRESSION:1. No acute abnormality or significant stenosis of the thoracolumbar spine.2. Small central disc protrusion at T8-T9 contacting the ventral cord without spinal canal stenosis.3.At L5-S1 there is grade 1 anterolisthesis with bilateral spondylolysis, small disc bulge with posterior annular fissure, and modest degenerative changes resulting in mild bilateral foraminal stenosis.No high-grade stenosis. Signed: Gisella Puckett MDReport Verified Date/Time: 09/06/2020 23:30:49 [facility] 2020-09-06 23:30:00Interface, External Ris In - 09/06/2020 11:33 PM CDTFINAL REPORT EXAM: MR, SPINE, THORACIC, WITHOUT CONTRAST, MR, SPINE, LUMBAR, WITHOUT CONTRAST CLINICAL INDICATION: Congenitalanomaly and back pain. TECHNIQUE: Sagittal T1-, T2-, and T2-w fat-saturated images, and axial T1- w and T2-w images of the thoracic and lumbar spine. COMPARISON: 02/07/2013 CT abdomen/pelvis FINDINGS:THORACIC SPINE: Alignment: Normal Vertebral Bodies: Normal in height. No acute fracture. Marrow Signal: Expected. No suspicious lesion or marrow edema. Intervertebral Discs: Mild to moderate multilevel dege nerative disc disease with height loss most notable at T5-T6, T6-T7, and T11- T12. Spinal cord: Normal Paraspinal Soft Tissues: Normal Individual Levels: Small central disc protrusion at T8-T9 contacting the ventral cord. No spinal canal or foraminal stenosis. LUMBAR SPINE: Spine Numbering: For purposes of this dictation, it is assumed that there are 5 vld-dvi-qwfhqso, lumbar-type vertebrae, and the most caudal fully segmented lumbar vertebra is labeled L5. Alignment: No acute malalignment. Grade 1 anterolisthesis of L5 on S1 with associated bilateral pars interarticularis defects. Vertebral Bodies:No acute fracture. Vertebral body heights are preserved. Marrow Signal: Expected. No inflammatory marrow signal or suspicious lesion. Intervertebral Discs: Disc desiccation without significant height loss at L5-S1. Conus Medullaris: Terminates at a normal level, L1. Cauda Equina: Normal Paraspinal Soft Tissues: Normal Individual Levels: T12-L1: No spinal canal or foraminal stenosis. L1-L2: No spinal canal or foraminal stenosis. L2-L3: No spinal canal or foraminal stenosis. L3-L4: No spinal canalor foraminal stenosis. L4-L5: No spinal canal or foraminal stenosis. L5-S1: Level of grade 1 anterolisthesis with unroofing of the posterior disc. There is small superimposed disc bulge with posterior annular fissure and mild bilateral facet arthropathy. No spinal canal. There is mild bilateral foraminal stenosis. IMPRESSION:1. No acute abnormality or significant stenosis of the thoracolumbar spine.2. Small central disc protrusion at T8-T9 contacting the ventral cord without spinal canal stenosis.3.At L5-S1 there is grade 1 anterolisthesis with bilateral spondylolysis, small disc bulge with posterior annular fissure, and modest degenerative changes resulting in mild bilateral foraminal stenosis.No high-grade stenosis. Signed: Gisella Puckett MDReport Verified Date/Time: 09/06/2020 23:30:49 [facility] WITH [id number] 12:30:00chronic back pain, polysubstance abuse, possible previous diagnosis of hemochromatosis presents withacute liver failure after tylenol, cocaine and alcohol use.Reason for exam:->Evaluate for Ascites, Liver disease, and Hepatic Vasculature Portal VeinShould this be performed at the bedside?->YesFINAL REPORT HISTORY : Elevated LFTs. Evaluate for ascites, liver disease, and hepatic vasculature COMPARISON : None. COMMENT :Complete ultrasound examination of the abdomen with color Doppler and spectral evaluation of the abdominal vasculature was performed. The visualized pancreas appears unremarkable. The liver is normal in size measuring 14.7 cm in length. Hepatic echogenicity is within normal limits. No focal hepatic abnormalities are identified. The gallbladder is unremarkable. There is no intra or extra hepatic biliary ductal dilatation. The common bile duct measures 3 mm. Sonographic Hernandez's sign is negative. The spleen measures 12.6 cm in length and demonstratesan unremarkable sonographic appearance. The kidneys are normal in size measuring 11.4 cm in length on the right and 13.6 cm in length on the left. Cortical thickness/echogenicity is within normal limits. There is no evidence for solid renal mass, hydronephrosis, or shadowing calculi. There is no ascites present. Vascular:The main portal vein is patent with antegrade flow and diameter of 1.2 cm, within normal limits. Peak systolic velocity is 32.5 cm/s. The right left portal veins are patent with antegrade flow. The proper hepatic artery is patent with resistive indices of 0.6. The right left hepatic artery is are patent with resistive indices of 0.7 and 0.6. Arterial waveforms are within normal limits. The IVC is patent and unremarkable. The middle, right, left hepatic veins are patent and unremarkable. The visualized portions of the splenic artery and vein are patent. The aorta is normal in caliber. IMPRESSION : Unremarkable sonographic appearance of the liver without evidence for focal abnormality. No no ascites present. Unremarkable abdominal Doppler examination with patent hepatic vasculature. Signed: Erasto Martin MDReport Verified Date/Time: 09/06/2020 12:30:32 US abdominal with [id number] 12:30:00Interface, External Ris In - 09/06/2020 12:32 PM CDTFINAL REPORT HISTORY : Elevated LFTs. Evaluate for ascites, liver disease, and hepatic vasculature COMPARISON : None. COMMENT :Complete ultrasound examination of the abdomen with color Doppler and spectral evaluation of the abdominal vasculature was performed. The visualized pancreas appears unremarkable. The liver is normalin size measuring 14.7 cm in length. Hepatic echogenicity is within normal limits. No focal hepatic abnormalities are identified. The gallbladder is unremarkable. There is no intra or extra hepatic biliary ductal dilatation. The common bile duct measures 3 mm. Sonographic Hernandez's sign is negative. The spleen measures 12.6 cm in length and demonstrates an unremarkable sonographic appearance. The kidneys are normal in size measuring 11.4 cm in length on the right and 13.6 cm in length on the left. Cortical thickness/echogenicity is within normal limits. There is no evidence for solid renal mass, hydronephrosis, or shadowing calculi. There is no ascites present. Vascular:The main portal vein is patent with antegrade flow and diameter of 1.2 cm, within normal limits. Peak systolic velocity is 32.5 cm/s. The right left portal veins are patent with antegrade flow. The proper hepatic artery is patent with resistive indices of 0.6. The right left hepatic artery is are patent with resistive indices of 0.7 and 0.6. Arterial waveforms are within normal limits. The IVC is patent and unremarkable. The middle, right, left hepatic veins are patent and unremarkable. The visualized portions of the splenic artery and vein are patent. The aorta is normal in caliber. IMPRESSION : Unremarkable sonographic appearance of the liver without evidence for focal abnormality. No no ascites present. Unremarkable abdominal Doppler examination with patent hepatic vasculature. Signed: Erasto Martin MDReport Verified Ant e/Time: 09/06/2020 12:30:32 [facility]00 Test Item Value Reference Range Interpretation Comments Phosphorus (test code = 1.8 mg/dL 2.3-4.7 L 2777-1) CAMI (test code = CAMI) House Moving Supervisor ID - AMISHA C Lab Interpretation (test Abnormal code = 71644-7) [facility]2020-[facility]-07 09:07:00 Test Item Value Reference Range Interpretation Comments PHOSPHORUS (BEAKER) (test code = 1.8 mg/dL 2.3-4.7 L 604) House Moving Supervisor ID - AMISHA [id number]-1-[id number] 07:11:00 Test Item Value Reference Range Interpretation Comments A-1 Antitrypsin (test code 166.50 mg/dL 90-200 = 1825-9) CAMI (test code = CAMI) House Moving Supervisor ID Dana RYDER M Lab Interpretation (test Normal code = 45379-8) [facility]ALPHA-1-[id number] 07:11:00 Test Item Value Reference Range Interpretation Comments ALPHA-1 ANTITRYPSIN (BEAKER) 166.50 mg/dL 90.00-200.00 (test code = 502) House Moving Supervisor ID Dana RYDER MAlpha fetoprotein (AFP), tumor [id number] 07:07:00 Test Item Value Reference Range Interpretation Comments Alpha-Fetoprotein (test 6.3 ng/mL <10.0 code = 1834-1) CAMI (test code = CAMI) House Moving Supervisor ID - ALEKSEY M Lab Interpretation (test Normal code = 49913-6) [facility] FETOPROTEIN (AFP), TUMOR [id number] 07:07:00 Test Item Value Reference Range Interpretation Comments ALPHA-FETOPROTEIN (BEAKER) (test 6.3 ng/mL <10.0 code = 1094) House Moving Supervisor ID - ALEKSEY MHEPATIC FUNCTION [id number] 06:50:00 Test Item Value Reference Range Interpretation Comments TOTAL PROTEIN (BEAKER) (test code = 5.4 gm/dL 6.0-8.3 L 770) ALBUMIN (BEAKER) (test code = 1145) 3.3 g/dL 3.5-5.0 L BILIRUBIN TOTAL (BEAKER) (test code 2.7 mg/dL 0.2-1.2 H = 377) BILIRUBIN DIRECT (BEAKER) (test 1.7 mg/dL 0.1-0.5 H code = 706) ALKALINE PHOSPHATASE (BEAKER) (test 76 U/L 40-150 code = 346) AST (SGOT) (BEAKER) (test code = 1528 U/L 5-34 H 353) ALT (SGPT) (BEAKER) (test code = 2885 U/L 6-55 H 347) House Moving Supervisor ID - ALEKSEY MSpecimen slightly ictericBasic metabolic [id number] 06:48:00 Test Item Value Reference Range Interpretation Comments Sodium (test code = 139 meq/L 558-864 5772-2) Potassium (test code 3.5 meq/L 3.5-5.1 = 2823-3) Chloride (test code = 109 meq/L 98-107 H 2075-0) CO2 (test code = 22 meq/L 22-29 2028-9) BUN (test code = 11 mg/dL 7-21 3094-0) Creatinine (test code 0.63 mg/dL 0.57-1.25 = 2160-0) Glucose (test code = 97 mg/dL 70-105 2345-7) Calcium (test code = 7.7 mg/dL 8.4-10.2 L 95441-6) EGFR (test code = 143 mL/min/1.73 [place] [address]-6) NOT ACCURATE CREATININE CLEARANCE IN PREDICTING GLOMERULAR FILTRATION RATE . ESTIMATED GFR I S NOT APPLICABLE FOR DIALYSIS PATIENTS. CAMI (test code = CAMI) House Moving Supervisor ID - ALEKSEY MSpecimen slightly icteric Lab Interpretation Abnormal (test code = 27037-3) [facility]ABOLIC [id number] 06:48:00 Test Item Value Reference Range Interpretation Comments SODIUM (BEAKER) 139 meq/L 136-145 (test code = 381) POTASSIUM (BEAKER) 3.5 meq/L 3.5-5.1 (test code = 379) CHLORIDE (BEAKER) 109 meq/L 98-107 H (test code = 382) CO2 (BEAKER) (test 22 meq/L 22-29 code = 355) BLOOD UREA NITROGEN 11 mg/dL 7-21 (BEAKER) (test code = 354) CREATININE (BEAKER) 0.63 mg/dL 0.57-1.25 (test code = 358) GLUCOSE RANDOM 97 mg/dL 70-105 (BEAKER) (test code = 652) CALCIUM (BEAKER) 7.7 mg/dL 8.4-10.2 L (test code = 697) EGFR (BEAKER) (test 143 mL/min/1.73 ESTIM ATED GFR IS code = 1092) sq m NOT ACCURATE CREATININE CLEARANCE IN PREDICTING GLOMERULAR FILTRATION RATE . ESTIMATED GFR I S NOT APPLICABLE FOR DIALYSIS PATIEN TS. House Moving Supervisor ID - ALEKSEY MSpecimen slightly [id number] 06:40:00 Test Item Value Reference Range Interpretation Comments Magnesium (test code = 1.9 mg/dL 1.6-2.6 91160-0) CAMI (test code = CAMI) House Moving Supervisor ID - ALEKSEY M Lab Interpretation (test Normal code = 30509-7) [facility]MAGNESIUM2020-10-07 06:40:00 Test Item Value Reference Range Interpretation Comments MAGNESIUM (BEAKER) (test code = 1.9 mg/dL 1.6-2.6 627) House Moving Supervisor ID - ALEKSEY MProthrombin time/[id number] 06:02:00 Test Item Value Reference Range Interpretation Comments Protime (test code = 17.3 11.9- 14.2 H 5902-2) seconds INR (test code = 1.46 <=5.90 6301-6) CAMI (test code = CAMI) Effective 04/28/2019: PT Reference Range ChangeNew: 11.9-14.2 Previous: 11.7-14.7 RECOMMENDED COUMADIN/WARFARIN INR THERAPY RANGESSTANDARD DOSE: 2.0-3.0 Includes: PROPHYLAXIS for venous thrombosis, systemic embolization; TREATMENT for venous thrombosis and/or pulmonary embolus.HIGH RISK: Target INR is 2.5-3.5 for patients wiht mechanical heart valves. Lab Interpretation Abnormal (test code = 73261-0) [facility] HospitalPROTHROMBIN TIME/[id number] 06:02:00 Test Item Value Reference Range Interpretation Comments PROTIME (BEAKER) (test code = 17.3 seconds 11.9-14.2 H 759) INR (BEAKER) (test code = 370) 1.46 <=5.90 Effective 04/28/2019: PT Reference Range ChangeNew: 11.9-14.2 Previous: 11.7- 14.7RECOMMENDED COUMADIN/WARFARIN INR THERAPY RANGESSTANDARD DOSE: 2.0-3.0 Includes: PROPHYLAXIS for venous thrombosis, systemic embolization; TREATMENT for venous thrombosis and/or pulmonary embolus.HIGH RISK: Target INR is2.5-3.5 for patients wiht mechanical heart valves.CBC W/PLT COUNT & AUTO [id number] 05:59:00 Test Item Value Reference Range Interpretation Comments WHITE BLOOD CELL COUNT (BEAKER) 4.1 K/ L 3.5-10.5 (test code = 775) RED BLOOD CELL COUNT (BEAKER) 4.18 M/ L 4.63-6.08 L (test code = 761) HEMOGLOBIN (BEAKER) (test code = 12.8 GM/DL 13.7-17.5 L 410) HEMATOCRIT (BEAKER) (test code = 36.2 % 40.1-51.0 L 411) MEAN CORPUSCULAR VOLUME (BEAKER) 86.6 fL 79.0-92.2 (test code = 753) MEAN CORPUSCULAR HEMOGLOBIN 30.6 pg 25.7-32.2 (BEAKER) (test code = 751) MEAN CORPUSCULAR HEMOGLOBIN CONC 35.4 GM/DL 32.3-36.5 (BEAKER) (test code = 752) RED CELL DISTRIBUTION WIDTH 12.7 % 11.6-14.4 (BEAKER) (test code = 412) PLATELET COUNT (BEAKER) (test code 86 K/CU MM 150-450 L = 756) MEAN PLATELET VOLUME (BEAKER) 9.2 fL 9.4-12.4 L (test code = 754) NUCLEATED RED BLOOD CELLS (BEAKER) 0 /100 WBC 0-0 (test code = 413) NEUTROPHILS RELATIVE PERCENT 48 % (BEAKER) (test code = 429) LYMPHOCYTES RELATIVE PERCENT 41 % (BEAKER) (test code = 430) MONOCYTES RELATIVE PERCENT 4 % (BEAKER) (test code = 431) EOSINOPHILS RELATIVE PERCENT 6 % (BEAKER) (test code = 432) BASOPHILS RELATIVE PERCENT 1 % (BEAKER) (test code = 437) NEUTROPHILS ABSOLUTE COUNT 1.97 K/ L 1.78-5.38 (BEAKER) (test code = 670) LYMPHOCYTES ABSOLUTE COUNT 1.70 K/ L 1.32-3.57 (BEAKER) (test code = 414) MONOCYTES ABSOLUTE COUNT (BEAKER) 0.15 K/ L 0.30-0.82 L (test code = 415) EOSINOPHILS ABSOLUTE COUNT 0.25 K/ L 0.04-0.54 (BEAKER) (test code = 416) BASOPHILS ABSOLUTE COUNT (BEAKER) 0.03 K/ L 0.01-0.08 (test code = 417) IMMATURE GRANULOCYTES-RELATIVE 1 % 0-1 PERCENT (BEAKER) (test code = 2801) [id number] 19:28:00 Test Item Value Reference Range Interpretation Comments PHOSPHORUS (BEAKER) (test code = 1.0 mg/dL 2.3-4.7 LL 604) House Moving Supervisor ID - BSCOMPREHENSIVE METABOLIC [id number] 19:26:00 Test Item Value Reference Range Interpretation Comments TOTAL PROTEIN 6.1 gm/dL 6.0-8.3 (BEAKER) (test code = 770) ALBUMIN (BEAKER) 3.8 g/dL 3.5-5.0 (test code = 1145) ALKALINE PHOSPHATASE 90 U/L 40-150 (BEAKER) (test code = 346) BILIRUBIN TOTAL 2.3 mg/dL 0.2-1.2 H (BEAKER) (test code = 377) SODIUM (BEAKER) (test 137 meq/L 136-145 code = 381) POTASSIUM (BEAKER) 3.5 meq/L 3.5-5.1 (test code = 379) CHLORIDE (BEAKER) 105 meq/L 98-107 (test code = 382) CO2 (BEAKER) (test 22 meq/L 22-29 code = 355) BLOOD UREA NITROGEN 10 mg/dL 7-21 (BEAKER) (test code = 354) CREATININE (BEAKER) 0.92 mg/dL 0.57-1.25 (test code = 358) GLUCOSE RANDOM 100 mg/dL 70-105 (BEAKER) (test code = 652) CALCIUM (BEAKER) 8.3 mg/dL 8.4-10.2 L (test code = 697) AST (SGOT) (BEAKER) 3573 U/L 5-34 H (test code = 353) ALT (SGPT) (BEAKER) 3861 U/L 6-55 H (test code = 347) EGFR (BEAKER) (test 92 mL/min/1.73 ESTIMA ALONA GFR IS code = 1092) sq m NOT ACCURATE CREATININE CLEARANCE IN PREDICTING GLOMERULAR FILTRATION RATE . ESTIMATED GFR I S NOT APPLICABLE FOR DIALYSIS PATIEN TS. House Moving Supervisor ID - BSSpecimen slightly [id number] 19:25:00 Test Item Value Reference Range Interpretation Comments MAGNESIUM (BEAKER) (test code = 1.9 mg/dL 1.6-2.6 627) House Moving Supervisor ID - BSHEPATIC FUNCTION [id number] 08:55:00 Test Item Value Reference Range Interpretation Comments TOTAL PROTEIN (BEAKER) (test code = 6.0 gm/dL 6.0-8.3 770) ALBUMIN (BEAKER) (test code = 1145) 3.7 g/dL 3.5-5.0 BILIRUBIN TOTAL (BEAKER) (test code 1.5 mg/dL 0.2-1.2 H = 377) BILIRUBIN DIRECT (BEAKER) (test 1.1 mg/dL 0.1-0.5 H code = 706) ALKALINE PHOSPHATASE (BEAKER) (test 85 U/L 40-150 code = 346) AST (SGOT) (BEAKER) (test code = > U/L 5-34 H 353) ALT (SGPT) (BEAKER) (test code = 5435 U/L 6-55 H 347) House Moving Supervisor ID - EDASIOperator ID - AMISHA CSARS-CoV2/RT-PCR (Asymptomatic ONLY) 2020-09-05 08:46:00 Test Item Value Reference Range Interpretation Comments SARS-COV2/RT-PCR Negative Not Detected, (test code = Negative, See 16280-7) external report for linked test SARS-COV-2 [facility] PERFORMING LAB (test code = 16402-1) CAMI (test code = Negative result for this CAMI) test determines that SARS-CoV-2 RNA was not present in the specimen above the Limit of Detection (LOD). However, Negative results do not preclude SARS-CoV-2 infection and should not be used as the sole basis for treatment or patient management decisions. Negative results must be combined with clinical observations, patient history, and epidemiological information. A false negative result may occur if a specimen is improperly collected, transported or handled. A false negative result should be considered if patient's recent exposures or clinical presentation indicate that COVID-19 (SARS-CoV-2) is likely and diagnostic tests for other causes of illness are negative. Re-testing should be considered in cases of suspected [...] Food and Drug Administration (FDA) cleared or approved. This is a modified version of an approved [...] of the Act. Fact Sheet for Healthcare Providers:https://www.Celles/sites/default/f edna/product/documents/F act_Sheet_HC_Providers_L feu_FIXC-TdZ-0.pdf Fact Sheet for Healthcare Patients:https://www.Delectable/sites/default/fi les/product/documents/Fa ct_Sheet_Patients_Lyra_S ARS-CoV-2.pdf Performing Laboratory:[facility] [place] [address] [facility])2020-09-05 08:46:00 Test Item Value Reference Range Interpretation Comments SARS-COV2/RT-PCR (test Negative Not Detected, Negative, code = 4856733) See external report for linked test SARS-COV-2 PERFORMING LAB [facility] (test code = 4216303) Negative result for this test determines that SARS-CoV-2 RNA was not present in the specimen above the Limit of Detection (LOD). However, Negative results do not preclude SARS-CoV-2 infection and should not be used as the sole basis for treatment or patient management decisions. Negative results mustbe combined with clinical observations, patient history, and epidemiological information. A false negative result may occur if a specimen is improperly collected, transported or handled. A false negative result should be considered if patient's recent exposures or clinical presentation indicate that COVID-19 (SARS-CoV-2) is likely and diagnostic tests for other causes of illness are negative. Re-testing should be considered in cases of suspected false negatives.The limit of detection for this assay is 800 copies/mL.This SARS CoV-2 test is a real-time RT-PCR test intended for the qualitative detection of nucleic acid from SARS-CoV-2 in a nasopharyngeal swab specimen collected from individuals susp ected of COVID-19 by their healthcare provider.This test has not been Food and Drug Administration (FDA) cleared or approved. This is a modified version of an approved [...] is revoked under Section 564(g) of the Act.Fact Sheet for Healthcare Providers:https://www.[employer]antage Analyticsidel.com/sites/default/files/product/documents/Fact_Shee m_VU_Dnawhhnyx_Ybbd_OJWO-KnJ-5.pdfFact Sheet for Healthcare Patients:https://www.[employer].com/sites/default/files/product/ documents/Vyos_Ftaye_Muapmyhs_Ezbw_AAIK-FqM-1.pdfPerforming Laboratory:[facility], [place] [id number] 07:19:00 Test Item Value Reference Range Interpretation Comments PHOSPHORUS (BEAKER) (test code = 1.7 mg/dL 2.3-4.7 L 604) House Moving Supervisor ID - [id number] 07:19:00 Test Item Value Reference Range Interpretation Comments MAGNESIUM (BEAKER) (test code = 2.0 mg/dL 1.6-2.6 627) House Moving Supervisor ID - EDASIBASIC METABOLIC [id number] 07:19:00 Test Item Value Reference Range Interpretation Comments SODIUM (BEAKER) 139 meq/L 136-145 (test code = 381) POTASSIUM (BEAKER) 3.3 meq/L 3.5-5.1 L (test code = 379) CHLORIDE (BEAKER) 108 meq/L 98-107 H (test code = 382) CO2 (BEAKER) (test 22 meq/L 22-29 code = 355) BLOOD UREA NITROGEN 13 mg/dL 7-21 (BEAKER) (test code = 354) CREATININE (BEAKER) 0.76 mg/dL 0.57-1.25 (test code = 358) GLUCOSE RANDOM 103 mg/dL 70-105 (BEAKER) (test code = 652) CALCIUM (BEAKER) 8.1 mg/dL 8.4-10.2 L (test code = 697) EGFR (BEAKER) (test 115 mL/min/1.73 ESTIM ATED GFR IS code = 1092) sq m NOT ACCURATE CREATININE CLEARANCE IN PREDICTING GLOMERULAR FILTRATION RATE . ESTIMATED GFR I S NOT APPLICABLE FOR DIALYSIS PATIEN TS. House Moving Supervisor ID - [id number] 06:42:00 Test Item Value Reference Range Interpretation Comments Ferritin (test code = 96407.89 ng/mL 5-275 H 2276-4) CAMI (test code = CAMI) House Moving Supervisor ID - EDASI Lab Interpretation (test Abnormal code = 51541-5) [facility] 06:42:00 Test Item Value Reference Range Interpretation Comments FERRITIN (BEAKER) (test code = 04570.89 ng/mL 5.00-275.00 H 361) House Moving Supervisor ID - EDASIPROTHROMBIN TIME/[id number] 05:57:00 Test Item Value Reference Range Interpretation Comments PROTIME (BEAKER) (test code = 22.9 seconds 11.9-14.2 H 759) INR (BEAKER) (test code = 370) 2.08 <=5.90 Effective 04/28/2019: PT Reference Range ChangeNew: 11.9-14.2 Previous: 11.7- 14.7RECOMMENDED COUMADIN/WARFARIN INR THERAPY RANGESSTANDARD DOSE: 2.0-3.0 Includes: PROPHYLAXIS for venous thrombosis, systemic embolization; TREATMENT for venous thrombosis and/or pulmonary embolus.HIGH RISK: Target INR is2.5-3.5 for patients wiht mechanical heart valves.Iron, TIBC, % sat. (without ferritin) 2020-09-05 05:47:00 Test Item Value Reference Range Interpretation Comments Iron (test code = 2498-4) 129.0 ug/dL 40-160 TIBC (test code = 2500-7) 210 ug/dL 250-450 L Iron % Saturation (test 61 % 20-55 H code = 2502-3) CAMI (test code = CAMI) House Moving Supervisor ID - EDASI Lab Interpretation (test Abnormal code = 97847-6) [facility], [facility]. (WITHOUT FERRITIN)2020-09-05 05:47:00 Test Item Value Reference Range Interpretation Comments IRON (BEAKER) (test code = 547) 129.0 ug/dL 40.0-160.0 TOTAL IRON BINDING CAPACITY 210 ug/dL 250-450 L (BEAKER) (test code = 769) IRON % SATURATION (2) (BEAKER) 61 % 20-55 H (test code = 2590) House Moving Supervisor ID - EDASICBC W/PLT COUNT & AUTO [id number] 05:43:00 Test Item Value Reference Range Interpretation Comments WHITE BLOOD CELL COUNT (BEAKER) 3.8 K/ L 3.5-10.5 (test code = 775) RED BLOOD CELL COUNT (BEAKER) 4.86 M/ L 4.63-6.08 (test code = 761) HEMOGLOBIN (BEAKER) (test code = 14.3 GM/DL 13.7-17.5 410) HEMATOCRIT (BEAKER) (test code = 41.9 % 40.1-51.0 411) MEAN CORPUSCULAR VOLUME (BEAKER) 86.2 fL 79.0-92.2 (test code = 753) MEAN CORPUSCULAR HEMOGLOBIN 29.4 pg 25.7-32.2 (BEAKER) (test code = 751) MEAN CORPUSCULAR HEMOGLOBIN CONC 34.1 GM/DL 32.3-36.5 (BEAKER) (test code = 752) RED CELL DISTRIBUTION WIDTH 12.6 % 11.6-14.4 (BEAKER) (test code = 412) PLATELET COUNT (BEAKER) (test code 78 K/CU MM 150-450 L = 756) MEAN PLATELET VOLUME (BEAKER) 8.9 fL 9.4-12.4 L (test code = 754) NUCLEATED RED BLOOD CELLS (BEAKER) 0 /100 WBC 0-0 (test code = 413) NEUTROPHILS RELATIVE PERCENT 72 % (BEAKER) (test code = 429) LYMPHOCYTES RELATIVE PERCENT 23 % (BEAKER) (test code = 430) MONOCYTES RELATIVE PERCENT 3 % (BEAKER) (test code = 431) EOSINOPHILS RELATIVE PERCENT 0 % (BEAKER) (test code = 432) BASOPHILS RELATIVE PERCENT 0 % (BEAKER) (test code = 437) NEUTROPHILS ABSOLUTE COUNT 2.73 K/ L 1.78-5.38 (BEAKER) (test code = 670) LYMPHOCYTES ABSOLUTE COUNT 0.87 K/ L 1.32-3.57 L (BEAKER) (test code = 414) MONOCYTES ABSOLUTE COUNT (BEAKER) 0.13 K/ L 0.30-0.82 L (test code = 415) EOSINOPHILS ABSOLUTE COUNT 0.00 K/ L 0.04-0.54 L (BEAKER) (test code = 416) BASOPHILS ABSOLUTE COUNT (BEAKER) 0.01 K/ L 0.01-0.08 (test code = 417) IMMATURE GRANULOCYTES-RELATIVE 1 % 0-1 PERCENT (BEAKER) (test code = 2801) HEPATIC FUNCTION [id number] 03:06:00 Test Item Value Reference Range Interpretation Comments TOTAL PROTEIN (BEAKER) 6.4 gm/dL 6.0-8.3 (test code = 770) ALBUMIN (BEAKER) (test 3.9 g/dL 3.5-5.0 code = 1145) BILIRUBIN TOTAL (BEAKER) 1.6 mg/dL 0.2-1.2 H (test code = 377) BILIRUBIN DIRECT 1.1 mg/dL 0.1-0.5 H (BEAKER) (test code = 706) ALKALINE PHOSPHATASE 86 U/L 40-150 (BEAKER) (test code = 346) AST (SGOT) (BEAKER) > U/L 5-34 H AVM=8257 U/L (by (test code = 353) dilution) ALT (SGPT) (BEAKER) 5184 U/L 6-55 H (test code = 347) House Moving Supervisor ID - BRIANDA LOperator ID - EDASIOperator ID - EDASIOperator ID - EDASI [id number] 23:53:00 Test Item Value Reference Range Interpretation Comments MAGNESIUM (BEAKER) (test code = 2.0 mg/dL 1.6-2.6 627) House Moving Supervisor ID - BRIANDA LHepatitis B [id number] 23:51:00 Test Item Value Reference Range Interpretation Comments Hep B Core Total Ab Reactive Nonreactive A (test code = 14937-5) Hep B S Ab (test code = 1258.6 <8.0 mIU/mL H 74113-8) HBsAg Screen (test code Nonreactive Nonreactive = 5195-3) CAMI (test code = CAMI) House Moving Supervisor ID - BRIANDA L Lab Interpretation (test Abnormal code = 55645-9) [facility] B [id number] 23:51:00 Test Item Value Reference Range Interpretation Comments HEPATITIS B CORE TOTAL ANTIBODY Reactive Nonreactive A (BEAKER) (test code = 497) HEPATITIS B SURFACE ANTIBODY 1258.6 mIU/mL <8.0 H (BEAKER) (test code = 647) HEPATITIS B SURFACE ANTIGEN (2) Nonreactive Nonreactive (BEAKER) (test code = 2585) House Moving Supervisor ID - BRIANDA LHepatitis C [id number] 23:48:00 Test Item Value Reference Range Interpretation Comments Hepatitis C Ab (test Nonreactive Nonreactive code = 64575-9) CAMI (test code = CAMI) House Moving Supervisor ID - PIMICHA L Lab Interpretation (test Normal code = 20536-3) [facility] [id number] 23:48:00 Test Item Value Reference Range Interpretation Comments Hep A IgM (test code = Nonreactive Nonreactive 06284-7) Hep A IgG (test code = Nonreactive Nonreactive 14214-4) CAMI (test code = CAMI) House Moving Supervisor ID - PIAYA L Lab Interpretation (test Normal code = 74465-1) [facility] [id number] 23:48:00 Test Item Value Reference Range Interpretation Comments HEPATITIS C ANTIBODY (BEAKER) Nonreactive Nonreactive (test code = 367) House Moving Supervisor JOSE LUIS LAMAR LHEPATITIS A [id number] 23:48:00 Test Item Value Reference Range Interpretation Comments HEPATITIS A IGM ANTIBODY (BEAKER) Nonreactive Nonreactive (test code = 498) HEPATITIS A IGG ANTIBODY (BEAKER) Nonreactive Nonreactive (test code = 2797) House Moving Supervisor JOSE LUIS LAMAR LBASIC METABOLIC [id number] 23:28:00 Test Item Value Reference Range Interpretation Comments SODIUM (BEAKER) 136 meq/L 136-145 (test code = 381) POTASSIUM (BEAKER) 3.4 meq/L 3.5-5.1 L (test code = 379) CHLORIDE (BEAKER) 107 meq/L 98-107 (test code = 382) CO2 (BEAKER) (test 18 meq/L 22-29 L code = 355) BLOOD UREA NITROGEN 12 mg/dL 7-21 (BEAKER) (test code = 354) CREATININE (BEAKER) 0.75 mg/dL 0.57-1.25 (test code = 358) GLUCOSE RANDOM 130 mg/dL 70-105 H (BEAKER) (test code = 652) CALCIUM (BEAKER) 8.2 mg/dL 8.4-10.2 L (test code = 697) EGFR (BEAKER) (test 117 mL/min/1.73 ESTIM ATED GFR IS code = 1092) sq m NOT ACCURATE CREATININE CLEARANCE IN PREDICTING GLOMERULAR FILTRATION RATE . ESTIMATED GFR I S NOT APPLICABLE FOR DIALYSIS PATIEN TS. House Moving Supervisor JOSE LUIS LAMAR LPROTHROMBIN [id number] 23:04:00 Test Item Value Reference Range Interpretation Comments PROTIME (BEAKER) (test code = 24.4 seconds 11.9-14.2 H 759) INR (BEAKER) (test code = 370) 2.26 <=5.90 Effective 04/28/2019: PT Reference Range ChangeNew: 11.9-14.2 Previous: 11.7- 14.7RECOMMENDED COUMADIN/WARFARIN INR THERAPY RANGESSTANDARD DOSE: 2.0-3.0 Includes: PROPHYLAXIS for venous thrombosis, systemic embolization; TREATMENT for venous thrombosis and/or pulmonary embolus.HIGH RISK: Target INR is2.5-3.5 for patients wiht mechanical heart valves.CBC W/PLT COUNT & AUTO [id number] 22:45:00 Test Item Value Reference Range Interpretation Comments WHITE BLOOD CELL COUNT (BEAKER) 6.9 K/ L 3.5-10.5 (test code = 775) RED BLOOD CELL COUNT (BEAKER) 4.96 M/ L 4.63-6.08 (test code = 761) HEMOGLOBIN (BEAKER) (test code = 15.0 GM/DL 13.7-17.5 410) HEMATOCRIT (BEAKER) (test code = 43.5 % 40.1-51.0 411) MEAN CORPUSCULAR VOLUME (BEAKER) 87.7 fL 79.0-92.2 (test code = 753) MEAN CORPUSCULAR HEMOGLOBIN 30.2 pg 25.7-32.2 (BEAKER) (test code = 751) MEAN CORPUSCULAR HEMOGLOBIN CONC 34.5 GM/DL 32.3-36.5 (BEAKER) (test code = 752) RED CELL DISTRIBUTION WIDTH 12.7 % 11.6-14.4 (BEAKER) (test code = 412) PLATELET COUNT (BEAKER) (test code 82 K/CU MM 150-450 L = 756) MEAN PLATELET VOLUME (BEAKER) 9.0 fL 9.4-12.4 L (test code = 754) NUCLEATED RED BLOOD CELLS (BEAKER) 0 /100 WBC 0-0 (test code = 413) NEUTROPHILS RELATIVE PERCENT 88 % (BEAKER) (test code = 429) LYMPHOCYTES RELATIVE PERCENT 9 % (BEAKER) (test code = 430) MONOCYTES RELATIVE PERCENT 3 % (BEAKER) (test code = 431) EOSINOPHILS RELATIVE PERCENT 0 % (BEAKER) (test code = 432) BASOPHILS RELATIVE PERCENT 0 % (BEAKER) (test code = 437) NEUTROPHILS ABSOLUTE COUNT 6.09 K/ L 1.78-5.38 H (BEAKER) (test code = 670) LYMPHOCYTES ABSOLUTE COUNT 0.60 K/ L 1.32-3.57 L (BEAKER) (test code = 414) MONOCYTES ABSOLUTE COUNT (BEAKER) 0.18 K/ L 0.30-0.82 L (test code = 415) EOSINOPHILS ABSOLUTE COUNT 0.00 K/ L 0.04-0.54 L (BEAKER) (test code = 416) BASOPHILS ABSOLUTE COUNT (BEAKER) 0.02 K/ L 0.01-0.08 (test code = 417) IMMATURE GRANULOCYTES-RELATIVE 1 % 0-1 PERCENT (BEAKER) (test code = 2801) CT ABDOMEN/PELVIS [id number] 15:41:[address] [id number] IMAGING REPORTPatient Name: Dharmesh PHILIP of Service: [id number]: 36 Sex: M Order #: [id number] Room: ERSDOB:1980 X-Ray Number: [id number] Record Number: [id number] Hospital Number: [id number] Physician: ESTELA TELLEZ TANOrdering Physician: RUPERTO KC ABDOMEN AND PELVIS WITH CONTRAST:CLINICAL HISTORY: Pain in the left lower rib cage/upper abdomen post traumaTECHNIQUE: Examination is p erformed following intravenous administration of100 mL of Isovue-300. 4 mm axial sections were obtained with coronal andsagittal reconstructions.This CT exam was performed using one or more of the following dosereduction techniques: Automated exposure control, adjustment of the MA andor KV according to patient size or use of iterative reconstructiontechnique.FINDINGS: The enhanced liver, spleen, panc reas, adrenals, kidneys, uretersand bladder oral normal.The retrocecal appendix is normal. The bowelloops are unremarkable.There is no evidence of free air or ascites.There is no evidence of a soft tissue hematoma.The lower rib cage, lumbar spine and bony pelvis are normal.Impression: Normal CT scan abdomen and pelvisElectronically Signed By: Giovanni Altman M.D., 04/16/2017 3:39 PMLegally authenticated by DEMARCO Merlos 2017-04-16 15:39:04CT THORAX [id number] 15:39:[address] [id number] IMAGING REPORTPatient Name: Dharmesh PHILIP of Service: [id number]: 36 Sex: M Order #: [id number] Room: ERSDOB: 1980 X-Ray Number: [id number] Record Number: [id number] Hospital Number: [id number] Physician: ESTELA TELLEZ TANOrdering Physician: RUPERTO KC [...]
== END 2020-09-04 18:19 | disposition short-term general hospital (02) ==
LOC: ER 13:04
DX: K72.90 Hepatic failure, unspecified without coma (principal); R94.31 Abnormal electrocardiogram [ECG] [EKG]; G89.29 Other chronic pain; F17.210 Nicotine dependence, cigarettes, uncomplicated
CPT/HCPCS: 36415; 74177; 76705; 80048; 80076; 80307; 80320; 80329; 81003; 81015; 82550; 82565; 83690; 83735; 84484; 85025; 85610; 85730; 87086; 87088; 93005; 96361; 96365; 96375; 99285; J0132; J2270; J2405; J2550; J7030; J7060; Q9967

== ENCOUNTER 2021-05-07 15:51 | Emergency (ER) | payer OTHER, SELFPAY ==
--- OUTSIDE RECORDS SUMMARY | 2021-05-07 15:55 | XMS REPORT | Continuity of Care Document ---
:1980 Author Organization [facility] t Address [address] [place] [address] Care Team Providers Name Role Phone Noemi Richmond Primary Care Physician John Nowak MD Attending Clinician [phone] Braeden BANUELOS Attending Clinician Michael BANUELOS, P. Attending Clinician Terrance Frankel MD Attending Clinician JOHN NOWAK Attending Clinician Unavailable Magdaleno Lyons MD Attending Clinician BRAEDEN Admitting Clinician Unavailable Payers Payer Name Policy Policy Effective Expiration Source Type Number Date Date INTERNATIONALENDOSCOPY [address] [id number] Problems Condition Condition Condition Status Onset Resolution Last Treating Co mments Source Name Details Category Date Date Treatment Clinician Date Acute Acute Disease Active 2019-[address] [facility] liver liver 0-05 [facility] - failure failure 00:00: [place] [id number] Center Cigarette Cigarette Problem Active [facility] [...] 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[facility] deficiency deficiency Mi kes - Memoria l [facility] 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 Mi kes - ia ia Memoria l [facility] Other Other Problem Active [facility] hemoglobin hemoglobin Mi kes - opathies opathies Memori a l [facility]ics Gastroesop Gastroesop Problem Active C [...] Active [facility] Environmen Environmen Problem Active [facility] mari mari [facility] - allergies allergies Marino loren l [facility] Seasonal Seasonal Problem Active [facility] allergic allergic [facility] - rhinitis rhinitis Memori a due to due to l pollen pollen [facility] Family Family Problem Active [facility] history of history of Mi kes - hemochroma hemochroma Me moria tosis tosis l [facility] Pain of Pain of Problem Active [facility] left foot left foot Luke s - Memoria l [facility]ics 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[facility] - herniation herniation Me moria l [facility] Pain in Pain in Problem Active [facility] right foot right foot Mi kes - Memoria l [facility] Spondylosi 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[facility] of s of [facility] - lumbar lumbar Memoria spine spine l [facility] Clinics Unspecifie Unspecifie Problem Active [facility] - thoracic, thoracic, Marino loren thoracolum thoracolum l bar and bar and Outpati lumbosacra lumbosacra en t l l Clinics interverte 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 Drug abuse Drug abuse Problem Active [facility] Generalize Generalize Problem Active [facility] - abdominal abdominal Marino loren pain pain l [facility]ics Dehydratio Dehydratio Problem Active [facility] - Memoria l [facility] Drug Drug Problem Active [facility] abuse, abuse, [facility] - cocaine cocaine Memoria type type l [facility] Weight Weight Diagnosis Active [facility] loss loss [facility] - Memoria l [facility] Bowel Bowel Problem Active [facility] habit habit [facility] - changes changes Memoria l [facility] Rectal Rectal Problem Active [facility] bleeding bleeding [facility] - Memoria l [facility] Rectal Rectal Problem Active [facility] pain pain [facility] - Memoria l [facility] Allergies, Adverse Reactions, Alerts Allergy Allergy Status Severity Reaction(s) Onset Inactive Treating Comm ents Source Name Type Date Date Clinician mucomyst Adverse Active Info Not [facility] Reaction Available [facility]oria [facility] Social History Social Habit Start Date Stop Date Quantity Comments Source Sex Assigned At [facility] Cigarettes smoked 2020-09-04 2020-09-[address] [facility] - current (pack per 00:00:00 00:00:00 [facility] Center day) - Reported Tobacco use and 2020-09-04 2020-09-[address] Mi kes - exposure 00:00:00 00:00:00 [facility] Alcohol intake 2020-09-04 2020-09-04 Current [facility]er [facility] - 00:[facility]:00 00:00:00 of [facility] (finding) Alcohol Comment 2018-03-05 2018-03-05 6 pack a month [facility] - 00:00:00 00:00:00 [facility] Smoking Status Start Date Stop Date Source Current every day smoker 2020-09-04 00:00:00 [facility] Medications Ordered Filled Start Stop Current Ordering Indication Dosage Frequency Signature Comments Components Source Medication Medication Date Date Medication? Clinician (SIG) Name Name Gabapentin Gabapentin Yes Sarah [address] [facility] [place] [facility] - 00[facility]: [facility] Ondansetron Ondansetron Yes Sarah [address] [facility] [place] on the [facility] - 00:00: tongue and Memoria 00 allow to l dissolve [facility] as needed ent Clinics Escitalopra Escitalopra Yes Sarah [address] [address] m Oxalate m Oxalate [place] [facility] - Memoria l [facility] ent Clinics Ibuprofen Ibuprofen Yes Sarah [address] [facility] [place] with food [facility] - or milk as Memoria needed l [facility] Clinics Omeprazole Omeprazole Yes Sarah [address] [facility] [place] 30 minutes [facility] - before Memoria morning l meal [facility] ent Clinics Tylenol Tylenol Yes Sarah 1 tablet [facility] [place] as needed [facility] - Memoria l [facility] ent Clinics Vital Signs Vital Name Observation Time Observation Value Comments Source Systolic blood 2020-09-07 21:37:00 138 mm[Hg] [facility] Diastolic blood 2020-09-07 21:37:00 70 mm[Hg] [facility] Heart rate 2020-09-07 21:37:00 82 /min [facility] Respiratory rate 2020-09-07 21:37:00 19 /min [facility] Oxygen saturation in 2020-09-07 21:37:00 95 /min [facility] Arterial blood by Medical Ce nter Pulse oximetry Body temperature 2020-09-07 20:05:00 36.94 Dorcas [facility] Body weight 2020-09-07 06:13:00 100.8 kg [facility] BMI 2020-09-07 06:13:00 29.32 kg/m2 [facility] Body height 2020-09-04 19:47:00 185.4 cm [facility] Procedures Procedure Date / Time Performing Clinician Source Performed PROTHROMBIN TIME/INR 2020-09-07 11:01:00 Dima Elias [facility] HEPATIC FUNCTION PANEL 2020-09-07 05:21:00 Jefferson Deras [facility] CBC W/PLT COUNT & AUTO 2020-09-07 05:21:00 Isela Frankel [facility] COMPREHENSIVE METABOLIC 2020-09-07 05:21:[address] [facility] PHOSPHORUS 2020-09-07 05:21:00 Dima Elias [facility] MR THORACIC SPINE WITHOUT 2020-09-06 20:31:00 Isela Frankel [facility] IV CONTRAST [facility] MR LUMBAR SPINE WITHOUT IV 2020-09-06 19:55:00 Isela Frankel [facility] US ABDOMINAL WITH DOPPLER 2020-09-06 12:16:00 Dima Elias [facility] BASIC METABOLIC PANEL (7) 2020-09-06 05:39:00 [facility] HEPATIC FUNCTION PANEL 2020-09-06 05:39:00 [facility] MAGNESIUM 2020-09-06 05:39:00 [facility] PROTHROMBIN TIME/INR 2020-09-06 05:39:00 [facility] ALPHA FETOPROTEIN (AFP), 2020-09-06 05:39:00 [facility] T[facility]ER [facility] [id number]\, 2020-09-06 05:39:00 Dima Elias [facility] PHOSPHORUS 2020-09-06 05:39:00 Dima Elias [facility] CBC W/PLT COUNT & AUTO 2020-09-06 05:38:00 [facility] HEREDITARY HEMOCHROMATOSIS 2020-09-06 05:38:00 Dima Elias [facility] COMPREHENSIVE METABOLIC 2020-09-05 18:54:00 Jacqui Rodriguez [facility] PHOSPHORUS 2020-09-05 18:54:00 Jacqui Rodriguez [facility] MAGNESIUM 2020-09-05 18:54:00 Jacqui Rodriguez [facility] IRON, TIBC, % SAT. 2020-09-05 05:20:00 [facility] (WITHOUT FERRITIN) [facility] Cente r FERRITIN 2020-09-05 05:20:00 [facility] BASIC METABOLIC PANEL (7) 2020-09-05 05:20:00 [facility] HEPATIC FUNCTION PANEL 2020-09-05 05:20:00 [facility] MAGNESIUM 2020-09-05 05:20:00 [facility] PHOSPHORUS 2020-09-05 05:20:00 [facility] PROTHROMBIN TIME/INR 2020-09-05 05:20:00 [facility] CBC W/PLT COUNT & AUTO 2020-09-05 05:20:00 [facility] SARS-COV2/RT-PCR ([facility] & 2020-09-04 22:16:00 [facility] BASIC METABOLIC PANEL (7) 2020-09-04 22:15:00 [facility] HEPATIC FUNCTION PANEL 2020-09-04 22:15:00 [facility] MAGNESIUM 2020-09-04 22:15:00 [facility] PROTHROMBIN TIME/INR 2020-09-04 22:15:00 [facility] CBC W/PLT COUNT & AUTO 2020-09-04 22:15:00 [facility] HEPATITIS B PANEL 2020-09-04 22:15:00 [facility] HEPATITIS C ANTIBODY 2020-09-04 22:15:00 [facility] HEPATITIS A PANEL 2020-09-04 22:15:00 [facility] HEPATITIS E ABS IGG/IGM 2020-09-04 22:15:[address] [facility] I [facility] REPORT OF PROCEDURE - 2020-09-04 00:00:00 Provider, Bonilla [facility] - ENDOSCOPY SCAN Scanning [facility] Plan of Care Planned Activity Planned Date Details Comments Source Future Scheduled 2021-08-01 INFLUENZA VACCINE [facility] Test 00:00:00 (Season Ended) [code = [facility] INFLUENZA VACCINE (Season Ended)] Future Scheduled [address] [facility] [facility] Test 00:[facility]00 (procedure) [code = Medical Center [id number]] Future Scheduled 2000 DTAP/TDAP/TD VACCINES [facility] Test 00:00:00 (1 - Tdap) [code = Medical C enter DTAP/TDAP/TD VACCINES (1 - Tdap)] Future Scheduled [address] [facility] - Test 00:00:00 0-64 YRS (1 of 1 - Medical C enter PPSV23) [code = PNEUMOCOCCAL VACCINE 0-64 YRS (1 of 1 - PPSV23)] Encounters Start End Encounter Admission Attending Care Care Encounter Source Date/Time Date/Time Type Type Clinicians Facility Department ID 2020-04-26 2020-04-26 Outpatient Sheron Hammonds [id number] 09:40:00 09:40:00 [facility] 2020-03-20 2020-03-20 Outpatient Sheron Holbrookt [id number] 10:13:00 10:13:00 [facility] 2020-02-07 2020-02-07 Office Serena [facility] [id number] 13:45:31 14:38:53 Visit Porfirio AMBULATOR [id number] Magdaleno Y [id number] 2020-01-31 2020-01-31 Outpatient Sheron Holbrookt [id number] 13:20:00 13:20:00 [facility] Outpati ent Clinics 2020-01-06 2020-01-06 [place] [id number] 16:00:00 16:00:00 [facility] Outpati ent Clinics 2018-11-09 2018-11-09 [place] [id number] 15:25:00 15:25:00 [facility] Clin[facility] 2018-11-09 2018-11-09 [place] [id number] 15:17:00 15:17:00 [facility] 2018-07-22 2018-07-22 Outpatient Sheron Hammonds [id number] 13:30:00 13:30:00 [facility] 2018-04-29 2018-04-29 [place]patient [place] [id number] 09:50:00 09:50:00 [facility] 2018-04-20 2018-04-20 [place]patient [place] [id number] 14:05:00 14:05:00 [facility] 2018-04-20 2018-04-20 Outpatient Sheron Hammonds [id number] 08:30:00 08:30:00 [facility] Results Test Description Test Time Test Comments Results Result Comments Source HEREDITARY HEMOCHROMATOSIS 2020-09-12 11:27:00 Test Item Value Reference Range Interpretation Comme nts DNA SEE BELOW RESULT: POSITIV E FOR ONE HFE GENE PATHOGENIC VARIANT: C282Y Mutation (HETEROZYGOTE) Interpretation: One copy of the C282Y pathogenic Analysis variant in the HFE gene wasdetected. This patient is negative (test for the H63D pa thogenic variant.Individuals with this genotype code = may have elevat ed serum transferrin ironsaturation levels. This [id number]) result reduces the likelihood of hereditaryhemochromatosis (HH). However, it does not rule out the presence of otherpathogenic variants within the HFE gene or a diagnosis of HH. The risk of this individual to carry an HFE pathogenic variant other t roberto those tested inthis assay depends greatly on family and clin ical history as well asethnicity. This assay does not test f or other primary or secondary ironoverload disorders. Cons ider genetic counseling and DNA testing for at-riskfamitomasz lee. Laboratory results and submitted clinical inform ation reviewed by Osmar Fowler, PhD, FAC, [facility]. DETAILED ASSAY INFORMATION: Hereditary hemochromatosis (HH) is an autosomalrecessive disorder of iron metabolism that can result in iron overload andpotential organ failure. It is one of the most common genetic disorders inindividuals o f - ancestry, with an estimated carrierfrequenc y of 10%. HH is caused by pathogenic variants in the HFE gene. M ostindividuals with HH (60-90%) are homozygous for the C282Y p athogenic variant.A smaller percentage of affected indivi duals are either compoundheterozygous for the C282Y and H63D pathogenic variants (3%-8%), orhomozygous for the H63D pathog enic variant (approximately 1%). METHODOLOGY: This assay dete cts two pathogenic variants in the HFE gene,C282Y (NM 910966.2: c.845G>A, p.Wmn603Rml) and H63D (NM 466928.2: c.187 C>G,p.Hfo51Dqg), that are commonly associated with HH. These variants aredetected by multiplex-polymerase chain reaction (PCR) amplification, followedby restriction enzyme digestio n and capillary electrophoresis. LIMITATIONS: This assay does not detect other pathogenic variants in the HFEgene that ma y be associated with HH. Although rare, false positive or fal senegative results may occur. All results should be interpreted in the contextof clinical findings, relevant history, and ot her laboratory data. Health care providers, please contact your local [facility]' geneticcounselor or call [phone] ( ) for assistance with theinterpretati on of these results. This test was developed and its analytical performance characteristics havebeen determined by [facility].It has not been cl eared or approved by FDA. This assay has been validatedpursua nt to the CLIA regulations and is used for clinical purpos es. For more information, please refer [email or web address] [email or web address]/[email or web address](This link is being p rovided for informational/educational purposes only.) CAMI (test Performing code = Lab EZ CAMI) [facility] [address] [place] [address] Gerardo Arnold MD, PhD, LITO [facility]/IGM [id number] 10:57:00 Test Item Value Reference Interpretation Comments Range HEV IgG NOT DETECTED (test code = 2647) HEV IgM NOT DETECTED REFERENCE RANGE : NOT DETECTED (test Hepatitis E vir us (HEV) is a code = major cause melly nteric non-A 2648) hepatitis world wide. Both HEV IgMand IgG are typically detected within one monthafter infection; IgM persists for about twomonths , whereas IgG levels persist for months toyears after r ecovery. Approximately 2 0% of the USpopulation is positive for HEV IgG, indica tingthat HEV exposure is mor e common than previouslythoug ht. This test was d chiquisoped and its analytical performancechar acteristics have been determined by [facility]. It has not been cleared or approved byA. This assay has been validated pursuant to the CLIAregulations and is used for clinical purpos es. CAMI (test Performing Lab code = *QDID CAMI) [facility] [address] [place] [id number] Semaj Villanueva MD [facility]Proth[facility]bin time/[id number] 11:18:00 Test Item Value Reference Interpretation Comments Range Protime (test code = 14.4 See_Comment H [Autom ated 5902-2) message] The system which generated this result transmitted reference range : 11.9 - 14.2 seconds. The reference range was not used to interpret this result as normal/abnormal . INR (test code = 1.15 See_Comment [Automated 4401-6) message] The system which generated this result transmitted reference range : <=5.90. The reference range was not used to interpret this result as normal/abnormal . CAMI (test code = Effective 04/28/2019: CAMI) PT Reference Range ChangeNew: 11.9-14.2 Previous: 11.7-14.7 RECOMMENDED COUMADIN/WARFARIN INR THERAPY RANGESSTANDARD DOSE: 2.0-3.0 Includes: PROPHYLAXIS for venous thrombosis, systemic embolization; TREATMENT for venous thrombosis and/or pulmonary embolus.HIGH RISK: Target INR is 2.5-3.5 for patients wiht mechanical heart valves. Lab Interpretation Abnormal (test code = 30838-1) [facility]/[id number] 11:18:00 Test Item Value Reference Range Interpretation Comments PROTIME (BEAKER) (test code = 14.4 seconds 11.9-14.2 H 759) INR (BEAKER) (test code = 370) 1.15 <=5.90 Effective 04/28/2019: PT Reference Range ChangeNew: 11.9-14.2 Previous: 11.7- 14.7RECOMMENDED COUMADIN/WARFARIN INR THERAPY RANGESSTANDARD DOSE: 2.0-3.0 Includes: PROPHYLAXIS for venous thrombosis, systemic embolization; TREATMENT for venous thrombosis and/or pulmonary embolus.HIGH RISK: Target INR is2.5-3.5 for patients wiht mechanical heart valves.[id number] 09:20:00 Test Item Value Reference Range Interpretation Comments Phosphorus (test code = 3.0 mg/dL 2.3-4.7 2777-1) CAMI (test code = CAMI) Component Lab Tech ID - ALEKSEY Adams Lab Interpretation (test Normal code = 21716-2) [facility]2020-[facility] 09:20:00 Test Item Value Reference Range Interpretation Comments PHOSPHORUS (BEAKER) (test code = 3.0 mg/dL 2.3-4.7 604) Component Lab Tech ID - ALEKSEY DONTEomprehensive metabolic [id number] 06:39:00 Test Item Value Reference Range Interpretation Comments Protein, Total (test 5.9 See_Comment L [Autom ated code = 2885-2) message] The system which generated this result transmit alona reference range : 6.0 - 8.3 gm/dL . The reference range was not u sed to interpret th is result as normal/abnormal . Albumin (test code = 3.6 g/dL 3.5-5 68631-2) Alkaline Phosphatase 68 U/L 40-150 (test code = 6768-6) Total Bilirubin (test 1.6 mg/dL 0.2-1.2 H code = 1975-2) Sodium (test code = 142 meq/L 474-863 4473-2) Potassium (test code 3.6 meq/L 3.5-5.1 = 2823-3) Chloride (test code = 109 meq/L 98-107 H 2074-0) CO2 (test code = 24 meq/L 22-29 2027-9) BUN (test code = 9 mg/dL 7- 3094-0) Creatinine (test code 0.71 mg/dL 0.57-1.25 = 2160-0) Glucose (test code = 111 mg/dL 70-105 H 2345-7) Calcium (test code = 7.9 mg/dL 8.4-10.2 L 24944-7) AST (test code = 341 U/L 5-34 H 1920-8) ALT (test code = 1900 U/L 6-55 H 1742-6) EGFR (test code = 124 mL/min/1.73 [place] [address]-2) NOT ACCURATE CREATININE CLEARANCE IN PREDICTING GLOMERULAR FILTRATION RATE . ESTIMATED GFR I S NOT APPLICABLE FOR DIALYSIS PATIEN TSVince CAMI (test code = CAMI) Component Lab Tech ID - ALEKSEY M Lab Interpretation Abnormal (test code = 94776-3) [facility] MET[facility]OLIC [id number] 06:39:00 Test Item Value Reference Range Interpretation [...] = 382) CO2 (BEAKER) (test 24 meq/L - code = 355) BLOOD UREA NITROGEN 9 mg/dL - (BEAKER) (test code = 354) CREATININE (BEAKER) [...] S NOT APPLICABLE FOR DIALYSIS PATIEN TS. Component Lab Tech ID - ALEKSEY epatic function [id number] 06:38:00 Test Item Value Reference Range Interpretation Comments Protein, Total (test 5.9 See_Comment L [Autom ated code = 2885-2) message] The system which generated this result transmit alona reference range : 6.0 - 8.3 gm/dL . The reference range was not u sed to interpret th is result as normal/abnormal . Albumin (test code = 3.6 g/dL 3.5-5 30003-7) Total Bilirubin (test 1.6 mg/dL 0.2-1.2 H code = 1975-2) Bilirubin, Direct 1.1 mg/dL 0.1-0.5 H (test code = 1968-7) Alkaline Phosphatase 68 U/L 40-150 (test code = 6768-6) AST (test code = 341 U/L 5-34 H 1920-8) ALT (test code = 1900 U/L 6-55 H 1742-6) CAMI (test code = CAMI) Component Lab Tech ID - ALEKSEY M Lab Interpretation Abnormal (test code = 79212-2) [facility]AT[facility] FUNCTION [id number] 06:38:00 Test Item Value Reference Range Interpretation [...] code = 1900 U/L 6-55 H 347) Component Lab Tech ID - ALEKSEY [facility] with platelet count + automated [id number] 05:52:00 Test Item Value Reference Range Interpretation Comments WBC (test code = 6690-2) 4.9 See_Comment [A utomated message] The system EdPuzzle generated this result transmitted ref erence range: 3.5 - 10 .5 K/L. The refe rence range was not u sed to interpret this result as normal/abnor mal. RBC (test code = 789-8) 4.02 See_Comment L [Au tomated message] The system [employer] generated this result transmitted ref erence range: 4.63 - 6 .08 M/L. The refe rence range was not u sed to interpret this result as normal/abnor mal. MCHC (test code = 786-4) 33.1 See_Comment L [A utomated message] The system [employer] generated this result transmitted ref erence range: 32.3 - 3 6.5 GM/DL. The refe rence range was not u sed to interpret this result as normal/abnor mal. Hematocrit (test code = 35.9 % 40.1-51 L 4544-3) MCV (test code = 787-2) 89.3 fL 79-92.2 MCH (test code = 785-6) 29.6 pg 25.7-32.2 RDW (test code = 788-0) 13.1 % 11.6-14.4 Platelets (test code = 105 See_Comment L [Aut omated message] 777-3) The system [employer] generated this result transmitted ref erence range: 150 - 45 0 K/CU MM. The referen ce range was not u sed to interpret this result as normal/abnor mal. MPV (test code = 9.3 fL 9.4-12.4 L 76725-1) nRBC (test code = 413) 0 See_Comment [Aut omated message] The system [employer] generated this result transmitted ref erence range: 0 - 0 /1 00 WBC. The refere nce range was not u sed to interpret this result as normal/abnor mal. % Neutros (test code = 52 % 429) % Lymphs (test code = 34 % 430) % Monos (test code = 7 % 431) % Eos (test code = 432) 7 % % Baso (test code = 437) 1 % # Neutros (test code = 2.52 See_Comment [Aut omated message] 670) The system [employer] generated this result transmitted ref erence range: 1.78 - 5 .38 K/L. The refe rence range was not u sed to interpret this result as normal/abnor mal. # Lymphs (test code = 1.64 See_Comment [Auto mated message] 414) The system [employer] generated this result transmitted ref erence range: 1.32 - 3 .57 K/L. The refe rence range was not u sed to interpret this result as normal/abnor mal. # Monos (test code = 0.35 See_Comment [Autom ated message] 415) The system [employer] generated this result transmitted ref erence range: 0.30 - 0 .82 K/L. The refe rence range was not u sed to interpret this result as normal/abnor mal. # Eos (test code = 416) 0.33 See_Comment [Au tomated message] The system [employer] generated this result transmitted ref erence range: 0.04 - 0 .54 K/L. The refe rence range was not u sed to interpret this result as normal/abnor mal. # Baso (test code = 417) 0.03 See_Comment [A utomated message] The system EdPuzzle generated this result transmitted ref erence range: 0.01 - 0 .08 K/L. The refe rence range was not u sed to interpret this result as normal/abnor mal. Immature 0 % 0-1 Granulocytes-Relative (test code = 2801) Lab Interpretation (test Abnormal code = 43349-7) [facility] W/PLT COUNT & AUTO [id number] 05:52:00 Test Item Value Reference Range Interpretation [...] code = 2801) MR, SPINE, LUMBAR, WITHOUT [id number] 23:30:00Unlisted Reason for Exam - Click Yes [...] it is assumed that there are 5 ysb-jye-mksqxgr, lumbar-type vertebrae, and the most caudal fully [...] stenosis. No high-grade stenosis. Signed: Gisella Puckett MDReport Verified Date/Time: 09/06/2020 23:30:49 Electronically signed by: GISELLA PUCKETT MD on 05/2020 11:30 PMMR, SPINE, THORACIC, WITHOUT [id number] 23:30:00Unlisted Reason for Exam - Click Yes [...] it is assumed that there are 5 wxr-qow-kdjunil, lumbar-type vertebrae, and the most caudal fully [...] stenosis. No high-grade stenosis. Signed: Gisella Puckett MDReport Verified Date/Time: 09/06/2020 23:30:49 Electronically signed by: GISELLA PUCKETT MD on 05/2020 11:30 PMMR thoracic spine without IV [id number] 23:30:00 Interface, External Ris In - 09/06/2020 [...] it is assumed that there are 5 bel-iqq-qqzjuwj, lumbar-type vertebrae, and the most caudal fully [...] foraminal stenosis.No high-grade stenosis. Signed: Gisella Puckett [facility] Verified Date/Time: 09/06/2020 23:30:49 [facility] 2020-09-06 [...] it is assumed that there are 5 fcg-tez-maittdc, lumbar-type vertebrae, and the most caudal fully [...] Gisella Puckett MDReport Verified Date/Time: 09/06/2020 23:30:49 [facility], WITH [id number] 12:30:00chronic back pain, polysubstance abuse, possible previous [...] Verified Date/Time: 09/06/2020 12:30:32 US abdominal with [id number] 12:30:00Interface, External Ris In - 09/06/2020 12:32 [...] Martin MDReport Verified Ant e/Time: 09/06/2020 12:30:32 [facility] 09:07:00 Test Item Value Reference Range Interpretation Comments PHOSPHORUS (BEAKER) (test code = 1.8 mg/dL 2.3-4.7 L 604) Component Lab Tech ID - AMISHA PlasenciaYYdqnw-1-[id number] 07:11:00 Test Item Value Reference Range Interpretation Comments A-1 Antitrypsin (test code 166.50 mg/dL 90-200 = 1825-9) CAMI (test code = CAMI) Component Lab Tech ID - ALEKSEY M Lab Interpretation (test Normal code = 93750-0) [facility]-[id number] 07:11:00 Test Item Value Reference Range Interpretation Comments ALPHA-1 ANTITRYPSIN (BEAKER) 166.50 mg/dL 90.00-200.00 (test code = 502) Component Lab Tech ID - ALEKSEY MAlpha fetoprotein (AFP), tumor [id number] 07:07:00 Test Item Value Reference Range Interpretation Comments Alpha-Fetoprotein (test 6.3 ng/mL <10.0 code = 1834-1) CAMI (test code = CAMI) Component Lab Tech ID - ALEKSEY M Lab Interpretation (test Normal code = 65366-3) [facility] FETOPROTEIN (AFP), TUMOR [id number] 07:07:00 Test Item Value Reference Range Interpretation Comments ALPHA-FETOPROTEIN (BEAKER) (test 6.3 ng/mL <10.0 code = 1094) Component Lab Tech ID - ALEKSEY MHEPATIC FUNCTION [id number] 06:50:00 Test Item Value Reference Range Interpretation [...] code = 2885 U/L 6-55 H 347) Component Lab Tech ID - ALEKSEY MSpecimen slightly ictericBasic metabolic [id number] 06:48:00 Test Item Value Reference Range Interpretation Comments Sodium (test code = 139 meq/L 400-257 6229-2) Potassium (test code 3.5 meq/L 3.5-5.1 = 2823-3) Chloride (test code = 109 meq/L 98-107 H 2075-0) CO2 (test code = 22 meq/L 22-29 8-9) BUN (test code = 11 mg/dL 7-21 3094-0) Creatinine (test code 0.63 mg/dL 0.57-1.25 = 2160-0) Glucose (test code = 97 mg/dL 70-105 2345-7) Calcium (test code = 7.7 mg/dL 8.4-10.2 L 99854-0) EGFR (test code = 143 mL/min/1.73 [place] [address]-0) NOT ACCURATE CREATININE CLEARANCE IN PREDICTING GLOMERULAR FILTRATION RATE . ESTIMATED GFR I S NOT APPLICABLE FOR DIALYSIS PATIENTS. CAMI (test code = CAMI) Component Lab Tech ID - ALEKSEY MSpecimen slightly icteric Lab Interpretation Abnormal (test code = 11746-6) [facility] METABOLIC [id number] 06:48:00 Test Item Value Reference Range Interpretation [...] S NOT APPLICABLE FOR DIALYSIS PATIEN TS. Component Lab Tech ID - ALEKSEY MSpecimen slightly [id number] 06:40:00 Test Item Value Reference Range Interpretation Comments Magnesium (test code = 1.9 mg/dL 1.6-2.6 93609-5) CAMI (test code = CAMI) Component Lab Tech ID - ALEKSEY M Lab Interpretation (test Normal code = 13026-2) [facility]-07 06:40:00 Test Item Value Reference Range Interpretation Comments MAGNESIUM (BEAKER) (test code = 1.9 mg/dL 1.6-2.6 627) Component Lab Tech ID - ALEKSEY MPROTHROMBIN TIME/[id number] 06:02:00 Test Item Value Reference Range Interpretation [...] mechanical heart valves.CBC W/PLT COUNT & AUTO [id number] 05:59:00 Test Item Value Reference Range Interpretation [...] 0-1 PERCENT (BEAKER) (test code = 2801) [id number] 19:28:00 Test Item Value Reference Range Interpretation Comments PHOSPHORUS (BEAKER) (test code = 1.0 mg/dL 2.3-4.7 LL 604) Component Lab Tech ID - BSCOMPREHENSIVE METABOLIC [id number] 19:26:00 Test Item Value Reference Range Interpretation [...] S NOT APPLICABLE FOR DIALYSIS PATIEN TS. Component Lab Tech ID - BSSpecimen slightly [id number] 19:25:00 Test Item Value Reference Range Interpretation Comments MAGNESIUM (BEAKER) (test code = 1.9 mg/dL 1.6-2.6 627) Component Lab Tech ID - BSHEPATIC FUNCTION [id number] 08:55:00 Test Item Value Reference Range Interpretation [...] code = 5435 U/L 6-55 H 347) Component Lab Tech ID - EDASIOperator ID - AMISHA CSARS-CoV2/RT-PCR (Asymptomatic ONLY) 2020-09-05 08:46:00 Test Item Value Reference Range Interpretation Comments SARS-COV2/RT-PCR Negative Not Detected, (test code = Negative, See 39521-4) external report for linked test SARS-COV-2 [facility] PERFORM[facility] (test code = 85556-2) CAMI (test code = Negative result for [...] of the Act. Fact Sheet for Healthcare Providers:https://www.Videofropper.avox/sites/default/f edna/product/documents/F act_Sheet_HC_Providers_L ubo_CSTB-EfZ-4.pdf Fact Sheet for Healthcare Patients:https://www.Centrix Software/sites/default/fi les/product/documents/Fa ct_Sheet_Patients_Lyra_S ARS-CoV-2.pdf Performing Laboratory:[facility] [place] [place] [address] [facility] ([facility] & REF LABS)2020-09-05 08:46:00 Test Item Value Reference Range Interpretation Comments SARS-COV2/RT-PCR (test Negative Not Detected, Negative, code = 5601650) See external report for linked test SARS-COV-2 PERFORMING LAB [facility] (test code = 7776143) Negative result for this test determines that [...] 564(g) of the Act.Fact Sheet for Healthcare Providers:https://www.Vnomics.avox/sites/default/files/product/documents/Fact_Shegeri t_TJ_Xxhsjxjwl_Iyvn_RSRP-AdM-8.pdfFact Sheet for Healthcare Patients:https://www.Vnomics.avox/sites/default/files/product/ documents/Jgna_Yhcgs_Jkrnsxwn_Zqjg_RKXL-IkE-6.pdfPerforming Laboratory:[facility], [place] [id number] 07:19:00 Test Item Value Reference Range Interpretation Comments PHOSPHORUS (BEAKER) (test code = 1.7 mg/dL 2.3-4.7 L 604) Component Lab Tech ID - [id number] 07:19:00 Test Item Value Reference Range Interpretation Comments MAGNESIUM (BEAKER) (test code = 2.0 mg/dL 1.6-2.6 627) Component Lab Tech ID - EDASIBASIC METABOLIC [id number] 07:19:00 Test Item Value Reference Range Interpretation [...] S NOT APPLICABLE FOR DIALYSIS PATIEN TS. Component Lab Tech ID - [id number] 06:42:00 Test Item Value Reference Range Interpretation Comments Ferritin (test code = 64334.89 ng/mL 5-275 H 2276-4) CAMI (test code = CAMI) Component Lab Tech ID - EDASI Lab Interpretation (test Abnormal code = 22517-4) [facility]IN[facility] 06:42:00 Test Item Value Reference Range Interpretation Comments FERRITIN (BEAKER) (test code = 64427.89 ng/mL 5.00-275.00 H 361) Component Lab Tech ID - EDASIPROTHROMBIN TIME/[id number] 05:57:00 Test Item Value Reference Range Interpretation [...] = 2502-3) CAMI (test code = CAMI) Component Lab Tech ID - EDASI Lab Interpretation (test Abnormal code = 67105-5) [facility] CampusIRON, TIBC, % SAT. (WITHOUT FERRITIN)2020-09-05 05:47:00 Test Item Value Reference Range Interpretation Comments IRON (BEAKER) (test code = 547) 129.0 ug/dL 40.0-160.0 TOTAL IRON BINDING CAPACITY 210 ug/dL 250-450 L (BEAKER) (test code = 769) IRON % SATURATION (2) (BEAKER) 61 % 20-55 H (test code = 2590) Component Lab Tech ID - EDASICBC W/PLT COUNT & AUTO [id number] 05:43:00 Test Item Value Reference Range Interpretation [...] (BEAKER) (test code = 2801) HEPATIC FUNCTION [id number] 03:06:00 Test Item Value Reference Range Interpretation [...] AST (SGOT) (BEAKER) > U/L 5-34 H LGY=7517 U/L (by (test code = 353) dilution) ALT (SGPT) (BEAKER) 5184 U/L 6-55 H (test code = 347) Component Lab Tech ID - BRIANDA LOperator ID - EDASIOperator ID - EDASIOperator ID - EDASI [id number] 23:53:00 Test Item Value Reference Range Interpretation Comments MAGNESIUM (BEAKER) (test code = 2.0 mg/dL 1.6-2.6 627) Component Lab Tech ID - BRIANDA LHepatitis B [id number] 23:51:00 Test Item Value Reference Range Interpretation Comments Hep B Core Total Ab Reactive Nonreactive A (test code = 37823-3) Hep B S Ab (test 1258.6 See_Comment H [Automated code = 86560-0) message] The system which generated this result transmitted reference range : <8.0 mIU/mL. e reference range was not used to interpret this result as normal/abnormal . HBsAg Screen (test Nonreactive Nonreactive code = 5195-3) CAMI (test code = Component Lab Tech ID - CAMI) BRIANDA Dennis Lab Interpretation Abnormal (test code = 01685-4) [facility]AT[facility] [id number] 23:51:00 Test Item Value Reference Range Interpretation Comments HEPATITIS B CORE TOTAL ANTIBODY Reactive Nonreactive A (BEAKER) (test code = 497) HEPATITIS B SURFACE ANTIBODY 1258.6 mIU/mL <8.0 H (BEAKER) (test code = 647) HEPATITIS B SURFACE ANTIGEN (2) Nonreactive Nonreactive (BEAKER) (test code = 2585) Component Lab Tech ID Dana LAMAR LHepatitis C [id number] 23:48:00 Test Item Value Reference Range Interpretation Comments Hepatitis C Ab (test Nonreactive Nonreactive code = 56235-4) CAMI (test code = CAMI) Component Lab Tech ID Dana LAMAR L Lab Interpretation (test Normal code = 77369-0) [facility] [id number] 23:48:00 Test Item Value Reference Range Interpretation Comments Hep A IgM (test code = Nonreactive Nonreactive 09152-0) Hep A IgG (test code = Nonreactive Nonreactive 21600-5) CAMI (test code = CAMI) Component Lab Tech ID - BRIANDA L Lab Interpretation (test Normal code = 19922-0) [facility] C [id number] 23:48:00 Test Item Value Reference Range Interpretation Comments HEPATITIS C ANTIBODY (BEAKER) Nonreactive Nonreactive (test code = 367) Component Lab Tech ID - BRIANDA PAYNEEPATITIS A [id number] 23:48:00 Test Item Value Reference Range Interpretation Comments HEPATITIS A IGM ANTIBODY (BEAKER) Nonreactive Nonreactive (test code = 498) HEPATITIS A IGG ANTIBODY (BEAKER) Nonreactive Nonreactive (test code = 2797) Component Lab Tech ID Dana LAMAR LBASIC METABOLIC [id number] 23:28:00 Test Item Value Reference Range Interpretation [...] S NOT APPLICABLE FOR DIALYSIS PATIEN TS. Component Lab Tech ID - PIAYA LPROTHROMBIN TIME/[id number] 23:04:00 Test Item Value Reference Range Interpretation [...] mechanical heart valves.CBC W/PLT COUNT & AUTO [id number] 22:45:00 Test Item Value Reference Range Interpretation [...] 0-1 PERCENT (BEAKER) (test code = 2801) [id number] 00:00:00Ordered by an unspecified provider.[facility]CT ABDOMEN/PELVIS [id number] 15:41:00[address] [id number] IMAGING REPORTPat ient Name: RANDAL PHILIPTonyte of Service: [id number]: 36 Sex: M Order #: [id number] [facility]1980 X-Ray Number: [id number] Record Number: [id number] Hospital Number: [id number] Physician: ESTELA TELLEZ TANOrdering Physician: RUPERTO KC [...] authenticated by DEMARCO Merlos 2017-04-16 15:39:04CT THORAX [id number] 15:39:[address] [address]NEIREVLBHO IMAGING REPORTPatient Name: Dharmesh PHILIP of Service: [id number]: 36 Sex: M Order #: [id number] [facility] 1980 [facility] Number: [id number] Record Number: [id number] Hospital Number: [id number] Physician: ESTELA TELLEZ TANOrdering Physician: RUPERTO KC [...]
--- NOTE | 2021-05-07 18:18 | ER ---
Nurse's Notes [facility] Name: Diogo Holden Age: 40 yrs Sex: Male : 1980 Arrival Date: 05/07/2021 Time: 15:54 Bed 28 Private MD: Diagnosis: Unspecified otitis externa, left ear Presentation: 05/07 16:02 Chief complaint: Patient states: "we had a tele doc session and I was prescribed jd3 medications and they said if the meds don't work in 48 hours to come get seen.". Coronavirus screen: At this time, the client does not indicate any symptoms associated with coronavirus-19. Ebola Screen: Patient negative for fever greater than or equal to 101.5 degrees Fahrenheit, and additional compatible Ebola Virus Disease symptoms. Initial Sepsis Screen: Does the patient meet any 2 criteria? No. Patient's initial sepsis screen is negative. Does the patient have a suspected source of infection? No. Patient's initial sepsis screen is negative. Risk Assessment: Do you want to hurt yourself or someone else? Patient reports no desire to harm self or others. Onset of symptoms was May 03, 2021. 16:02 Method Of Arrival: Ambulatory jd3 16:02 Acuity: HEATHER 3 jd3 16:05 Note ibuprofen about an hour prior to arrival. jd3 Historical: - Allergies: 16:04 acetylcysteine; jd3 16:04 Risperdal; jd3 - PMHx: 16:04 "stomach issues"; Chronic pain; Hyperlipidemia; jd3 - PSHx: 16:04 None; jd3 - Immunization history:: Adult Immunizations up to date. - Social history:: Smoking status: Patient reports the use of cigarette tobacco products, smokes one-half pack cigarettes per day. Screenin:05 Abuse screen: Denies threats or abuse. Denies injuries from another. Nutritional ca1 screening: No deficits noted. Tuberculosis screening: No symptoms or risk factors identified. Fall Risk None identified. Assessment: 18:05 General: Appears in no apparent distress. comfortable, Behavior is calm, cooperative, ca1 appropriate for age. Pain: Complains of pain in left ear Pain currently is 10 out of 10 on a pain scale. Pain began 2-3 days ago. Neuro: Level of Consciousness is awake, alert, obeys commands, Oriented to person, place, time, situation. EENT: Ear canal w/ drainage noted from left ear. Derm: Skin is intact, is healthy with good turgor, Skin is pink, warm \\T\\ dry. Musculoskeletal: Circulation, motion, and sensation intact. Capillary refill < 3 seconds. Vital Signs: 16:04 BP 113 / 76; Pulse 81; Resp 18 S; Temp 97.7(TE); Pulse Ox 99% on R/A; Weight 104.33 kg jd3 (R); Height 6 ft. 1 in. (185.42 cm) (R); Pain 9/10; 18:23 BP 104 / 83; Pulse 76; Resp 16 S; Pulse Ox 99% on R/A; ca1 16:04 Body Mass Index 30.34 (104.33 kg, 185.42 cm) jd3 ED Course: 15:54 Patient arrived in ED. as 16:03 Triage completed. jd3 16:05 Arm band placed on. jd3 17:53 Sola Miller FNP-C is [facility]. kb 17:53 Aidan Escoto MD is Attending Physician. kb 17:55 Sushila Witt RN is Primary Nurse. ca1 18:05 Patient has correct armband on for positive identification. Bed in low position. Call ca1 light in reach. Side rails up X 1. Pulse ox on. NIBP on. 18:16 Radha Odom MD is Referral Physician. kb 18:22 No provider procedures requiring assistance completed. Patient did not have IV access ca1 during this emergency room visit. Administered Medications: 18:21 Drug: [place] (HYDROcodone-acetaminophen) 10 mg-325 mg 1 tabs {Note: rass 0.} Route: PO; ca1 18:28 Follow up: Response: Medication administered at discharge. ca1 Outcome: 18:18 Discharge ordered by . kb 18:28 Discharged to home ambulatory, with significant other. ca1 18:28 Condition: stable 18:28 Discharge instructions given to patient, significant other, Instructed on discharge instructions, follow up and referral plans. no drinking with medication, no driving heavy equipment, medication usage, Demonstrated understanding of instructions, follow-up care, medications, Prescriptions given X 1. 18:29 Patient left the ED. ca1 Signatures: Sola Miller FNP-C FNP-Lisa Sánchez Jonathon, RN RN jd3 Sushila Witt RN RN ca1 Corrections: (The following items were deleted from the chart) 16:06 16:05 Note ibuprofen about an hour gabriele suazo
--- NOTE | 2021-05-07 18:18 | EDPHYS ---
Physician Documentation [facility] Name: Diogo Holden Age: 40 yrs Sex: Male : 1980 Arrival Date: 05/07/2021 Time: 15:54 Bed 28 Private MD: ED Physician Aidan Escoto HPI: 05/07 23:36 This 40 yrs old Male presents to ER via Ambulatory with complaints of Ear kb Pain - infection,antibiotics not working. 23:36 The patient presents with drainage, pain. The complaints affect the left ear. Onset: kb The symptoms/episode began/occurred 5 day(s) ago. Modifying factors: The symptoms are alleviated by nothing, the symptoms are aggravated by nothing. Associated signs and symptoms: The patient has no apparent associated signs or symptoms. Severity of symptoms: At their worst the symptoms were moderate in the emergency department the symptoms are unchanged. The patient has not experienced similar symptoms in the past. The patient has been recently seen by a physician: eliza. Pt reports he has had ear pain for 5 days, was seen by [facility] then and prescribed augmentin. No relief with that so had a follow up 2 days ago and was prescribed ear drops. Was told to have his ear examined if it wasn't any better in 2 days.. Historical: - Allergies: 16:04 acetylcysteine; jd3 16:04 Risperdal; jd3 - PMHx: 16:04 "stomach issues"; Chronic pain; Hyperlipidemia; jd3 - PSHx: 16:04 None; jd3 - Immunization history:: Adult Immunizations up to date. - Social history:: Smoking status: Patient reports the use of cigarette tobacco products, smokes one-half pack cigarettes per day. ROS: 23:33 Constitutional: Negative for fever, chills, and weight loss. kb 23:33 ENT: Positive for drainage from ear(s), ear pain. 23:33 All other systems are negative. Exam: 23:34 Respiratory: Respirations even and unlabored. No increased work of breathing, no kb retractions or nasal flaring. Skin: Warm, dry with normal turgor. Normal color. MS/ Extremity: Pulses equal, no cyanosis. Neurovascular intact. Full, normal range of motion. Neuro: Awake and alert, GCS 15, oriented to person, place, time, and situation. Moves all extremities. Normal gait. Psych: Awake, alert, with orientation to person, place and time. Behavior, mood, and affect are within normal limits. 23:34 Constitutional: The patient appears alert, awake, uncomfortable. 23:34 ENT: External ear(s): pain with movement, Ear canal(s): purulent discharge, that is moderate, in the left canal, swelling, that is moderate, of the left canal, TM's: not visable, because of discharge, Examination of the other ear shows no obvious abnormality. Vital Signs: 16:04 BP 113 / 76; Pulse 81; Resp 18 S; Temp 97.7(TE); Pulse Ox 99% on R/A; Weight 104.33 kg jd3 (R); Height 6 ft. 1 in. (185.42 cm) (R); Pain 9/10; 18:23 BP 104 / 83; Pulse 76; Resp 16 S; Pulse Ox 99% on R/A; ca1 16:04 Body Mass Index 30.34 (104.33 kg, 185.42 cm) jd3 MDM: 17:54 Patient medically screened. kb 23:34 Data reviewed: vital signs, nurses notes. Data interpreted: Pulse oximetry: on room air kb is 99 %. Interpretation: normal. Counseling: I had a detailed discussion with the patient and/or guardian regarding: the historical points, exam findings, and any diagnostic results supporting the discharge/admit diagnosis, the need for outpatient follow up, an ENT specialist, to return to the emergency department if symptoms worsen or persist or if there are any questions or concerns that arise at home. ED course: BREAKDOWN MAN aware reviewed. No prescriptions filled since 2019. . Administered Medications: 18:21 Drug: [place] (HYDROcodone-acetaminophen) 10 mg-325 mg 1 tabs {Note: rass 0.} Route: PO; ca1 18:28 Follow up: Response: Medication administered at discharge. ca1 Disposition: 05/08 07:04 Co-signature as Attending Physician, Aidan Escoto MD. rn Disposition: 05/07/21 18:18 Discharged to Home. Impression: Unspecified otitis externa, left ear. - Condition is Stable. - Discharge Instructions: Otitis Externa, Eyjr-jr-Lawb, Ear Drops, Adult, Ihut-an-Jshe. - Prescriptions for Tramadol 50 mg Oral Tablet - take 1 tablet by ORAL route every 8 hours as needed; 12 tablet. - Medication Reconciliation Form, Thank You Letter, Antibiotic Education, Prescription Opioid Use form. - Follow up: Emergency Department; When: As needed; Reason: Worsening of condition. Follow up: Radha Odom MD; When: 2 - 3 days; Reason: Recheck today's complaints. Signatures: Sola Miller, REPAIRER RECREATIONAL VEHICLE-C REPAIRER RECREATIONAL VEHICLE-Ckb Aidan Escoto MD MD rn Homar Medeiros RN RN jd3 Sushila Witt RN RN ca1 Corrections: (The following items were deleted from the chart) 05/07 18:29 18:18 05/07/2021 18:18 Discharged to Home. Impression: Unspecified otitis externa, left ca1 ear. Condition is Stable. Forms are Medication Reconciliation Form, Thank You Letter, Antibiotic Education, Prescription Opioid Use. Follow up: Emergency Department; When: As needed; Reason: Worsening of condition. Follow up: Radha Odom; When: 2 - 3 days; Reason: Recheck today's complaints. kb
[2021-05-07 18:34] VITALS: TEMP 97.7; O2SAT 99
[2021-05-07 18:37] VITALS: BP 104/83
[2021-05-07] MEDS ORDERED: HYDROCODONE/APAP 10/325 TAB ONE (18:40)
== END 2021-05-07 18:29 | disposition home or self-care (01) ==
LOC: ER 15:51
DX: H60.92 Unspecified otitis externa, left ear (principal); F17.210 Nicotine dependence, cigarettes, uncomplicated; E78.5 Hyperlipidemia, unspecified; G89.29 Other chronic pain
CPT/HCPCS: 99283

== ENCOUNTER 2021-05-11 19:58 | Observation (INO) | payer OTHER ==
[2021-05-11 20:50] LABS: Absolute Lymphocytes (CBC) 2.2 K/uL (0.7-4.9); Basophils % 0.5 % (0-1.3); Lymphocytes % 26.5 % (15.3-44.8); RBC Red Blood Cell Count 4.92 M/uL (4.33-5.43)
--- NOTE | 2021-05-11 20:56 | RAD REPORT ---
EXAM DESCRIPTION: RAD - Chest Single View - 05/11/2021 8:46 pm CLINICAL HISTORY: CHEST PAIN Chest pain. COMPARISON: Chest Single View dated 01/04/2019 FINDINGS: Portable technique limits examination quality. The lungs are grossly clear. The heart is normal in size. No displaced fractures. IMPRESSION: No acute intrathoracic process suspected.
[2021-05-11 21:03] LABS: Protime INR 0.99
[2021-05-11 21:08] LABS: ALT/SGPT 16 U/L (12-78); AST/SGOT 19 U/L (15-37); Alkaline Phosphatase 85 U/L (45-117); BUN Blood Urea Nitrogen 14 mg/dL (7-18); Bicarbonate 24 mmol/L (21-32); Bilirubin Direct 0.2 mg/dL (0-0.2); Bilirubin Total 0.5 mg/dL (0.2-1.0); Glucose Level 126 mg/dL (74-106); Potassium 3.5 mmol/L (3.5-5.1); Protein, Total 7.8 g/dL (6.4-8.2); Sodium Level 144 mmol/L (136-145)
[2021-05-11 21:09] LABS: Albumin 3.6 g/dL (3.4-5.0); Magnesium 2.5 mg/dL (1.8-2.4); NT PRO-BNP 15 pg/mL (<125); Troponin (Emerg Dept Use Only) < 0.02 ng/mL (0.0-0.045)
[2021-05-11 21:31] LABS: Urine Blood Negative (Negative); Urine Glucose Negative (Negative); Urine Protein Negative (Negative); Urine Specific Gravity >=1.030 (1.005-1.030); Urine pH 5.5 (5.0-7.0)
[2021-05-11 21:54] LABS: Barbiturates NEGATIVE (NEGATIVE); Benzodiazepines NEGATIVE (NEGATIVE); Cocaine NEGATIVE (NEGATIVE); METHAMPHETAM NEGATIVE (NEGATIVE); Methadone NEGATIVE (NEGATIVE); Opiates NEGATIVE (NEGATIVE); Phencyclidine NEGATIVE (NEGATIVE); THC Cannibis POSITIVE (NEGATIVE)
[2021-05-11] MEDS ORDERED: ASPIRIN 81 MG CHEWABLE TABLET ONE (21:56)
--- NOTE | 2021-05-11 22:37 | EDPHYS ---
Physician Documentation [facility] Name: Diogo Holden Age: 40 yrs Sex: Male : 1980 Arrival Date: 05/11/2021 Time: 19:59 Bed 17 Private MD: ED Physician Peewee Gao HPI: 05/11 20:40 This 40 yrs old Male presents to ER via Ambulatory with complaints of Chest cp Pain. 20:40 The patient or guardian reports chest pain that is located primarily in the substernal cp area. The pain does not radiate. Associated signs and symptoms: Pertinent negatives: abdominal pain, cough, headache, lower extremity pain, lower extremity swelling, shortness of breath, syncope, vomiting. The chest pain is described as a pressure. Duration: The patient or guardian reports multiple episodes, that are intermittent. Modifying factors: the symptoms are aggravated by activity. Severity of pain: in the emergency department the pain has resolved while waiting in exam room and laying on stretcher. 20:40 Patient reports history of AL due to cocaine use in the past. Reports episodes of pain cp feel similar. Pain awoke him this morning. Described as pressure and squeezing. Patient denies any recent use of illegal drugs. Historical: - Allergies: 20:29 acetylcysteine; vg1 20:29 Risperdal; vg1 - Home Meds: 20:29 atorvastatin 20 mg Oral tab 1 tab once daily [Active]; biotin Oral [Active]; gabapentin vg1 Oral [Active]; Lexapro Oral [Active]; Omeprazole Oral [Active]; pantoprazole 40 mg Oral chew 1 tab once daily [Active]; Zofran (as hydrochloride) Oral [Active]; - PMHx: 20:29 "stomach issues"; Chronic pain; Hyperlipidemia; Myocardial infarction; Liver Failure; vg1 - Immunization history:: Adult Immunizations up to date. - Social history:: Smoking status: Patient reports the use of cigarette tobacco products, smokes one pack cigarettes per day. ROS: 20:45 Constitutional: Negative for body aches, chills, fever, poor PO intake. cp 20:45 Eyes: Negative for injury, pain, redness, and discharge. cp 20:45 ENT: Negative for ear pain, sore throat, difficulty swallowing, difficulty handling secretions. 20:45 Cardiovascular: Positive for chest pain, Negative for edema, palpitations. 20:45 Respiratory: Negative for cough, shortness of breath, wheezing. 20:45 Abdomen/GI: Negative for abdominal pain, nausea, vomiting, and diarrhea, constipation, black/tarry stool, rectal bleeding. 20:45 Back: Negative for pain at rest, pain with movement, radiated pain. 20:45 : Negative for urinary symptoms. 20:45 Neuro: Negative for altered mental status, dizziness, headache, syncope, weakness. 20:45 All other systems are negative. Exam: 20:50 Constitutional: The patient appears in no acute distress, alert, awake, cp non-diaphoretic, non-toxic, well developed, well nourished. 20:50 Head/Face: Normocephalic, atraumatic. cp 20:50 Eyes: Periorbital structures: appear normal, Conjunctiva: normal, no exudate, no injection, Sclera: no appreciated abnormality, Lids and lashes: appear normal, bilaterally. 20:50 ENT: External ear(s): are unremarkable, Nose: is normal, Mouth: Lips: moist, Oral mucosa: pink and intact, moist, Posterior pharynx: Airway: no evidence of obstruction, patent. 20:50 Neck: ROM/movement: is normal, is supple, without pain, no range of motions limitations. 20:50 Chest/axilla: Inspection: normal, Palpation: is normal, no crepitus, no tenderness. 20:50 Cardiovascular: Rate: normal, Rhythm: regular, Heart sounds: murmur, not appreciated, Edema: is not appreciated, JVD: is not appreciated. 20:50 Respiratory: the patient does not display signs of respiratory distress, Respirations: normal, no use of accessory muscles, no retractions, labored breathing, is not present, Breath sounds: are clear throughout, no decreased breath sounds, no stridor, no wheezing. 20:50 Abdomen/GI: Inspection: abdomen appears normal, Palpation: abdomen is soft and non-tender, in all quadrants. 20:50 Back: pain, is absent, ROM is normal. 20:50 Neuro: Orientation: to person, place \\T\\ time. Mentation: is normal, Motor: moves all fours, strength is normal, Sensation: is normal. Vital Signs: 20:25 BP 126 / 86; Pulse 64; Resp 16; Temp 98.2; Pulse Ox 99% ; Weight 104.33 kg; Height 6 vg1 ft. 1 in. (185.42 cm); Pain 4/10; 21:41 BP 110 / 74; Pulse 73; Resp 15; Pulse Ox 100% on R/A; ap3 23:00 BP 110 / 81; Pulse 64; Pulse Ox 99% on R/A; ap3 05/12 00:18 BP 110 / 73; Pulse 58; Pulse Ox 97% on R/A; ap3 05/11 20:25 Body Mass Index 30.34 (104.33 kg, 185.42 cm) vg1 MDM: 05/11 20:34 Patient medically screened. 22:15 Data reviewed: vital signs, nurses notes, lab test result(s), EKG, radiologic studies, cp plain films. 22:35 Physician consultation: Isrrael AMBROSIO was called at 22:30, was contacted at 22:30, cp regarding admission, to the telemetry unit. patient's condition. 05/11 20:36 Order name: Basic Metabolic Panel; Complete Time: 22:10 cp /11 22:10 Interpretation: Normal except: CL 113; GLUC 126. cp 05/11 20:36 Order name: CBC with Diff; Complete Time: 22:10 / 22:11 Interpretation: Normal except: MPV 7.0. cp / 20:36 Order name: LFT's; Complete Time: 22:10 05/11 20:36 Order name: Magnesium; Complete Time: 22:10 05/11 20:36 Order name: NT PRO-BNP; Complete Time: 22:10 cp 05/11 20:36 Order name: PT-INR; Complete Time: 22:10 /11 20:36 Order name: Troponin (emerg Dept Use Only); Complete Time: 22:10 05/11 20:36 Order name: UDS; Complete Time: 22:10 /11 22:11 Interpretation: Normal except: THC POSITIVE. cp 05/11 20:34 Order name: EKG; Complete Time: 20:35 05/11 20:34 Order name: EKG - Nurse/Tech; Complete Time: 20:35 cp 05/11 20:36 Order name: XRAY Chest (1 view); Complete Time: 22:10 05/11 20:36 Order name: Cardiac monitoring; Complete Time: 20:38 cp 05/11 20:36 Order name: IV Saline Lock; Complete Time: 20:38 cp 05/11 20:36 Order name: Labs collected and sent; Complete Time: 20:41 cp 05/11 20:36 Order name: O2 Per Protocol; Complete Time: 20:38 cp 05/11 20:36 Order name: O2 Sat Monitoring; Complete Time: 20:38 cp 05/11 20:37 Order name: Cardiac monitoring; Complete Time: 20:38 ap3 05/11 21:30 Order name: Urine Dipstick-Ancillary; Complete Time: 22:10 EDMS 05/11 23:57 Order name: SARS-COV-2 RT PCR EDNM 05/11 20:37 Order name: IV Saline Lock; Complete Time: 20:38 ap3 05/11 20:37 Order name: Labs collected and sent; Complete Time: 20:41 ap3 05/11 20:37 Order name: O2 Per Protocol; Complete Time: 20:38 ap3 05/11 20:37 Order name: O2 Sat Monitoring; Complete Time: 20:38 ap3 Administered Medications: 21:39 Not Given (Patient Refused; patient states he took asprin prior to arriving at ER): ap3 Aspirin Chewable Tablet 324 mg PO once; 81 mg tablets x 4 23:16 Drug: Nicoderm CQ 21 mg/24 hr 21 mg Route: Transdermal; Site: affected area; ap3 23:19 Follow up: Response: No adverse reaction ap3 Disposition: 05/11/21 22:36 Hospitalization ordered by Curtis Escoto for Observation. Preliminary diagnosis is Chest pain, unspecified. - Bed requested for Telemetry/MedSurg (observation). - Status is Observation. wh - Condition is Stable. - Problem is new. - Symptoms have improved. Addendum: 05/13/2021 02:32 Co-signature as Attending Physician, Peewee Gao MD. m h7 Signatures: Dispatcher [employer] EDNM Maximilian Padilla PA PA cp Garcia, Cindy, RN SLAVA Keeley Nix RN RN Rita Ugalde RN RN ap3 Curtis Churchill, RN RN [id number] Isela Rinaldi RN SLAVA 1 Peewee Gao MD MD 7 Corrections: (The following items were deleted from the chart) 05/11 20:42 20:37 BASIC METABOLIC PANEL+C.LAB.BRZ ordered. EDMS EDMS 20:42 20:37 CBC+H.LAB.BRZ ordered. EDMS EDMS 20:42 20:37 HEPATIC FUNCTION+C.LAB.BRZ ordered. EDMS EDMS 20:42 20:37 MAGNESIUM+C.LAB.BRZ ordered. EDMS EDMS 20:42 20:37 PROBNP+C.LAB.BRZ ordered. EDMS EDMS 20:42 20:37 PROTIME (+INR)+COAG.LAB.BRZ ordered. EDMS EDMS 20:42 20:37 TROPONIN (EMERG DEPT USE ONLY)+C.LAB.BRZ ordered. EDMS EDMS 20:46 20:37 Chest Single View+RAD.RAD.BRZ ordered. EDMS EDMS 22:59 22:41 CORONAVIRUS+MR.LAB.BRZ ordered. EDNM EDMS 05/12 00:52 05/11 22:36 Hospitalization Ordered by Curtis Escoto MD for Observation. Preliminary cg diagnosis is Chest pain, unspecified. Bed requested for Telemetry/MedSurg (observation). Status is Observation. Condition is Stable. Problem is new. Symptoms have improved. cp 05/12 01:15 00:52 05/11/2021 22:36 Hospitalization Ordered by Curtis Escoto MD for Observation. wh Preliminary diagnosis is Chest pain, unspecified. Bed requested for Telemetry/MedSurg (observation). Status is Observation. Condition is Stable. Problem is new. Symptoms have improved. cg
--- NOTE | 2021-05-11 22:37 | ER ---
Nurse's Notes [facility] Name: Diogo Holden Age: 40 yrs Sex: Male : 1980 Arrival Date: 05/11/2021 Time: 19:59 Bed 17 Private MD: Diagnosis: Chest pain, unspecified Presentation: 05/11 20:25 Chief complaint: Patient states: 'I woke up last night with Chest pressure in the vg1 middle of my chest and in my back between my shoulder blades, I took some aspirin hoping it would go away but it hasnt.' Denies h/a and denies NVD. Coronavirus screen: Client denies travel out of the [place] in the last 14 days. Ebola Screen: Patient negative for fever greater than or equal to 101.5 degrees Fahrenheit, and additional compatible Ebola Virus Disease symptoms. Initial Sepsis Screen: Does the patient meet any 2 criteria? No. Patient's initial sepsis screen is negative. Does the patient have a suspected source of infection? No. Patient's initial sepsis screen is negative. Risk Assessment: Do you want to hurt yourself or someone else? Patient reports no desire to harm self or others. Onset of symptoms was May 10, 2021. 20:25 Method Of Arrival: Ambulatory vg1 20:25 Acuity: HEATHER 3 vg1 Triage Assessment: 20:29 General: Appears in no apparent distress. uncomfortable, Behavior is calm, cooperative. vg1 Pain: Complains of pain in back and chest. Cardiovascular: Patient's skin is warm and dry. Historical: - Allergies: 20:29 acetylcysteine; vg1 20:29 Risperdal; vg1 - Home Meds: 20:29 atorvastatin 20 mg Oral tab 1 tab once daily [Active]; biotin Oral [Active]; gabapentin vg1 Oral [Active]; Lexapro Oral [Active]; Omeprazole Oral [Active]; pantoprazole 40 mg Oral chew 1 tab once daily [Active]; Zofran (as hydrochloride) Oral [Active]; - PMHx: 20:29 "stomach issues"; Chronic pain; Hyperlipidemia; Myocardial infarction; Liver Failure; vg1 - Immunization history:: Adult Immunizations up to date. - Social history:: Smoking status: Patient reports the use of cigarette tobacco products, smokes one pack cigarettes per day. Screenin:48 Abuse screen: Denies threats or abuse. Nutritional screening: No deficits noted. ap3 Tuberculosis screening: No symptoms or risk factors identified. Fall Risk None identified. Assessment: 20:47 General: Appears comfortable, Behavior is calm, cooperative, appropriate for age. Pain: ap3 Complains of pain in xyphoid area Pain radiates to thoracic area Pain currently is 5 out of 10 on a pain scale. Quality of pain is described as pressure, Pain began 1 day ago. Is intermittent, Alleviated by rest, Aggravated by increased activity. Neuro: Level of Consciousness is awake, alert, obeys commands, Oriented to person, place, time, situation. Cardiovascular: Capillary refill < 3 seconds. Cardiovascular: Reports chest pain. Respiratory: Denies shortness of breath. GI: No signs and/or symptoms were reported involving the gastrointestinal system. : No signs and/or symptoms were reported regarding the genitourinary system. EENT: No signs and/or symptoms were reported regarding the EENT system. 21:08 General: patient provided with urine specimen cup and education on how to collect a ap3 clean catch. Patient verbalized understanding. . 21:41 Reassessment: Patient and/or family updated on plan of care and expected duration. Pain ap3 level reassessed. Patient is alert, oriented x 3, equal unlabored respirations, skin warm/dry/pink. 23:19 Reassessment: patient updated on admission status. ap3 05/12 00:18 Reassessment: No changes from previously documented assessment. ap3 Vital Signs: 05/11 20:25 BP 126 / 86; Pulse 64; Resp 16; Temp 98.2; Pulse Ox 99% ; Weight 104.33 kg; Height 6 vg1 ft. 1 in. (185.42 cm); Pain 4/10; 21:41 BP 110 / 74; Pulse 73; Resp 15; Pulse Ox 100% on R/A; ap3 23:00 BP 110 / 81; Pulse 64; Pulse Ox 99% on R/A; ap3 05/12 00:18 BP 110 / 73; Pulse 58; Pulse Ox 97% on R/A; ap3 05/11 20:25 Body Mass Index 30.34 (104.33 kg, 185.42 cm) vg1 ED Course: 05/11 19:59 Patient arrived in ED. as 20:21 Rita Ugalde, RN is Primary Nurse. ap3 20:28 Triage completed. vg1 20:29 Arm band placed on. EKG completed in triage. Results shown to MD. vg1 20:32 Maximilian Padilla PA is PHCP. cp 20:32 Peewee Gao MD is Attending Physician. 20:46 XRAY Chest (1 view) In Process Unspecified. EDMS 20:47 Inserted saline lock: 20 gauge in right antecubital area, using aseptic technique. ap3 Blood collected. Patient maintains SpO2 saturation greater than 95% on room air. 20:49 Patient has correct armband on for positive identification. Bed in low position. Call ap3 light in reach. Side rails up X 1. Adult w/ patient. monitor worker on. Pulse ox on. NIBP on. Door closed. Noise minimized. 22:36 Curtis Escoto MD is Hospitalizing Provider. 06 00:59 No provider procedures requiring assistance completed. Patient admitted, IV remains in place. Administered Medications: 05/11 21:39 Not Given (Patient Refused; patient states he took asprin prior to arriving at ER): ap3 Aspirin Chewable Tablet 324 mg PO once; 81 mg tablets x 4 23:16 Drug: Nicoderm CQ 21 mg/24 hr 21 mg Route: Transdermal; Site: affected area; ap3 23:19 Follow up: Response: No adverse reaction ap3 Outcome: 22:36 Decision to Hospitalize by Provider. 05/12 00:59 Admitted to [facility] accompanied by nurse, via wheelchair, room 406, with chart, Report called to Comfort Emmanuel RN Condition: stable Instructed on the need for admit. 01:15 Patient left the ED. Signatures: Dispatcher [employer] Lisa Zarco Corey, PA PA cp Habalo, Winsy, RN SLAVA Rita Ugalde, RN SLAVA [email or web address] Isela Rinaldi, RN RN vg1
[2021-05-11] MEDS ORDERED: NICOTINE 21 MG/PAT TD ONE (23:34)
--- NOTE | 2021-05-12 00:16 | P.HP ---
Certification for Inpatient Patient admitted to: Observation With expected LOS: <2 Midnights Patient will require the following post-hospital care: None Practitioner: I am a practitioner with admitting privileges, knowledge of patient current condition, hospital course, and medical plan of care. 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 Patient reports over the course of the last few months whenever he exerts himself he feels a pressure- like sensation in his chest. Last night the pain awoke him from his sleep described as a vice squeezing his heart with some associated shortness of breath, pain is nonradiating. Patient reports that his pain is exacerbated with exertion. Patient evaluated in the emergency department, initial troponin negative EKG without acute changes at this time chest x-ray unremarkable. Patient with previous EKG when he is in hepatic failure related to alcohol/Tylenol abuse that showed ST-elevation KS with elevations in leads 2, 3 and AVF, patient was transferred at that time and does not recall his hospitalization, unsure of if he had a heart catheterization or not that to his knowledge did not have any stenting. ED prior wishes to admit for chest pain observation. 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 moist/pink Neck: Supple, 2+ carotid pulse no bruit, No LAD, Without JVD or thyroid abnormality Respiratory: Clear to auscultation bilaterally, Normal air movement Cardiovascular: Regular rate/rhythm, Normal S1 S2 Gastrointestinal: Normal bowel sounds, No tenderness Musculoskeletal: No tenderness Integumentary: No rashes Neurological: Normal speech, Normal strength at 5/5 x4 extr, Normal tone, Normal affect - Studies Laboratory Data (last 24 hrs) 05/11/21 20:39: PT 11.4, INR 0.99 05/11/21 20:39: WBC 8.40, Hgb 15.1, Hct 44.0, Plt Count 264 05/11/21 20:39: Sodium 144, Potassium 3.5, BUN 14, Creatinine 0.90, Glucose 126 H, Magnesium 2.5 H, Total Bilirubin 0.5, AST 19, ALT 16, Alkaline Phosphatase 85 05/11/21 20:37: PT Cancelled, INR Cancelled 05/11/21 20:37: WBC Cancelled, Hgb Cancelled, Hct Cancelled, Plt Count Cancelled 05/11/21 20:37: Sodium Cancelled, Potassium Cancelled, BUN Cancelled, Creatinine Cancelled, Glucose Cancelled, Magnesium Cancelled, Total Bilirubin Cancelled, AST Cancelled, ALT Cancelled, Alkaline Phosphatase Cancelled Assessment and Plan - Plan Assessment Chest pain rule out ACS Hemochromatosis History of liver failure/alcohol/Tylenol abuse Tobacco abuse Plan Chest pain rule out ACS: Trend troponins, monitor on telemetry, daily aspirin, statin, beta-barb therapy. Cardiology consulted. Patient unsure if he has had a heart catheterization, was transferred for liver failure and had a four- day hospitalization at [facility] will attempt to obtain records from . DVT prophylaxis Lovenox 40 mg subcutaneous once daily. Hemochromatosis: Stable, will check ferritin with morning labs. History of liver failure/alcohol/Tylenol abuse: No longer abusing alcohol/Tylenol, LFTs normal this time. Patient stated he had a full recovery. Tobacco abuse: Provide with Nicoderm patch. Counseled on need for cessation. Discharge Plan: Home Plan to discharge in: 24 Hours - Advance Directives Does patient have a Living Will: No Does patient have a Durable POA for Healthcare: No - Code Status/Comfort Care Code Status Assessed: Yes (Full code) Critical Care: No Time Spent Managing Pts Care (In Minutes): 55
[2021-05-12] MEDS ORDERED: MELATONIN 5 MG TABLET PO PRN (01:08)
[2021-05-12] MEDS ORDERED: ONDANSETRON 4 MG/2 ML VIAL IV PRN (01:08)
[2021-05-12] MEDS ORDERED: ACETAMINOPHEN 500 MG TAB PO PRN (01:08)
[2021-05-12 01:44] VITALS: O2SAT 98; BMI 28.3
[2021-05-12 05:14] LABS: Absolute Lymphocytes (CBC) 2.8 K/uL (0.7-4.9); Basophils % 0.7 % (0-1.3); Hematocrit 44.1 % (39.6-49.0); Lymphocytes % 35.1 % (15.3-44.8); MPV 7.1 fL (7.6-11.3); RBC Red Blood Cell Count 4.92 M/uL (4.33-5.43)
[2021-05-12 05:29] LABS: ALT/SGPT 15 U/L (12-78); AST/SGOT 13 U/L (15-37); Albumin 3.6 g/dL (3.4-5.0); Alkaline Phosphatase 79 U/L (45-117); BUN Blood Urea Nitrogen 16 mg/dL (7-18); Bicarbonate 25 mmol/L (21-32); Bilirubin Total 0.4 mg/dL (0.2-1.0); Glucose Level 109 mg/dL (74-106); HDL Cholesterol 44 mg/dL (40-60); LDL Cholesterol, Calculated 192 (<130); Magnesium 2.2 mg/dL (1.8-2.4); Potassium 3.8 mmol/L (3.5-5.1); Protein, Total 7.4 g/dL (6.4-8.2); Sodium Level 142 mmol/L (136-145); Thyroid Stimulating Hormone 0.806 uIU/mL (0.360-3.740); Troponin I < 0.02 ng/mL (0.0-0.045)
[2021-05-12] MEDS ORDERED: POTASSIUM CL SA 10 MEQ TAB PO ONE (05:31)
[2021-05-12] MEDS: METOPROLOL TAR 25 MG TAB PO SCH ×2 (05:39→16:54)
--- NOTE | 2021-05-12 06:29 | P.PN ---
Subjective Date of Service: 05/12/21 Chief Complaint: Chest pain Subjective: Other (no current pain this morning. denies SOB, reports twin brother had some "heart problems" and needed to be "shocked to get the right rhythm") Review of Systems 10-point ROS is otherwise unremarkable Physical Examination - Vital Signs Temperature: 97.0 F Blood Pressure: 127/75 Pulse: 61 Respirations: 18 Pulse Ox (%): 98 - Studies Laboratory Data (last 24 hrs) 05/11/21 20:39: PT 11.4, INR 0.99 05/11/21 20:39: WBC 8.40, Hgb 15.1, Hct 44.0, Plt Count 264 05/11/21 20:39: Sodium 144, Potassium 3.5, BUN 14, Creatinine 0.90, Glucose 126 H, Magnesium 2.5 H, Total Bilirubin 0.5, AST 19, ALT 16, Alkaline Phosphatase 85 05/11/21 20:37: PT Cancelled, INR Cancelled 05/11/21 20:37: WBC Cancelled, Hgb Cancelled, Hct Cancelled, Plt Count Cancelled 05/11/21 20:37: Sodium Cancelled, Potassium Cancelled, BUN Cancelled, Creatinine Cancelled, Glucose Cancelled, Magnesium Cancelled, Total Bilirubin Cancelled, AST Cancelled, ALT Cancelled, Alkaline Phosphatase Cancelled Assessment & Plan Physician Review Additional Text: Physical Exam General: Alert, In no apparent distress HEENT: normal conjunctiva, sclera anicteric Respiratory: Clear to auscultation bilaterally, Normal air movement Cardiovascular: Regular rate/rhythm, Normal S1 S2, no edema Gastrointestinal: soft, +epigastric tenderness, no rebound, nondistended Integumentary: No rashes Problem List Chest pain rule out ACS Hemochromatosis h/o GERD History of liver failure/alcohol/Tylenol abuse Tobacco abuse -trop remain flat so far, continue to trend, pain seems to be related to exertion, but did wake him up -cardiology consulted -continue aspirin, statin, BB -also with epigastric tenderness, but states this is chronic and not the same pain, takes occasional prilosec -will add carafate, ppi dispo: possible dc home later today pending negative trop and cardiology eval Time Spent Managing Pts Care (In Minutes): 35
[2021-05-12] MEDS ORDERED: ASPIRIN 81 MG CHEWABLE TABLET ONE (07:23)
[2021-05-12] MEDS: SUCRALFATE 1 GM TABLET PO SCH ×3 (07:35→15:43)
[2021-05-12] MEDS ORDERED: ASPIRIN EC 81 MG TAB PO SCH (09:00)
[2021-05-12] MEDS ORDERED: ENOXAPARIN 40 MG/0.4 ML SQ SCH (09:00)
[2021-05-12 15:09] VITALS: BP 119/79; TEMP 98.2
--- NOTE | 2021-05-12 16:43 | P.DS ---
Admission Date: 05/12/21 Discharge Date: 05/12/21 Disposition: ROUTINE DISCHARGE Discharge Condition: GOOD Reason for Admission: Chest pain Consultations: Cardiology - Dr. Salinas Procedures: CXR (05/11): The lungs are grossly clear. The heart is normal in size. No displaced fractures. IMPRESSION: No acute intrathoracic process suspected. 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 Patient reports over the course of the last few months whenever he exerts himself he feels a pressure- like sensation in his chest. Last night the pain awoke him from his sleep described as a vice squeezing his heart with some associated shortness of breath, pain is nonradiating. Patient reports that his pain is exacerbated with exertion. Patient evaluated in the emergency department, initial troponin negative EKG without acute changes at this time chest x-ray unremarkable. Patient with previous EKG when he is in hepatic failure related to alcohol/Tylenol abuse that showed ST-elevation [place] with elevations in leads 2, 3 and AVF, patient was transferred at that time and does not recall his hospitalization, unsure of if he had a heart catheterization or not that to his knowledge did not have any stenting. ED prior wishes to admit for chest pain observation. Hospital Course: Troponins were trended and remained negative. His chest pain improved. Cardiology was consulted. All patient ambulated multiple laps around the nursing station without any recreation of his chest pain. Options were discussed, patient referred to be discharged home to follow up this Friday with Cardiology for outpatient stress test. He is discharged with aspirin 81 mg and atorvastatin 20 mg qHS. Patient was noted to have high LDL. He also had some epigastric tenderness and h/o GERD, only taking prilosec as needed. Recommended prilosec daily for next 2 months. Follow up with PCP in 3-5 days. Follow up with Cardiology in 2 days. Vital Signs/Physical Exam: Temp Pulse Resp BP Pulse Ox 98.2 F 63 18 119/79 98 05/12/21 15:07 05/12/21 15:07 05/12/21 15:07 05/12/21 15:07 05/12/21 15:07 Laboratory Data at Discharge: WBC 7.90 K/uL (4.3-10.9) 05/12/21 04:46 Hgb 14.7 g/dL (13.6-17.9) 05/12/21 04:46 Hct 44.1 % (39.6-49.0) 05/12/21 04:46 Plt Count 265 K/uL (152-406) 05/12/21 04:46 PT 11.4 SECONDS (9.5-12.5) 05/11/21 20:39 INR 0.99 05/11/21 20:39 Sodium 142 mmol/L (136-145) 05/12/21 04:46 Potassium 3.8 mmol/L (3.5-5.1) 05/12/21 04:46 BUN 16 mg/dL (7-18) 05/12/21 04:46 Creatinine 0.77 mg/dL (0.55-1.3) 05/12/21 04:46 Glucose 109 mg/dL (74-106) H 05/12/21 04:46 Magnesium 2.2 mg/dL (1.8-2.4) 05/12/21 04:46 Total Bilirubin 0.4 mg/dL (0.2-1.0) 05/12/21 04:46 AST 13 U/L (15-37) L 05/12/21 04:46 ALT 15 U/L (12-78) 05/12/21 04:46 Alkaline Phosphatase 79 U/L (45-117) 05/12/21 04:46 Troponin I < 0.02 ng/mL (0.0-0.045) 05/12/21 11:12 Triglycerides 168 mg/dL (<150) H 05/12/21 04:46 Cholesterol 270 mg/dL (<200) H 05/12/21 04:46 HDL Cholesterol 44 mg/dL (40-60) 05/12/21 04:46 Cholesterol/HDL Ratio 6.14 05/12/21 04:46 Home Medications: Aspirin [Aspirin EC 81 MG] 81 mg PO DAILY 30 Days #30 tablet. 05/12/21 RX: Amoxicillin/Potassium Clav [Amox-Clav 875-125 mg Tablet] 1 each PO BID 05/12/21 RX: Atorvastatin Calcium [Lipitor*] 20 mg PO BEDTIME 30 Days #30 tab 05/12/21 RX: Andrae/Polym/Hc [Cortisporin 1% Otic Suspension*] 4 drops LEFT EAR QID 05/12/21 RX: Tramadol HCl [Ultram] 50 mg PO Q6HP PRN 05/12/21 New Medications: Aspirin [Aspirin EC 81 MG] 81 mg PO DAILY 30 Days #30 tablet. RX: Atorvastatin Calcium [Lipitor*] 20 mg PO BEDTIME 30 Days #30 tab Physician Discharge Instructions: Your chest pain was evaluated by EKG and cardiac enzymes - which were normal and did not show any signs of heart damage / heart attack. You had improvement of your chest pain. Recommended to follow up with Dr. Salinas in the office this coming Friday to have a cardiac stress test. You are discharged with aspirin and statin. Your cholesterol was noted to be high. PROBLEM: (chest pain) GOAL: Clear understanding of disease process INSTRUCTIONS: Diet: AHA Activity: Ad kristin DME DME: Date Ordered: Name of Company: [employer] Services Needed: Name of Company: Date or Referral: IMMUNIZATION Influenza Vaccine Indicated: Influenza Vaccine Given: Date Given: Pneumonia Vaccine Indicated: No Pneumonia Vaccine Given: Date Given: Diet: AHA Activity: Ad kristin Followup: Sarah Meadows NP [Primary Care Provider] - Eduard Salinas MD [ACTIVE - CAN ADMIT] - 1-2 Days Time spent managing pt's care (in minutes): 60
--- NOTE | 2021-05-12 20:00 | CON ---
Date of Consultation: 05/12/2021 Reason For Consultation: Chest pain. History Of Present Illness: A 40-year-old male with history of hemochromatosis with stable liver con dition, history of cocaine use, sober for some time now, active smoker, presented with chest pain, pr essure-like, related to exertion. He has been having this for the past month. Since he was admitted , has no further chest pain. Denies having any diaphoresis or radiation of the pain. No shortness o f breath. No other complaints. Past Medical History: As outlined above in HPI. Medications: Refer to reconciliation sheet for detailed list. Allergies: NO KNOWN DRUG ALLERGIES. Family History: History of coronary artery disease in both sides of family. Social History: Active smoker half a pack per day. Ex cocaine user. Drinks on occasions. He used to be heavy drinker. Review of Systems: All systems reviewed and they were negative except what is mentioned in HPI. Physical Examination: Vital signs: Reviewed. Temperature is 97.0, pulse 61, breathing at 18, blood pressure 127/75, satur ating 98% on room air. GENERAL: A pleasant young male, in no distress. HEAD AND NECK: Pupils are equal, reactive to light. Intact eye movements. No JVD. No cervical lym phadenopathy. Neck: Supple. Lungs: Clear to auscultation bilaterally. No rhonchi, rales, or crackles. No accessory muscle use. Heart: Regular rate and rhythm. No extra sounds. Abdomen: Soft, nontender. Bowel sounds positive. No organomegaly. No masses or hernia. No rigidi ty or rebound. Extremities: No edema, clubbing, cyanosis. Intact pulses. Skin: No rashes. Neurologic: Alert, awake, oriented x3. No acute process. Investigations: Cardiac enzymes x3 are negative. Creatinine 0.77. Hemoglobin is 14.7. EKG without acute specific abnormalities. Assessment And Plan: Chest pain. This is a typical pain per story, can represent angina. If the pa tient is asymptomatic at this point, given the negative troponins, further workup can be done as an o utpatient. He will need for the least to do a stress test and a possible coronary angiogram soon. I t is okay to release the patient if with activities he does not have any chest pain, otherwise if he continues to have chest pain then to keep over the weekend and plan for a stress test versus angiogra m on Friday morning. Discontinue baby aspirin and the patient was counseled to quit smoking. /EVERETT Voice ID: [id number] Report ID: [id number]
[2021-05-12] MEDS ORDERED: ATORVASTATIN 40 MG TAB PO SCH (21:00)
== END 2021-05-12 17:40 | disposition home or self-care (01) ==
LOC: ER 19:58 → ERHOLD 05-12 00:32 → 4TH 05-12 01:01
PROVIDERS: ADMIT Hospitalist; ATTEND Hospitalist
DX: R07.9 Chest pain, unspecified (principal); F17.210 Nicotine dependence, cigarettes, uncomplicated; E83.119 Hemochromatosis, unspecified; K21.9 Gastro-esophageal reflux disease without esophagitis; Z20.822 Contact with and (suspected) exposure to COVID-19
CPT/HCPCS: 36415; 71045; 80048; 80053; 80061; 80076; 80307; 81003; 82728; 83735; 83880; 84439; 84443; 84484; 85025; 85610; 99285; G0378; J1650; U0003

== ENCOUNTER 2021-05-13 19:44 | Observation (INO) | payer OTHER ==
[2021-05-14 00:15] LABS: Absolute Lymphocytes (CBC) 2.9 K/uL (0.7-4.9); Basophils % 0.4 % (0-1.3); Hematocrit 41.5 % (39.6-49.0); Lymphocytes % 34.6 % (15.3-44.8); MPV 7.1 fL (7.6-11.3); RBC Red Blood Cell Count 4.66 M/uL (4.33-5.43)
[2021-05-14 00:17] LABS: Protime INR 0.97
[2021-05-14 00:29] LABS: AST/SGOT 17 U/L (15-37); BUN Blood Urea Nitrogen 17 mg/dL (7-18); Bicarbonate 24 mmol/L (21-32); Glucose Level 149 mg/dL (74-106); Potassium 3.3 mmol/L (3.5-5.1); Sodium Level 142 mmol/L (136-145)
[2021-05-14 00:30] LABS: ALT/SGPT 15 U/L (12-78); Albumin 3.4 g/dL (3.4-5.0); Alkaline Phosphatase 72 U/L (45-117); Bilirubin Direct 0.2 mg/dL (0-0.2); Bilirubin Total 0.4 mg/dL (0.2-1.0); Magnesium 2.3 mg/dL (1.8-2.4); NT PRO-BNP 39 pg/mL (<125); Protein, Total 7.4 g/dL (6.4-8.2); Troponin (Emerg Dept Use Only) < 0.02 ng/mL (0.0-0.045)
--- NOTE | 2021-05-14 00:32 | EDPHYS ---
Physician Documentation [facility] Name: Diogo Holden Age: 40 yrs Sex: Male : 1980 Arrival Date: 05/13/2021 Time: 19:46 Bed 15 Private MD: Sarah Meadows ED Physician Elaine Honeycutt HPI: 05/14 00:25 This 40 yrs old Male presents to ER via Ambulatory with complaints of Chest pm1 Pressure. 00:25 The patient or guardian reports chest pain that is located primarily in the substernal pm1 area. The pain does not radiate. Associated signs and symptoms: Pertinent positives: nausea, shortness of breath, Pertinent negatives: abdominal pain, cough, diaphoresis, headache, vomiting. The chest pain is described as a pressure. Duration: The patient or guardian reports multiple episodes. Modifying factors: The symptoms are alleviated by rest, the symptoms are aggravated by exertion, walking. Severity of pain: in the emergency department the pain has improved. The patient has been recently been admitted at [facility], was discharged yesterday. Patient had outpatient stress test scheduled but chest pressure returned yesterday with minimal exertion. Historical: - Allergies: 05/13 20:11 Risperdal; lp1 20:11 acetylcysteine; lp1 - Home Meds: 20:11 atorvastatin 20 mg Oral tab 1 tab once daily [Active]; gabapentin Oral [Active]; lp1 Omeprazole Oral [Active]; Zofran (as hydrochloride) Oral [Active]; Lexapro Oral [Active]; biotin Oral [Active]; - PMHx: 20:11 "stomach issues"; Chronic pain; Hyperlipidemia; liver failure; Myocardial infarction; lp1 - PSHx: 20:11 None; lp1 - Immunization history:: Adult Immunizations up to date. - Social history:: Smoking status: Patient reports the use of cigarette tobacco products, smokes one-half pack cigarettes per day. ROS: 05/14 00:25 Constitutional: Negative for fever, chills, and weight loss, Eyes: Negative for injury, pm1 pain, redness, and discharge, ENT: Negative for injury, pain, and discharge, Neck: Negative for injury, pain, and swelling. Back: Negative for injury and pain, MS/Extremity: Negative for injury and deformity, Skin: Negative for injury, rash, and discoloration, Neuro: Negative for headache, weakness, numbness, tingling, and seizure. Cardiovascular: Positive for chest pain, Negative for edema, palpitations. Respiratory: Positive for shortness of breath, on exertion. Abdomen/GI: Positive for nausea, Negative for abdominal pain, vomiting, diarrhea. Exam: 00:25 Constitutional: This is a well developed, well nourished patient who is awake, alert, pm1 and in no acute distress. Head/Face: Normocephalic, atraumatic. 00:25 Skin: Warm, dry with normal turgor. Normal color with no rashes, no lesions, and no evidence of cellulitis. MS/ Extremity: Pulses equal, no cyanosis. Neurovascular intact. Full, normal range of motion. 00:25 Chest/axilla: Inspection: normal, Palpation: is normal, no crepitus, no tenderness. 00:25 Cardiovascular: Exam negative for acute changes, Rate: normal, Rhythm: regular, Pulses: no pulse deficits are appreciated. 00:25 Respiratory: Exam negative for acute changes, respiratory distress, shortness of breath, Breath sounds: are clear throughout. 00:25 Abdomen/GI: Inspection: abdomen appears normal, Palpation: abdomen is soft and non-tender, in all quadrants. 00:25 Neuro: Exam negative for acute changes, Orientation: is normal, Mentation: is normal, Motor: is normal, moves all fours. Vital Signs: 05/13 20:12 BP 112 / 83; Pulse 75; Resp 18; Temp 98.3(TE); Pulse Ox 99% on R/A; Weight 97.52 kg lp1 (R); Height 6 ft. 1 in. (185.42 cm); Pain 3/10; 05/14 00:30 BP 116 / 78; Pulse 62; Resp 16; Pulse Ox 99% on R/A; lp1 01:15 BP 106 / 70; Pulse 58; Resp 16; Pulse Ox 100% on R/A; lp1 05/13 20:12 Body Mass Index 28.37 (97.52 kg, 185.42 cm) lp1 MDM: 05/13 22:43 Patient medically screened. pm1 23:48 Data reviewed: vital signs. Data interpreted: Pulse oximetry: on room air is 99 %. pm1 Interpretation: normal. Counseling: I had a detailed discussion with the patient and/or guardian regarding: the historical points, exam findings, and any diagnostic results supporting the discharge/admit diagnosis. 05/13 22:44 Order name: Basic Metabolic Panel; Complete Time: 00:32 pm1 05/13 22:44 Order name: CBC with Diff; Complete Time: 00:32 pm1 05/13 22:44 Order name: LFT's; Complete Time: 00:32 pm1 05/13 22:44 Order name: Magnesium; Complete Time: 00:32 pm1 05/13 22:44 Order name: NT PRO-BNP; Complete Time: 00:32 pm1 05/13 22:44 Order name: PT-INR; Complete Time: 00:32 pm1 05/13 22:44 Order name: Troponin (emerg Dept Use Only); Complete Time: 00:32 pm1 05/13 22:44 Order name: XRAY Chest (1 view) pm1 05/13 22:44 Order name: EKG; Complete Time: 22:44 pm1 05/13 23:56 Order name: DD la1 05/13 23:58 Order name: D-Dimer; Complete Time: 00:32 EDMS 05/13 22:44 Order name: Cardiac monitoring; Complete Time: 00:07 pm1 05/13 22:44 Order name: EKG - Nurse/Tech; Complete Time: 00:07 pm1 05/13 22:44 Order name: IV Saline Lock; Complete Time: 00:07 pm1 05/13 22:44 Order name: Labs collected and sent; Complete Time: 00:07 pm1 05/13 22:44 Order name: O2 Per Protocol; Complete Time: 00:07 pm1 05/13 22:44 Order name: O2 Sat Monitoring; Complete Time: 00:07 pm1 Administered Medications: 05/14 01:19 Drug: Aspirin Chewable Tablet 324 mg Route: PO; fu 01:19 Drug: Potassium Chloride 40 mEq Route: PO; fu Disposition: 05/14/21 00:31 Hospitalization ordered by Elaine Moreno for Observation. Preliminary diagnosis is Chest pain, unspecified. - Bed requested for Telemetry/MedSurg (observation). - Status is Observation. lp1 - Condition is Stable. - Problem is new. - Symptoms have improved. Signatures: Dispatcher [employer] EDMS Lashawn Burr RN RN lp1 Josefina Rinaldi RN RN Glen Remy, LETICIA LEGAL SUPPORT SPECIALIST pm1 Yovany Schneider RN RN fu Corrections: (The following items were deleted from the chart) 05/13 23:58 23:56 D-Dimer ordered. EDNJ EDNJ 05/14 01:06 00:31 Hospitalization Ordered by Elaine Moreno MD for Observation. Preliminary cg diagnosis is Chest pain, unspecified. Bed requested for Telemetry/MedSurg (observation). Status is Observation. Condition is Stable. Problem is new. Symptoms have improved. pm1 02:03 01:06 05/14/2021 00:31 Hospitalization Ordered by Elaine Moreno MD for Observation. lp1 Preliminary diagnosis is Chest pain, unspecified. Bed requested for Telemetry/MedSurg (observation). Status is Observation. Condition is Stable. Problem is new. Symptoms have improved. cg
--- NOTE | 2021-05-14 00:32 | ER ---
Nurse's Notes [facility] Name: Diogo Holden Age: 40 yrs Sex: Male : 1980 Arrival Date: 05/13/2021 Time: 19:46 Bed 15 Private MD: Sarah Meadows Diagnosis: Chest pain, unspecified Presentation: 05/13 20:06 Chief complaint: Patient states: Recently discharged from hospital yesterday; Reports lp1 after discharge patient was walking around [facility] and became light headed, and began to have some chest pressure; was told by medical physicist to return if symptoms continued; patient has f/u instructions to call Friday to schedule stress test with medical physicist. Coronavirus screen: Client denies travel out of the [place] in the last 14 days. At this time, the client does not indicate any symptoms associated with coronavirus-19. Ebola Screen: No symptoms or risks identified at this time. Risk Assessment: Do you want to hurt yourself or someone else? Patient reports no desire to harm self or others. Onset of symptoms was May 13, 2021. 20:06 Method Of Arrival: Ambulatory lp1 20:06 Acuity: HEATHER 3 lp1 20:12 Initial Sepsis Screen: Does the patient meet any 2 criteria? No. Patient's initial lp1 sepsis screen is negative. Does the patient have a suspected source of infection? No. Patient's initial sepsis screen is negative. Historical: - Allergies: 20:11 Risperdal; lp1 20:11 acetylcysteine; lp1 - Home Meds: 20:11 atorvastatin 20 mg Oral tab 1 tab once daily [Active]; gabapentin Oral [Active]; lp1 Omeprazole Oral [Active]; Zofran (as hydrochloride) Oral [Active]; Lexapro Oral [Active]; biotin Oral [Active]; - PMHx: 20:11 "stomach issues"; Chronic pain; Hyperlipidemia; liver failure; Myocardial infarction; lp1 - PSHx: 20:11 None; lp1 - Immunization history:: Adult Immunizations up to date. - Social history:: Smoking status: Patient reports the use of cigarette tobacco products, smokes one-half pack cigarettes per day. Screenin:11 Abuse screen: Denies threats or abuse. Denies injuries from another. Nutritional lp1 screening: No deficits noted. Tuberculosis screening: No symptoms or risk factors identified. Fall Risk None identified. Assessment: 23:50 General: Appears uncomfortable, Behavior is calm, cooperative, appropriate for age. zb Pain: Complains of pain in mid-sternal area Pain radiates to back Pain currently is 3 out of 10 on a pain scale. Pain began 2-3 days ago. Is intermittent. Neuro: Level of Consciousness is awake, alert, obeys commands, Oriented to person, place, time, situation. Cardiovascular: Reports chest pain, Denies nausea, palpitations, shortness of breath, syncope, vomiting, Heart tones S1 S2 present Patient's skin is warm and dry. Rhythm is sinus bradycardia. Respiratory: Airway is patent Respiratory effort is even, unlabored, Respiratory pattern is regular, symmetrical. GI: Abdomen is flat. Derm: Skin is intact, is healthy with good turgor. Musculoskeletal: Circulation, motion, and sensation intact. Range of motion:. 05/14 01:00 Reassessment: Patient appears in no apparent distress at this time. Patient is alert, lp1 oriented x 3, equal unlabored respirations, skin warm/dry/pink. Patient aware of pending admission. Vital Signs: 05/13 20:12 BP 112 / 83; Pulse 75; Resp 18; Temp 98.3(TE); Pulse Ox 99% on R/A; Weight 97.52 kg lp1 (R); Height 6 ft. 1 in. (185.42 cm); Pain 3/10; 05/14 00:30 BP 116 / 78; Pulse 62; Resp 16; Pulse Ox 99% on R/A; lp1 01:15 BP 106 / 70; Pulse 58; Resp 16; Pulse Ox 100% on R/A; lp1 05/13 20:12 Body Mass Index 28.37 (97.52 kg, 185.42 cm) lp1 ED Course: 05/13 19:46 Patient arrived in ED. es 19:46 Sarah Meadows is Private Physician. es 20:09 Triage completed. lp1 20:09 Arm band placed on left wrist. lp1 22:33 Glen Remy NP is PHCP. pm1 22:33 Elaine Honeycutt MD is Attending Physician. pm1 23:05 XRAY Chest (1 view) In Process Unspecified. EDMS 23:21 Carine Soler, SLAVA is Primary Nurse. zb 05/14 00:11 Patient has correct armband on for positive identification. manager of internal on. Pulse zb ox on. NIBP on. Door closed. Noise minimized. Warm blanket given. PO fluids given. 00:11 Inserted saline lock: 20 gauge in right antecubital area, using aseptic technique. zb Blood collected. Patient maintains SpO2 saturation greater than 95% on room air. 00:11 EKG done, by ED staff, reviewed by Elaine Honeycutt MD. zb 00:20 Report received from SLAVA Hawk. lp1 00:31 Elaine Moreno MD is Hospitalizing Provider. pm1 01:00 No provider procedures requiring assistance completed. Patient admitted, IV remains in lp1 place. Administered Medications: 01:19 Drug: Aspirin Chewable Tablet 324 mg Route: PO; fu 01:19 Drug: Potassium Chloride 40 mEq Route: PO; fu Outcome: 00:31 Decision to Hospitalize by Provider. pm1 01:30 Admitted to Tele room 406, with chart, Report called to SLAVA Moyer by STEFAN Shaver lp1 01:30 Condition: stable 01:30 Instructed on the need for admit. 02:03 Patient left the ED. lp1 Signatures: Dispatcher [employer] EDMT Mary Anne Omalley Laura, RN RN lp1 Glen Remy, LETICIA VACUUM CLOSING MACHINE OPERATOR pm1 Yovany Schneider RN RN fu Brown, Zipporah, RN RN zb
[2021-05-14] MEDS ORDERED: ASPIRIN 81 MG CHEWABLE TABLET ONE (01:36)
[2021-05-14] MEDS ORDERED: POTASSIUM CL SA 10 MEQ TAB PO ONE (01:36)
--- NOTE | 2021-05-14 01:46 | P.HP ---
Certification for Inpatient Patient admitted to: Observation With expected LOS: <2 Midnights Patient will require the following post-hospital care: None Practitioner: I am a practitioner with admitting privileges, knowledge of patient current condition, hospital course, and medical plan of care. 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 Patient was seen approximately 2 days prior and was admitted for chest pain, had his troponins trended which were negative and ambulated well with labs around the floor without having any chest pain and was supposed to follow up on Friday for outpatient stress test. [facility] a walking around [facility] experienced severe pressure-like chest pain, shortness of breath, dizziness. Patient returned to the emergency department. Left the emergency department significant for potassium 3.3 initial troponin negative EKG without acute changes chest x-ray unremarkable. ED prior wishes to admit for further evaluation and management. Allergies No Known Allergies Allergy (Uncoded 04/09/18 13:56) Unknown Home Medications: Amoxicillin/Potassium Clav [Amox-Clav 875-125 mg Tablet] 1 each PO BID 05/12/21 Aspirin [Aspirin EC 81 MG] 81 mg PO DAILY 30 Days #30 tablet. 05/12/21 Atorvastatin Calcium [Lipitor*] 20 mg PO BEDTIME 30 Days #30 tab 05/12/21 Andrae/Polym/Hc [Cortisporin 1% Otic Suspension*] 4 drops LEFT EAR QID 05/12/21 Tramadol HCl [Ultram] 50 mg PO Q6HP PRN 05/12/21 - Past Medical/Surgical History Diabetic: No -: Hemochromatosis -: Hepatic failure secondary to alcohol/Tylenol-resolved -: [place]? 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 moist/pink, EOMI, Sclerae nonicteric Neck: Supple, 2+ carotid pulse no bruit, No LAD, Without JVD or thyroid abnormality Respiratory: Clear to auscultation bilaterally, Normal air movement Cardiovascular: Regular rate/rhythm, Normal S1 S2 Gastrointestinal: Normal bowel sounds, No tenderness Musculoskeletal: No tenderness Integumentary: No rashes Neurological: Normal gait, Normal speech, Normal strength at 5/5 x4 extr, Normal tone, Normal affect Lymphatics: No axilla or inguinal lymphadenopathy - Studies Laboratory Data (last 24 hrs) 05/13/21 23:53: PT 11.1, INR 0.97 05/13/21 23:53: WBC 8.40, Hgb 14.0, Hct 41.5, Plt Count 259 05/13/21 23:53: Sodium 142, Potassium 3.3 L, BUN 17, Creatinine 0.88, Glucose 149 H, Magnesium 2.3, Total Bilirubin 0.4, AST 17, ALT 15, Alkaline Phosphatase 72 Assessment and Plan - Plan Assessment Chest pain rule out ACS Hyperlipidemia History of 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 Patient was supposed to have outpatient stress test this morning, have consulted cardiology and added stress test as patient is still having significant exertional chest pain. DVT prophylaxis with Lovenox 40 mg subcutaneous once daily, NPO in case intervention is needed. 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
[2021-05-14] MEDS: POTASSIUM CL SA 10 MEQ TAB PO ONE ×2 (02:18→02:23)
[2021-05-14] MEDS ORDERED: ONDANSETRON 4 MG/2 ML VIAL IV PRN (02:18)
[2021-05-14] MEDS ORDERED: MELATONIN 5 MG TABLET PO PRN (02:19)
[2021-05-14 02:21] VITALS: BMI 28.3
--- NOTE | 2021-05-14 08:30 | RAD REPORT ---
EXAM DESCRIPTION: RAD - Chest Single View - 05/13/2021 11:05 pm CLINICAL HISTORY: CHEST PAIN Chest pain. COMPARISON: Chest Single View dated 05/11/2021; Chest Single View dated 01/04/2019 FINDINGS: Portable technique limits examination quality. The lungs are grossly clear. The heart is normal in size. No displaced fractures. IMPRESSION: No acute intrathoracic process suspected.
[2021-05-14] MEDS ORDERED: ENOXAPARIN 40 MG/0.4 ML SQ SCH (09:00)
[2021-05-14] MEDS ORDERED: ASPIRIN EC 81 MG TAB PO SCH (09:00)
[2021-05-14] MEDS ORDERED: NA CHLORIDE 0.9% 500 ML ONE (11:20)
[2021-05-14] MEDS ORDERED: LIDOCAINE 1% 20 ML MDV ONE (11:37)
[2021-05-14] MEDS ORDERED: HEPA 1000U/500MLS 1,000 UNIT/500 ML BAG IV ONE (11:37)
[2021-05-14] MEDS ORDERED: VERAPAMIL HCL 10 MG/4 ML VIAL IV ONE (11:38)
[2021-05-14] MEDS ORDERED: NITROGLYCERIN/D5W 25 MG/250 ML BTL IV ONE (11:38)
[2021-05-14] MEDS ORDERED: HEPARIN 5000 UNIT/ML 1 ML VIAL ONE (11:38)
[2021-05-14] MEDS ORDERED: FENTANYL CITR 100 MCG/2 ML ONE (11:38)
[2021-05-14] MEDS ORDERED: ATROPINE SULF 1 MG/10 ML SYR IV ONE (11:38)
[2021-05-14] MEDS ORDERED: NITROGLYCERIN 100 MCG/ML SYR (for cath lab use only) IV ONE (11:38)
[2021-05-14] MEDS ORDERED: MIDAZOLAM HCL 2 MG/2 ML INJ ONE (11:38)
[2021-05-14] MEDS ORDERED: TICAGRELOR 90 MG TABLET PO ONE (12:06)
[2021-05-14] MEDS ORDERED: CLOPIDOGREL 75 MG TABLET ONE (12:07)
--- NOTE | 2021-05-14 13:14 | OP ---
Date of Procedure: 05/14/2021 Surgeon: ANGEL ROBLEDO Procedures Performed: 1.Selective coronary angiogram. 2.Left heart catheterization. Access: Right radial artery 6-Mongolian closed with TR band. Indication: Unstable angina. Anesthesia: Total sedation time was 15 minutes. Complications: None. Bleeding Less: Than 5 mL. Description Of Procedure: After risks, benefits, and alternatives were explained, the patient agreed to the procedure and signed informed consent. The patient was brought into the cardiac catheterizat ion laboratory, prepped and draped in usual sterile fashion. Then, we accessed right radial artery u sing pediatric micropuncture kit and placed a 6-Mongolian Slender sheath. Subsequently, we took a 5-[facility] 4.0 catheter into the aortic root over a J-wire, engaged left main and right coronary arter y, and then took standard views. Then, we took the catheter over the wire into the left ventricle ac ross the aortic valve, recorded LVEDP, and pullback recorded. No difference in pressure. The cathet er was removed. Sheath was removed. TR band was applied with good hemostasis. Findings: 1.Left main; large and normal. 2.LAD; large and normal. 3.Left circumflex; moderate-sized and normal. 4.RCA; large, dominant and normal. 5.LVEDP of 9 mmHg. Conclusions: 1.Normal coronary arteries. 2.Normal LVEDP. Recommendations: Medical management and rule out other causes of chest pain. SR/MODL Voice ID: [id number] Report ID: [id number]
[2021-05-14 14:30] VITALS: BP 140/97; TEMP 97.6; O2SAT 98
[2021-05-14] MEDS ORDERED: ACETAMINOPHEN 325 MG TABLET PO PRN (16:23)
[2021-05-14] MEDS ORDERED: NITROGLYCERIN 0.4 MG/TAB SL PRN (16:24)
[2021-05-14] MEDS ORDERED: NA CHLORIDE 0.9% 1,000 ML IV SCH (17:00)
--- NOTE | 2021-05-14 17:13 | P.DS ---
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 Patient was seen approximately 2 days prior and was admitted for chest pain, had his troponins trended which were negative and ambulated well with labs around the floor without having any chest pain and was supposed to follow up on Friday for outpatient stress test. Patient went to get his prescriptions filled at [facility] in a walking around [employer] experienced severe pressure-like chest pain, shortness of breath, dizziness. Patient returned to the emergency department. Left the emergency department significant for potassium 3.3 initial troponin negative EKG without acute changes chest x-ray unremarkable. ED prior wishes to admit for further evaluation and management. Vital Signs/Physical Exam: Temp Pulse Resp BP Pulse Ox 97.6 F 62 14 140/97 H 99 05/14/21 14:28 05/14/21 14:28 05/14/21 14:28 05/14/21 14:28 05/14/21 08:00 Laboratory Data at Discharge: WBC 8.40 K/uL (4.3-10.9) 05/13/21 23:53 Hgb 14.0 g/dL (13.6-17.9) 05/13/21 23:53 Hct 41.5 % (39.6-49.0) 05/13/21 23:53 Plt Count 259 K/uL (152-406) 05/13/21 23:53 PT 11.1 SECONDS (9.5-12.5) 05/13/21 23:53 INR 0.97 05/13/21 23:53 Sodium 142 mmol/L (136-145) 05/13/21 23:53 Potassium 4.5 mmol/L (3.5-5.1) 05/14/21 07:52 BUN 17 mg/dL (7-18) 05/13/21 23:53 Creatinine 0.88 mg/dL (0.55-1.3) 05/13/21 23:53 Glucose 149 mg/dL (74-106) H 05/13/21 23:53 Magnesium 2.3 mg/dL (1.8-2.4) 05/13/21 23:53 Total Bilirubin 0.4 mg/dL (0.2-1.0) 05/13/21 23:53 AST 17 U/L (15-37) 05/13/21 23:53 ALT 15 U/L (12-78) 05/13/21 23:53 Alkaline Phosphatase 72 U/L (45-117) 05/13/21 23:53 Troponin I < 0.02 ng/mL (0.0-0.045) 05/14/21 10:33 Home Medications: Amoxicillin/Potassium Clav [Amox-Clav 875-125 mg Tablet] 1 each PO BID 05/12/21 Aspirin [Aspirin EC 81 MG] 81 mg PO DAILY 30 Days #30 tablet. 05/12/21 Andrae/Polym/Hc [Cortisporin 1% Otic Suspension*] 4 drops LEFT EAR QID 05/12/21 Tramadol HCl [Ultram] 50 mg PO Q6HP PRN 05/12/21 Atorvastatin Calcium [Lipitor] 40 mg PO BEDTIME #30 tab 05/14/21 Melatonin 5 mg PO BEDTIME PRN PRN #20 tablet 05/14/21 Nicotine [Nicotine Patch] 1 each TD DAILY #30 patch.td24 05/14/21 New Medications: Atorvastatin Calcium [Lipitor] 40 mg PO BEDTIME #30 tab Melatonin 5 mg PO BEDTIME PRN PRN #20 tablet PRN Reason: Insomnia Nicotine [Nicotine Patch] 1 each TD DAILY #30 patch.td24 Physician Discharge Instructions: OK TO DC IV AND DC HOME FOLLOW-UP WITH PRIMARY CARE PROVIDER IN 1-2 WEEKS FOLLOW-UP WITH CARDIOLOGY IN 1-2 WEEKS RETURN TO THE ER IF pain returned CALL or TEXT DR. AVITIA AT [phone] IF ANY QUESTIONS REGARDING HOSPITAL STAY. PLEASE CALL THE FLOOR AT [phone] IF ANY MEDICATION OR NURSING QUESTIONS. Diet: AHA Activity: Fall precautions Followup: Sarah Meadows NP [Primary Care Provider] -
[2021-05-14] MEDS ORDERED: ATORVASTATIN 40 MG TAB PO SCH (21:00)
== END 2021-05-14 18:40 | disposition home or self-care (01) ==
LOC: ER 19:44 → ERHOLD 05-14 00:47 → 4TH 05-14 01:16
PROVIDERS: ADMIT Hospitalist; ATTEND Hospitalist
DX: R07.9 Chest pain, unspecified (principal); E83.119 Hemochromatosis, unspecified; R06.02 Shortness of breath; R42 Dizziness and giddiness; Z87.891 Personal history of nicotine dependence; E78.5 Hyperlipidemia, unspecified
CPT/HCPCS: 36415; 71045; 80048; 80076; 83735; 83880; 84132; 84484; 85025; 85379; 85610; 93005; 93458; 99285; C1893; G0378; J1644; J1650; J2250; J3010; J7030; J7040